=== PATIENT | male | born 1935 | race Caucasian/White ===

== ENCOUNTER 2016-11-20 05:22 | Emergency (ER) | payer MEDICARE, OTHER ==
[2016-11-20 05:28] VITALS: RESP 16
[2016-11-20] MEDS ORDERED: cloNIDine HCL 0.1 MG TAB PO STA (05:29)
[2016-11-20] MEDS ORDERED: OXYMETAZOLINE 0.05% NASL SPRAY 15 ML NASAL STA (05:29)
[2016-11-20 05:48] LABS: Basophils % (A) 0 %; CH 30.6; CHCM 33.8; Eosinophils # (A) 0.2 k/uL (0-0.7); Eosinophils % (A) 3 %; HCT 37.5 % (39.0-53.0); HDW 2.79; HGB 12.5 gm/dL (13.0-17.5); Luc # (Auto) 0.22; Luc % (Auto) 3; Lymphocytes # (A) 1.3 k/uL (1.0-4.8); Lymphocytes % (A) 16 %; MCH 30.3 pg (25.0-35.0); MCHC 33.3 g/dL (31.0-37.0); Mean Platelet Volume 7.2; Monocytes # (A) 0.5 k/uL (0-1.0); Monocytes % (A) 6 %; Neutrophils # (A) 5.4 k/uL (1.3-7.7); Neutrophils % (A) 71 %; RBC 4.12 m/uL (4.30-5.90); RDW 14.4 % (11.5-15.5); WBC 7.6 k/uL (3.8-10.6); WBC (Perox) 7.65
[2016-11-20 05:59] LABS: Anion Gap 13 mmol/L; Blood Urea Nitrogen 33 mg/dL (9-20); Calcium 8.9 mg/dL (8.4-10.2); Carbon Dioxide 26 mmol/L (22-30); Chloride 103 mmol/L (98-107); Glucose 99 mg/dL (74-99); Non-African American GFR(MDRD) >60 (>60 ml/min/1.73 sqM); Potassium 3.9 mmol/L (3.5-5.1); Sodium 142 mmol/L (137-145)
[2016-11-20 06:00] LABS: Partial Thromboplastin Time 22.9 sec (22.0-30.0)
--- NOTE | 2016-11-20 07:14 | ED ---
ENT HPI - General Chief complaint: ENT Stated complaint: nose bleed Time Seen by Provider: 11/20/16 05:28 Source: patient Mode of arrival: EMS Limitations: no limitations - History of Present Illness Initial comments: This patient is an 81-year-old man who presents with nosebleed. He states that he has had some intermittent bleeding over the past couple of days, and then between 1 and 2 hours ago this recurred this morning. The patient states he tried holding pressure there but did not stop, and therefore called the ambulance. The patient denies symptoms of anemia, including no chest pain, dyspnea, nausea or vomiting, diaphoresis, lightheadedness or syncope. Patient is not having any nasal pain. Patient states that he does occasionally get some sinus pressure. MD complaint: epistaxis -: hour(s) Location: nose Severity: mild Consistency: constant Improves with: pressure Worsens with: none Context-Epistaxis: history of similar - Related Data Home Medications Medication Instructions Recorded Confirmed rOPINIRole HCL [Requip] 0.5 mg PO HS 11/20/16 11/20/16 Allergies Allergy/AdvReac Type Severity Reaction Status Date / Time No Known Allergies Allergy Verified 11/20/16 07:46 Review of Systems ROS Statement: Those systems with pertinent positive or pertinent negative responses have been documented in the HPI. ROS Other: All systems not noted in ROS Statement are negative. Constitutional: Denies: fever, chills, weakness Eyes: Denies: vision change ENT: Reports: epistaxis Respiratory: Denies: cough, dyspnea Cardiovascular: Denies: chest pain, palpitations, syncope Gastrointestinal: Denies: abdominal pain, vomiting Neurological: Denies: headache, weakness Hematological/Lymphatic: Denies: easy bleeding Past Medical History Past Medical History: Hypertension, Pneumonia Additional Past Medical History / Comment(s): CURRENTLY NON WT BEARING, USING WHEELCHAIR, HX SKIN CA, RT EYE BLURRED VISION, RECENT TX FOR "PLUGGED LEFT EAR" , RECENT FOR UTI History of Any Multi-Drug Resistant Organisms: None Reported Past Surgical History: Cholecystectomy, Joint Replacement Additional Past Surgical History / Comment(s): 10/24/14 Total R hip arthroplasty. RT KNEE REPLACED X2,LT KNEE REPLACED Past Anesthesia/Blood Transfusion Reactions: No Reported Reaction Past Psychological History: No Psychological Hx Reported Additional Psychological History / Comment(s): Pt lives alone in a multilevel home. Pt has a friend that is availabel to help him with any of his needs. Pt states his biggest problem is getting in and out of bed. Pt and his friend are hoping tohave pt go to [facility] for post op rehab. Pt is mostly in a w/c or bed at this time. Pt has a power w/chair at home and a chairlift to go up the stairs. [facility] did have [place] [facility] coming into the home once a week foe personal care. Pt did not have a good experience with [facility] home care in the past. Smoking Status: Former smoker Past Alcohol Use History: None Reported Additional Past Alcohol Use History / Comment(s): STARTED SMOKING CIGARS 1964 QUIT SMOKING 1993 Past Drug Use History: None Reported - Past Family History Mother Family Medical History: Cancer General Exam Limitations: no limitations General appearance: alert, in no apparent distress Head exam: Present: atraumatic, normocephalic Eye exam: Present: normal appearance ENT exam: Present: normal oropharynx, other (There is blood from the right naris.) Neck exam: Present: normal inspection Respiratory exam: Present: normal lung sounds bilaterally. Absent: respiratory distress, wheezes, rales, rhonchi, stridor Cardiovascular Exam: Present: regular rate, normal rhythm, normal heart sounds. Absent: systolic murmur, diastolic murmur, rubs, gallop Neurological exam: Present: alert Skin exam: Present: warm, dry, intact, normal color. Absent: rash Course Vital Signs 11/20/16 11/20/16 11/20/16 05:24 06:52 07:29 Temperature 97 F L Pulse Rate 80 74 74 Respiratory 16 16 16 Rate Blood Pressure 155/77 158/69 158/77 O2 Sat by Pulse 98 97 97 Oximetry 11/20/16 08:22 Temperature 96.8 F L Pulse Rate 87 Respiratory 16 Rate Blood Pressure 125/59 O2 Sat by Pulse 98 Oximetry Medical Decision Making - Medical Decision Making I did see the patient and apply oxymetazoline spray to the right naris. The pressure was then applied using a epistaxis clamp. I then reevaluated the patient probably 20 minutes later and the bleeding has stopped. There does appear to be a small area of bleeding to the septum which has adequately stopped and does not require any further attention at this point. Discussed follow-up with ENT on as needed basis. Discussed return parameters here. - Lab Data Result diagrams: 11/20/16 05:40 11/20/16 05:40 Lab Results 11/20/16 11/20/16 11/20/16 Range/Units 05:40 05:40 05:40 WBC 7.6 (3.8-10.6) k/uL RBC 4.12 L (4.30-5.90) m/uL Hgb 12.5 L (13.0-17.5) gm/dL Hct 37.5 L (39.0-53.0) % MCV 91.0 (80.0-100.0) fL MCH 30.3 (25.0-35.0) pg MCHC 33.3 (31.0-37.0) g/dL RDW 14.4 (11.5-15.5) % Plt Count 195 (150-450) k/uL Neutrophils % 71 % Lymphocytes % 16 % Monocytes % 6 % Eosinophils % 3 % Basophils % 0 % Neutrophils # 5.4 (1.3-7.7) k/uL Lymphocytes # 1.3 (1.0-4.8) k/uL Monocytes # 0.5 (0-1.0) k/uL Eosinophils # 0.2 (0-0.7) k/uL Basophils # 0.0 (0-0.2) k/uL PT 10.0 (9.0-12.0) sec INR 1.0 (<1.1) APTT 22.9 (22.0-30.0) sec Sodium 142 (137-145) mmol/L Potassium 3.9 (3.5-5.1) mmol/L Chloride 103 (98-107) mmol/L Carbon Dioxide 26 (22-30) mmol/L Anion Gap 13 mmol/L BUN 33 H (9-20) mg/dL Creatinine 0.90 (0.66-1.25) mg/dL Est GFR (MDRD) Af Amer >60 (>60 ml/min/1.73 sqM) Est GFR (MDRD) Non-Af >60 (>60 ml/min/1.73 sqM) Glucose 99 (74-99) mg/dL Calcium 8.9 (8.4-10.2) mg/dL Disposition Clinical Impression: Epistaxis, Hypertension Disposition: HOME SELF-CARE Condition: Good Instructions: Nosebleed (ED), Hypertension (ED) Referrals: None,Stated [Primary Care Provider] - 1-2 days Herbert Alcazar MD [STAFF PHYSICIAN] - 1-2 days
[2016-11-20 08:24] VITALS: BP 125/59; PULSE 87; TEMP 96.8
== END 2016-11-20 08:22 | disposition home or self-care (01) ==
LOC: EC 05:22
DX: R04.0 Epistaxis (principal); I10 Essential (primary) hypertension; Z99.3 Dependence on wheelchair; Z87.891 Personal history of nicotine dependence; Z79.899 Other long term (current) drug therapy
CPT/HCPCS: 36415; 80048; 85025; 85610; 85730; 99284

== ENCOUNTER 2019-06-24 07:11 | Observation (INO) | payer MEDICARE, OTHER ==
[2019-06-24] MEDS ORDERED: ACETAMINOPHEN TAB 500 MG TAB PO STA (07:44)
[2019-06-24] MEDS ORDERED: SODIUM CHLORIDE 0.9% 500 ML 500 ML IV SCH (07:45)
--- NOTE | 2019-06-24 07:49 | ED ---
General Adult HPI - General Chief complaint: Weakness Stated complaint: Weakness Time Seen by Provider: 06/24/19 07:19 Source: patient, EMS, RN notes reviewed Mode of arrival: EMS Limitations: physical limitation - History of Present Illness Initial comments: Patient is a pleasant 84-year-old male presenting to the emergency Department with complaints of general weakness. Onset of symptoms was somewhat yesterday, worse today. No history of similar symptoms previously. No cough. No dyspnea. No abdominal pain. No dysuria. No isolated area of weakness except for chronic right leg weakness. Patient states it just doesn't work. Patient states this is chronic and unchanged. Patient admits to feeling somewhat lightheaded. - Related Data Home Medications Medication Instructions Recorded Confirmed Acetaminophen Tab [Tylenol Tab] 650 mg PO Q4H PRN 06/24/19 06/24/19 Allopurinol [Zyloprim] 100 mg PO BID 06/24/19 06/24/19 Atorvastatin [Lipitor] 20 mg PO HS 06/24/19 06/24/19 Cefditoren Pivoxil 200 mg PO BID 06/24/19 06/24/19 Cholecalciferol (Vitamin D3) 2,000 unit PO DAILY 06/24/19 06/24/19 [Vitamin D3] Docusate [Colace] 100 mg PO DAILY PRN 06/24/19 06/24/19 Fenofibrate 160 mg PO DAILY 06/24/19 06/24/19 Gabapentin [Neurontin] 300 mg PO TID 06/24/19 06/24/19 Gemfibrozil [Lopid] 600 mg PO AC-BID 06/24/19 06/24/19 HYDROcodone/APAP 5-325MG [[place] 1 tab PO BID PRN 06/24/19 06/24/19 5-325] Levothyroxine Sodium [Synthroid] 75 mcg PO DAILY 06/24/19 06/24/19 Lisinopril-Hctz 20-25 mg 1 tab PO DAILY 06/24/19 06/24/19 [Zestoretic 20-25] rOPINIRole HCL [Requip] 1 mg PO HS 06/24/19 06/24/19 Allergies Allergy/AdvReac Type Severity Reaction Status Date / Time No Known Allergies Allergy Verified 06/24/19 09:03 Review of Systems ROS Statement: Those systems with pertinent positive or pertinent negative responses have been documented in the HPI. ROS Other: All systems not noted in ROS Statement are negative. Constitutional: Denies: fever, chills Eyes: Denies: eye pain ENT: Denies: ear pain Respiratory: Denies: cough, dyspnea Cardiovascular: Denies: chest pain Endocrine: Reports: fatigue Gastrointestinal: Denies: abdominal pain, vomiting Genitourinary: Denies: dysuria Musculoskeletal: Denies: back pain Skin: Denies: rash Neurological: Denies: confusion Past Medical History Past Medical History: Hypertension, Pneumonia Additional Past Medical History / Comment(s): CURRENTLY NON WT BEARING, USING WHEELCHAIR, HX SKIN CA, RT EYE BLURRED VISION, RECENT TX FOR "PLUGGED LEFT EAR", RECENT FOR UTI History of Any Multi-Drug Resistant Organisms: None Reported Past Surgical History: Cholecystectomy, Joint Replacement Additional Past Surgical History / Comment(s): 10/24/14 Total R hip arthroplasty. RT KNEE REPLACED X2,LT KNEE REPLACED Past Anesthesia/Blood Transfusion Reactions: No Reported Reaction Past Psychological History: No Psychological Hx Reported Smoking Status: Former smoker Past Alcohol Use History: None Reported Past Drug Use History: None Reported - Past Family History Mother Family Medical History: Cancer General Exam Limitations: physical limitation General appearance: alert, in no apparent distress Head exam: Present: atraumatic Eye exam: Present: other (Right eye opacification which patient states is chronic) ENT exam: Present: mucous membranes dry Neck exam: Present: normal inspection. Absent: meningismus Respiratory exam: Present: normal lung sounds bilaterally Cardiovascular Exam: Present: regular rate, normal rhythm GI/Abdominal exam: Present: soft. Absent: tenderness Extremities exam: Present: normal inspection. Absent: pedal edema, calf tenderness Neurological exam: Present: alert, oriented X3 Expanded Neurological exam: Present: protecting the airway, other (Patient refuses to lift right leg stating chronic problems.) Patient oriented to: Present: person, place, time Speech: Present: fluid speech Motor strength exam: RUE: 5, LUE: 5, LLE: 5 Eye Response: (4) open spontaneously Motor Response: (6) obeys commands Verbal Response: (5) oriented Psychiatric exam: Present: normal affect, normal mood Skin exam: Present: normal color Course Vital Signs 06/24/19 06/24/19 06/24/19 07:13 09:29 09:31 Temperature 100.4 F H 98.9 F Pulse Rate 86 73 Respiratory 16 16 Rate Blood Pressure 121/46 134/57 O2 Sat by Pulse 93 L 100 Oximetry 06/24/19 11:13 Temperature Pulse Rate 66 Respiratory 16 Rate Blood Pressure 104/41 O2 Sat by Pulse 96 Oximetry EKG Findings - EKG Comments: EKG Findings:: Sinus rhythm at 70. First-degree AV block with KS of 232. QRS 96. QT 386. QTc 416. Left axis. LVH criteria. No acute ST change. Medical Decision Making - Medical Decision Making Patient reevaluated and updated. Patient resting comfortably in bed. Case discussed in detail with Dr. Larson, covering for hospital call, who will admit. - Lab Data Result diagrams: 06/24/19 07:26 06/24/19 07:26 Lab Results 06/24/19 06/24/19 06/24/19 Range/Units 07:26 07:26 07:26 WBC 8.8 (3.8-10.6) k/uL RBC 4.07 L (4.30-5.90) m/uL Hgb 11.9 L (13.0-17.5) gm/dL Hct 35.8 L (39.0-53.0) % MCV 87.9 (80.0-100.0) fL MCH 29.3 (25.0-35.0) pg MCHC 33.3 (31.0-37.0) g/dL RDW 16.3 H (11.5-15.5) % Plt Count 189 (150-450) k/uL Neutrophils % 80 % Lymphocytes % 9 % Monocytes % 6 % Eosinophils % 1 % Basophils % 1 % Neutrophils # 7.1 (1.3-7.7) k/uL Lymphocytes # 0.8 L (1.0-4.8) k/uL Monocytes # 0.5 (0-1.0) k/uL Eosinophils # 0.1 (0-0.7) k/uL Basophils # 0.1 (0-0.2) k/uL Anisocytosis Slight PT (9.0-12.0) sec INR (<1.2) APTT (22.0-30.0) sec Sodium 139 (137-145) mmol/L Potassium 5.2 H (3.5-5.1) mmol/L Chloride 100 (98-107) mmol/L Carbon Dioxide 24 (22-30) mmol/L Anion Gap 15 mmol/L BUN 44 H (9-20) mg/dL Creatinine 1.06 (0.66-1.25) mg/dL Est GFR (CKD-EPI)AfAm 75 (>60 ml/min/1.73 sqM) Est GFR (CKD-EPI)NonAf 65 (>60 ml/min/1.73 sqM) Glucose 101 H (74-99) mg/dL Plasma Lactic Acid [place] 1.6 (0.7-2.0) mmol/L Calcium 9.3 (8.4-10.2) mg/dL Total Bilirubin 1.2 (0.2-1.3) mg/dL AST 64 H (17-59) U/L ALT 26 (21-72) U/L Alkaline Phosphatase 77 (38-126) U/L Creatine Kinase 56 (55-170) U/L Troponin I (0.000-0.034) ng/mL Total Protein 7.0 (6.3-8.2) g/dL Albumin 3.9 (3.5-5.0) g/dL Urine Color Urine Appearance (Clear) Urine pH (5.0-8.0) Ur Specific [place] (1.001-1.035) Urine Protein (Negative) Urine Glucose (UA) (Negative) Urine Ketones (Negative) Urine Blood (Negative) Urine Nitrite (Negative) Urine Bilirubin (Negative) Urine Urobilinogen (<2.0) mg/dL Ur Leukocyte Esterase (Negative) Urine RBC (0-5) /hpf Urine WBC (0-5) /hpf Ur Squamous Epith Cells (0-4) /hpf Urine Bacteria (None) /hpf Urine Mucus (None) /hpf 06/24/19 06/24/19 06/24/19 Range/Units 07:26 07:26 09:28 WBC (3.8-10.6) k/uL RBC (4.30-5.90) m/uL Hgb (13.0-17.5) gm/dL Hct (39.0-53.0) % MCV (80.0-100.0) fL MCH (25.0-35.0) pg MCHC (31.0-37.0) g/dL RDW (11.5-15.5) % Plt Count (150-450) k/uL Neutrophils % % Lymphocytes % % Monocytes % % Eosinophils % % Basophils % % Neutrophils # (1.3-7.7) k/uL Lymphocytes # (1.0-4.8) k/uL Monocytes # (0-1.0) k/uL Eosinophils # (0-0.7) k/uL Basophils # (0-0.2) k/uL Anisocytosis PT 10.0 (9.0-12.0) sec INR 0.9 (<1.2) APTT 24.2 (22.0-30.0) sec Sodium (137-145) mmol/L Potassium (3.5-5.1) mmol/L Chloride (98-107) mmol/L Carbon Dioxide (22-30) mmol/L Anion Gap mmol/L BUN (9-20) mg/dL Creatinine (0.66-1.25) mg/dL Est GFR (CKD-EPI)AfAm (>60 ml/min/1.73 sqM) Est GFR (CKD-EPI)NonAf (>60 ml/min/1.73 sqM) Glucose (74-99) mg/dL Plasma Lactic Acid [place] (0.7-2.0) mmol/L Calcium (8.4-10.2) mg/dL Total Bilirubin (0.2-1.3) mg/dL AST (17-59) U/L ALT (21-72) U/L Alkaline Phosphatase (38-126) U/L Creatine Kinase (55-170) U/L Troponin I 0.016 (0.000-0.034) ng/mL Total Protein (6.3-8.2) g/dL Albumin (3.5-5.0) g/dL Urine Color Yellow Urine Appearance Cloudy (Clear) Urine pH 5.5 (5.0-8.0) Ur Specific [place] 1.018 (1.001-1.035) Urine Protein 1+ H (Negative) Urine Glucose (UA) Negative (Negative) Urine Ketones Negative (Negative) Urine Blood Trace H (Negative) Urine Nitrite Positive (Negative) Urine Bilirubin Negative (Negative) Urine Urobilinogen <2.0 (<2.0) mg/dL Ur Leukocyte Esterase Moderate H (Negative) Urine RBC 1 (0-5) /hpf Urine WBC 20 H (0-5) /hpf Ur Squamous Epith Cells <1 (0-4) /hpf Urine Bacteria Many H (None) /hpf Urine Mucus Occasional H (None) /hpf - Radiology Data Radiology results: image reviewed (Chest x-ray shows possible cardiomegaly. Subsegmental atelectasis.) Disposition Clinical Impression: Dehydration, Urinary tract infection Disposition: ADMITTED IP TO THIS HOSP Is patient prescribed a controlled substance at d/c from ED?: No Referrals: None,Stated [Primary Care Provider] - 1-2 days Decision Time: 12:03
[2019-06-24 08:03] LABS: Anisocytosis Slight; Basophils # (A) 0.1 k/uL (0-0.2); Basophils % (A) 1 %; Eosinophils # (A) 0.1 k/uL (0-0.7); Eosinophils % (A) 1 %; HCT 35.8 % (39.0-53.0); HGB 11.9 gm/dL (13.0-17.5); Lymphocytes # (A) 0.8 k/uL (1.0-4.8); Lymphocytes % (A) 9 %; MCH 29.3 pg (25.0-35.0); MCHC 33.3 g/dL (31.0-37.0); MCV 87.9 fL (80.0-100.0); Mean Platelet Volume 9.2; Monocytes # (A) 0.5 k/uL (0-1.0); Monocytes % (A) 6 %; Neutrophils # (A) 7.1 k/uL (1.3-7.7); Neutrophils % (A) 80 %; Platelet Count 189 k/uL (150-450); RBC 4.07 m/uL (4.30-5.90); RDW 16.3 % (11.5-15.5); WBC 8.8 k/uL (3.8-10.6)
[2019-06-24 08:23] LABS: Calcium 9.3 mg/dL (8.4-10.2); Total Bilirubin 1.2 mg/dL (0.2-1.3)
[2019-06-24 08:24] LABS: Albumin 3.9 g/dL (3.5-5.0); Potassium 5.2 mmol/L (3.5-5.1)
--- NOTE | 2019-06-24 08:33 | XR ---
EXAMINATION TYPE: XR chest 2V DATE OF EXAM: 06/24/2019 COMPARISON: Prior chest x-ray 12/03/2014 HISTORY: Fever TECHNIQUE: Frontal and lateral views of the chest are obtained. FINDINGS: Probable subsegmental atelectatic changes are present at the lung bases. There is no pleura l effusion or pneumothorax seen. The cardiac silhouette size is enlarged although appearance may be accentuated by technique, rotation. The osseous structures are intact. Right shoulder is high ridin g suggesting chronic rotator cuff tear, there is associated arthropathy. There are overlying cardiac leads. Lucency at the level of the right hemidiaphragm is thought to represent artifactual appearance rather than pneumoperitoneum, correlate. Aorta is dense. IMPRESSION: Possible cardiomegaly. Subsegmental basilar atelectasis. Additional findings above.
[2019-06-24 08:51] LABS: INR 0.9 (<1.2); Partial Thromboplastin Time 24.2 sec (22.0-30.0)
[2019-06-24 09:58] LABS: Appearance,Urine Cloudy (Clear); Bacteria,Urine Many /hpf; Bilirubin,Urine Negative (Negative); Blood,Urine Trace (Negative); Color,Urine Yellow; Glucose,Urine (UA) Negative (Negative); Ketones,Urine Negative (Negative); Leukocyte Esterase,Urine Moderate (Negative); Mucus,Urine Occasional /hpf; Nitrite,Urine Positive (Negative); PH, Urine 5.5 (5.0-8.0); Protein,Urine 1+ (Negative); RBC,Urine 1 /hpf (0-5); Specific Gravity,Urine 1.018 (1.001-1.035); Squamous Epithelial Cell,Urine <1 /hpf (0-4); Urobilinogen,Urine <2.0 mg/dL (<2.0); WBC,Urine 20 /hpf (0-5)
[2019-06-24] MEDS ORDERED: NALOXONE 0.4 MG/ML 1 ML VIAL IV PRN (12:04)
[2019-06-24] MEDS: SODIUM CHLORIDE 0.9% 1,000 ML IV SCH ×2 (12:56→21:21)
[2019-06-24] MEDS ORDERED: HYDROcodone/APAP 5-325MG 1 EACH TAB PO PRN (15:11)
[2019-06-24] MEDS ORDERED: DOCUSATE 100 MG CAP PO PRN (15:11)
[2019-06-24] MEDS: GABAPENTIN 300 MG CAP PO SCH ×2 (16:11→21:24)
[2019-06-24] MEDS ORDERED: ACETAMINOPHEN TAB 325 MG TAB PO PRN (17:14)
--- NOTE | 2019-06-24 17:17 | P.HPIM ---
History of Present Illness H&P Date: 06/24/19 Chief Complaint: Generalized weakness 84 old male with PMH of hypertension, history of skin cancer post surgical resection leading to right eye blurriness, right lower extremity nonweightbearing post right hip surgery, wheelchair-bound presents to the ED for generalized weakness. Patient reports generalized weakness has been ongoing since yesterday. She states that he is usually up at exam and is out and about until 10 PM. Patient reports difficulty pulling himself up out of bed that has been ongoing for the past 2 days. He reports chronic right lower extremity weakness or inability to use his right lower extremity. He attributes this to hip surgery was done 4-5 years ago that led to him being wheelchair bound. He denies any headaches, lower extremity edema, nausea or vomiting, fever or chills, cough, chest pain, shortness of breath, palpitations, changes in urination. He denies any dysuria. No changes in appetite or weight. He denies any dizziness, nu mbness/weakness/tingling of the extremities. Patient reports a two-week history of diarrhea described as loose stool. In the ED, vital signs are stable. CBC showed hemoglobin of 11.9. Correlation panel was negative. CMP showed a potassium of 5.2, BUN 44 and AST of 64. Troponin was 0.016, EKG showing sinus rhythm with sinus arrhythmia and first- degree AV block. Chest x-ray showed subsegmental basilar atelectasis. Urinalysis showed positive nitrite, moderate leukocyte esterase. Patient is admitted for dehydration and possible urinary tract infection. Review of Systems Pertinent positives and negatives as discussed in HPI, a complete review of systems was performed and all other systems are negative. 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 RT KNEE REPLACED X2,LT KNEE REPLACED Past Anesthesia/Blood Transfusion Reactions: No Reported Reaction Past Psychological History: No Psychological Hx Reported Smoking Status: Former smoker Past Alcohol Use History: None Reported Additional Past Alcohol Use History / Comment(s): STARTED SMOKING CIGARS 1964 QUIT SMOKING 1993 Past Drug Use History: None Reported - Past Family History Mother Family Medical History: Cancer Medications and Allergies Home Medications Medication Instructions Recorded Confirmed Type Acetaminophen Tab [Tylenol Tab] 650 mg PO Q4H PRN 06/24/19 06/24/19 History Allopurinol [Zyloprim] 100 mg PO BID 06/24/19 06/24/19 History Atorvastatin [Lipitor] 20 mg PO HS 06/24/19 06/24/19 History Cefditoren Pivoxil 200 mg PO BID 06/24/19 06/24/19 History Cholecalciferol (Vitamin D3) 2,000 unit PO DAILY 06/24/19 06/24/19 History [Vitamin D3] Docusate [Colace] 100 mg PO DAILY PRN 06/24/19 06/24/19 History Fenofibrate 160 mg PO DAILY 06/24/19 06/24/19 History Gabapentin [Neurontin] 300 mg PO TID 06/24/19 06/24/19 History Gemfibrozil [Lopid] 600 mg PO AC-BID 06/24/19 06/24/19 History HYDROcodone/APAP 5-325MG [[place] 1 tab PO BID PRN 06/24/19 06/24/19 History 5-325] Levothyroxine Sodium [Synthroid] 75 mcg PO DAILY 06/24/19 06/24/19 History Lisinopril-Hctz 20-25 mg 1 tab PO DAILY 06/24/19 06/24/19 History [Zestoretic 20-25] rOPINIRole HCL [Requip] 1 mg PO HS 06/24/19 06/24/19 History Allergies Allergy/AdvReac Type Severity Reaction Status Date / Time No Known Allergies Allergy Verified 06/24/19 09:03 Physical Exam Vitals: Vital Signs Temp Pulse Pulse Resp BP BP Pulse Ox 06/24/19 13:25 98.4 F 74 22 135/84 96 06/24/19 11:13 66 16 104/41 96 06/24/19 09:31 98.9 F 06/24/19 09:29 73 16 134/57 100 06/24/19 07:13 100.4 F H 86 16 121/46 93 L Intake and Output 06/24/19 06/24/19 06/24/19 06:59 14:59 22:59 Output Total 200 Balance -200 Output: Urine 200 Other: # Voids 1 1 # Bowel Movements 1 2 Weight 90.718 kg General: [non toxic], [no distress], [appears at stated age] Derm: [warm], [dry] Head: [atraumatic], [normocephalic], [symmetric] Eyes: [EOMI], [no lid lag], [anicteric sclera] Mouth: [no lip lesion], [mucus membranes moist] Cardiovascular: [S1S2 reg], [no murmur], [positive DP pulse bilateral] Lungs: [Decreased breath sounds bilateral], [no rhonchi, no rales] , [no a ccessory muscle use] Abdominal: [soft], [ nontender to palpation], [no guarding], [no appreciable or ganomegaly] Ext: [no gross muscle atrophy], [no edema], [no contractures] Neuro: [ CN II-XI grossly intact except decreased vision in right eye], [1 out of 5 strength in the right lower extremity, 4 out of 5 strength throughout otherwise] Psych: [Alert], [oriented], [appropriate affect] Results CBC & Chem 7: 06/24/19 07:26 06/24/19 07:26 Labs: Abnormal Lab Results - Last 24 Hours (Table) 06/24/19 06/24/19 06/24/19 Range/Units 07:26 07:26 09:28 RBC 4.07 L (4.30-5.90) m/uL Hgb 11.9 L (13.0-17.5) gm/dL Hct 35.8 L (39.0-53.0) % RDW 16.3 H (11.5-15.5) % Lymphocytes # 0.8 L (1.0-4.8) k/uL Potassium 5.2 H (3.5-5.1) mmol/L BUN 44 H (9-20) mg/dL Glucose 101 H (74-99) mg/dL AST 64 H (17-59) U/L Urine Protein 1+ H (Negative) Urine Blood Trace H (Negative) Ur Leukocyte Esterase Moderate H (Negative) Urine WBC 20 H (0-5) /hpf Urine Bacteria Many H (None) /hpf Urine Mucus Occasional H (None) /hpf Microbiology - Last 24 Hours (Table) 06/24/19 09:28 Urine Culture - Preliminary Urine,Catheterized Thrombosis Risk Factor Assmnt - Choose All That Apply Each Factor Represents 1 point: Medical pt on bed rest, Obesity (BMI >25), Swollen legs (current) Each Risk Factor Represents 2 Points: Patient confined to bed Each Risk Factor Represents 3 Points: Age 75 years or older Thrombosis Risk Factor Assessment Total Risk Factor Score: 8 Thrombosis Risk Factor Assessment Level: High Risk Assessment and Plan Assessment: Assessment and Plan Generalized weakness Prerenal azotemia Abnormal urinalysis Hypothyroidism Dyslipidemia Appears to be due to dehydration. BUN 44, creatinine within normal limits. Chest x-ray showing subsegmental basilar atelectasis. UA is positive for nitrites and leukocyte esterase. Plans: Start normal saline at 126 mL per hour. Fall precautions. Follow urine culture. PT and OT recommendations. BUN 44, creatinine within normal limits. Due to dehydration. Plans: IVF as above. Urinalysis positive for nitrite and leukocyte esterase. Patient asymptomatic. Plans: Repeat UA. Follow urine culture. DC Rocephin for asymptomatic bacteriuria. Plans: Continue Synthroid. Plans: Continue fenofibrate. Continue Lipitor. DVT prophylaxis: [Heparin] Discussed with: [Patient] Anticipated discharge: [1-2 days] Anticipated discharge place: [Assisted living at [facility] in [facility]] A total of [45] minutes was spent on the care of this complex patient more than 50% of the time was spent in counseling and care coordination. Patient reports wanting to remain full code at this time. If he is unable to make decisions for himself, he would like John Holbrook his neighbor and friend to make decisions for him.
[2019-06-24] MEDS ORDERED: GEMFIBROZIL 600 MG PO SCH (17:30)
[2019-06-24] MEDS ORDERED: ATORVASTATIN 20 MG TAB PO SCH (21:00)
[2019-06-24] MEDS: ALLOPURINOL 100 MG TAB PO SCH (21:24)
[2019-06-24] MEDS: HEPARIN SODIUM,PORCINE 5,000 UNIT/ML 1 ML VIAL SQ SCH (21:24)
[2019-06-25 02:10] VITALS: RESP 20
[2019-06-25] MEDS: SODIUM CHLORIDE 0.9% 1,000 ML IV SCH (05:10)
[2019-06-25 05:14] VITALS: BP 133/65; PULSE 62; TEMP 97.6
[2019-06-25] MEDS ORDERED: LEVOTHYROXINE 75 MCG TAB PO SCH (06:30)
[2019-06-25 08:12] LABS: Basophils % (A) 0 %; Eosinophils # (A) 0.2 k/uL (0-0.7); Eosinophils % (A) 3 %; HCT 32.5 % (39.0-53.0); HGB 10.8 gm/dL (13.0-17.5); Lymphocytes # (A) 1.1 k/uL (1.0-4.8); Lymphocytes % (A) 16 %; MCH 29.2 pg (25.0-35.0); MCHC 33.2 g/dL (31.0-37.0); MCV 87.8 fL (80.0-100.0); Mean Platelet Volume 7.9; Monocytes # (A) 0.5 k/uL (0-1.0); Monocytes % (A) 7 %; Neutrophils # (A) 4.9 k/uL (1.3-7.7); Neutrophils % (A) 70 %; Platelet Count 180 k/uL (150-450); RDW 15.7 % (11.5-15.5); WBC 7.1 k/uL (3.8-10.6)
[2019-06-25] MEDS: HEPARIN SODIUM,PORCINE 5,000 UNIT/ML 1 ML VIAL SQ SCH (08:35)
[2019-06-25] MEDS: ALLOPURINOL 100 MG TAB PO SCH (08:36)
[2019-06-25] MEDS: GABAPENTIN 300 MG CAP PO SCH (08:36)
[2019-06-25 08:40] LABS: ALT 40 U/L (21-72); AST 68 U/L (17-59); African American GFR (CKD) >90 (>60 ml/min/1.73 sqM); Albumin 3.2 g/dL (3.5-5.0); Alkaline Phosphatase 83 U/L (38-126); Anion Gap 8 mmol/L; Blood Urea Nitrogen 33 mg/dL (9-20); Carbon Dioxide 27 mmol/L (22-30); Chloride 105 mmol/L (98-107); Glucose 91 mg/dL (74-99); Potassium 4.3 mmol/L (3.5-5.1); Sodium 140 mmol/L (137-145); Total Bilirubin 0.4 mg/dL (0.2-1.3); Total Protein 5.8 g/dL (6.3-8.2)
[2019-06-25] MEDS ORDERED: FENOFIBRATE 160 MG TAB PO SCH (09:00)
--- NOTE | 2019-06-25 09:36 | P.DS ---
Providers Date of admission: 06/24/19 12:15 Expected date of discharge: 06/25/19 Attending physician: Alcira Springer MD Primary care physician: Stated None Hospital Course: 84 old male with PMH of hypertension, history of skin cancer post surgical resection leading to right eye blurriness, right lower extremity nonweightbearing post right hip surgery, wheelchair-bound presents to the ED for generalized weakness. Patient reports generalized weakness has been ongoing since yesterday. She states that he is usually up at exam and is out and about until 10 PM. Patient reports difficulty pulling himself up out of bed that has been ongoing for the past 2 days. He reports chronic right lower extremity weakness or inability to use his right lower extremity. He attributes this to hip surgery was done 4-5 years ago that led to him being wheelchair bound. He denies any headaches, lower extremity edema, nausea or vomiting, fever or chills, cough, chest pain, shortness of breath, palpitations, changes in urination. He denies any dysuria. No changes in appetite or weight. He denies any dizziness, numbness/weakness/tingling of the extremities. Patient reports a two-week history of diarrhea described as loose stool. In the ED, vital signs are stable. CBC showed hemoglobin of 11.9. Correlation panel was negative. CMP showed a potassium of 5.2, BUN 44 and AST of 64. Troponin was 0.016, EKG showing sinus rhythm with sinus arrhythmia and first- degree AV block. Chest x-ray showed subsegmental basilar atelectasis. Urinalysis showed positive nitrite, moderate leukocyte esterase. Patient was admitted for dehydration and possible urinary tract infection, he was started on Rocephin. His potassium normalized from 5.2-4.3 on discharge. Patient had a prerenal azotemia with a BUN of 44 on admission. He was hydrated with normal saline. His BUN at the time of discharge was 33. Patient denied any abdominal or urinary complaints while hospitalized. Physical therapy evaluated the patient and cleared the patient for discharge. Patient was noted to be on an oral antibiotic Cefditoren on his medication list, patient denied being on such medication. Patient was seen and examined prior to discharge. No acute events overnight. A she was sitting up at the side of the bed comfortably. Patient reports resolution of his weakness since being able to sit up. He denies any chest pain, shortness of breath or palpitations. No nausea or vomiting. No fever or chills. No abdominal pain or dysuria. Wanting to go home. General: [non toxic], [no distress], [appears at stated age] Derm: [warm], [dry] Head: [atraumatic], [normocephalic], [symmetric] Eyes: [no lid lag], [anicteric sclera] Cardiovascular: [S1S2 reg], [no murmur], [positive DP pulse bilateral] Lungs: [Decreased breath sounds bilateral], [no rhonchi, no rales] , [no accessory muscle use] Abdominal: [soft], [ nontender to palpation], [no guarding], [no appreciable organomegaly] Ext: [no gross muscle atrophy], [no edema], [no contractures] Psych: [Alert], [oriented], [appropriate affect] Assessment and Plan Generalized weakness, resolved Prerenal azotemia Asymptomatic bacteriuria Hypothyroidism Dyslipidemia Appears to be due to dehydration. BUN 44-33, creatinine within normal limits. Chest x-ray showing subsegmental basilar atelectasis. UA is positive for nitrites and leukocyte esterase. Plans: DC IVF and encourage hydration by mouth. Fall precautions. Follow urine culture. PT and OT recommendations. BUN 44-33, creatinine within normal limits. Due to dehydration. Plans: DC IVF and encourage hydration by mouth. Urinalysis positive for nitrite and leukocyte esterase. Patient asymptomatic. Plans: Follow urine culture. Got 2 days of Rocephin, will continue 3 more days of Bactrim to complete treatment. Plans: Continue Synthroid. Plans: Continue fenofibrate. Continue Lipitor. [Repeat BMP in 3 days. 3 days of Bactim DS BID. Follow PCP within 3 days of discharge to follow up urine culture.] Pertinent Studies: chest x-ray Patient Condition at Discharge: Stable Plan - Discharge Summary New Discharge Prescriptions: New Sulfamethox-Tmp 800-160Mg [Bactrim DS 800-160 mg] 1 tab PO Q12HR #6 tab Continue Gemfibrozil [Lopid] 600 mg PO AC-BID Gabapentin [Neurontin] 300 mg PO TID Fenofibrate 160 mg PO DAILY Allopurinol [Zyloprim] 100 mg PO BID rOPINIRole HCL [Requip] 1 mg PO HS Lisinopril-Hctz 20-25 mg [Zestoretic 20-25] 1 tab PO DAILY Levothyroxine Sodium [Synthroid] 75 mcg PO DAILY HYDROcodone/APAP 5-325MG [[place] 5-325] 1 tab PO BID PRN PRN Reason: Pain Docusate [Colace] 100 mg PO DAILY PRN PRN Reason: Constipation Atorvastatin [Lipitor] 20 mg PO HS Acetaminophen Tab [Tylenol] 650 mg PO Q4H PRN PRN Reason: Pain Cholecalciferol (Vitamin D3) [Vitamin D3] 2,000 unit PO DAILY Discontinued Cefditoren Pivoxil 200 mg PO BID Discharge Medication List Acetaminophen Tab [Tylenol] 650 mg PO Q4H PRN 06/24/19 [History] Allopurinol [Zyloprim] 100 mg PO BID 06/24/19 [History] Atorvastatin [Lipitor] 20 mg PO HS 06/24/19 [History] Cholecalciferol (Vitamin D3) [Vitamin D3] 2,000 unit PO DAILY 06/24/19 [History] Docusate [Colace] 100 mg PO DAILY PRN 06/24/19 [History] Fenofibrate 160 mg PO DAILY 06/24/19 [History] Gabapentin [Neurontin] 300 mg PO TID 06/24/19 [History] Gemfibrozil [Lopid] 600 mg PO AC-BID 06/24/19 [History] HYDROcodone/APAP 5-325MG [[place] 5-325] 1 tab PO BID PRN 06/24/19 [History] Levothyroxine Sodium [Synthroid] 75 mcg PO DAILY 06/24/19 [History] Lisinopril-Hctz 20-25 mg [Zestoretic 20-25] 1 tab PO DAILY 06/24/19 [History] rOPINIRole HCL [Requip] 1 mg PO HS 06/24/19 [History] Sulfamethox-Tmp 800-160Mg [Bactrim DS 800-160 mg] 1 tab PO Q12HR #6 tab 06/25/19 [Rx] Follow up Appointment(s)/Referral(s): None,Stated [Primary Care Provider] - 1-2 days Ambulatory/Diagnostic Orders: Basic Metabolic Panel [LAB.AMB] Time Frame: 3 Days, Location: None Selected Activity/Diet/Wound Care/Special Instructions: Diet: NDD3, chopped Follow-up PCP within 3 days of discharge. Take all medications as advised. Follow-up with PCP for the results of your urine culture. Discharge Disposition: HOME SELF-CARE
== END 2019-06-25 11:10 | disposition home or self-care (01) ==
LOC: EC 07:11 → 4MS4W 12:15
PROVIDERS: ADMIT Family Medicine; ATTEND Family Medicine
DX: R53.1 Weakness (principal); R79.89 Other specified abnormal findings of blood chemistry; R82.71 Bacteriuria; E03.9 Hypothyroidism, unspecified; E78.5 Hyperlipidemia, unspecified; E86.0 Dehydration; I10 Essential (primary) hypertension; H53.8 Other visual disturbances; R19.7 Diarrhea, unspecified; E66.9 Obesity, unspecified; Z68.27 Body mass index [BMI] 27.0-27.9, adult; Z87.01 Personal history of pneumonia (recurrent); Z85.828 Personal history of other malignant neoplasm of skin; Z87.440 Personal history of urinary (tract) infections; Z87.891 Personal history of nicotine dependence; Z90.49 Acquired absence of other specified parts of digestive tract; Z79.899 Other long term (current) drug therapy; Z79.890 Hormone replacement therapy; Z79.891 Long term (current) use of opiate analgesic; Z74.01 Bed confinement status; Z99.3 Dependence on wheelchair; Z80.9 Family history of malignant neoplasm, unspecified
CPT/HCPCS: 96366 ×2; 96372 ×2; 96365; 99285; 36415; 94760; 93005; 97162; 97166; 92610; 80053 ×2; 82550; 83605; 84484; 85025 ×2; 85610; 85730; 81001; 87040; 87086; 87077; 87186; 71046; G0378 ×2; J1644 ×2; J0696 ×2

== ENCOUNTER 2019-12-02 17:09 | Inpatient (IN) | payer MEDICARE ==
[2019-12-02] MEDS ORDERED: SODIUM CHLORIDE 0.9% 1,000 ML IV STA (17:55)
--- NOTE | 2019-12-02 17:55 | ED ---
Extremity Problem HPI - General Chief complaint: Extremity Problem,Nontraumatic Stated complaint: Toe infections Time Seen by Provider: 12/02/19 17:20 Source: patient, RN notes reviewed, old records reviewed Mode of arrival: wheelchair Limitations: no limitations - History of Present Illness Initial comments: This is an 84-year-old male DF for evaluation moderately poor story coming in for left foot pain patient presents from extended care facility for evaluation of left second home redness and erythema tenderness especially with ambulation. No fevers. MD Complaint: extremity pain, other (Left foot and toe pain) Location: left, toe Radiation: none Severity scale (1-10): 3 Consistency: constant Improves with: nothing Worsens with: nothing Associated Symptoms: denies other symptoms - Related Data Home Medications Medication Instructions Recorded Confirmed Acetaminophen Tab [Tylenol] 650 mg PO Q4H PRN 06/24/19 06/24/19 Allopurinol [Zyloprim] 100 mg PO BID 06/24/19 06/24/19 Atorvastatin [Lipitor] 20 mg PO HS 06/24/19 06/24/19 Cholecalciferol (Vitamin D3) 2,000 unit PO DAILY 06/24/19 06/24/19 [Vitamin D3] Docusate [Colace] 100 mg PO DAILY PRN 06/24/19 06/24/19 Fenofibrate 160 mg PO DAILY 06/24/19 06/24/19 Gabapentin [Neurontin] 300 mg PO TID 06/24/19 06/24/19 Gemfibrozil [Lopid] 600 mg PO AC-BID 06/24/19 06/24/19 HYDROcodone/APAP 5-325MG [[place] 1 tab PO BID PRN 06/24/19 06/24/19 5-325] Levothyroxine Sodium [Synthroid] 75 mcg PO DAILY 06/24/19 06/24/19 Lisinopril-Hctz 20-25 mg 1 tab PO DAILY 06/24/19 06/24/19 [Zestoretic 20-25] rOPINIRole HCL [Requip] 1 mg PO HS 06/24/19 06/24/19 Previous Rx's Medication Instructions Recorded Sulfamethox-Tmp 800-160Mg [Bactrim 1 tab PO Q12HR #6 tab 06/25/19 DS 800-160 mg] Allergies Allergy/AdvReac Type Severity Reaction Status Date / Time No Known Allergies Allergy Verified 06/24/19 09:03 Review of Systems ROS Statement: Those systems with pertinent positive or pertinent negative responses have been documented in the HPI. ROS Other: All systems not noted in ROS Statement are negative. Past Medical History Past Medical History: Hypertension, Pneumonia Additional Past Medical History / Comment(s): CURRENTLY NON WT BEARING, USING WHEELCHAIR, HX SKIN CA ON RIGHT SIDE OF FACE, RT EYE BLURRED VISION R/T SKIN CANCER TREATMENT ON FACE, UTI History of Any Multi-Drug Resistant Organisms: None Reported Past Surgical History: Cholecystectomy, Joint Replacement Additional Past Surgical History / Comment(s): 10/24/14 Total R hip arthroplasty . RT KNEE REPLACED X2,LT KNEE REPLACED Past Anesthesia/Blood Transfusion Reactions: No Reported Reaction Past Psychological History: No Psychological Hx Reported Smoking Status: Former smoker Past Alcohol Use History: None Reported Past Drug Use History: None Reported - Past Family History Mother Family Medical History: Cancer General Exam - General Exam Comments Initial Comments: Left fourth toe erythema tenderness warm Limitations: no limitations General appearance: alert, in no apparent distress Head exam: Present: atraumatic, normocephalic, normal inspection Eye exam: Present: normal appearance, PERRL, EOMI. Absent: scleral icterus, conjunctival injection, periorbital swelling ENT exam: Present: normal exam, mucous membranes moist Neck exam: Present: normal inspection. Absent: tenderness, meningismus, lymphadenopathy Respiratory exam: Present: normal lung sounds bilaterally. Absent: respiratory distress, wheezes, rales, rhonchi, stridor Cardiovascular Exam: Present: regular rate, normal rhythm, normal heart sounds. Absent: systolic murmur, diastolic murmur, rubs, gallop, clicks GI/Abdominal exam: Present: soft, normal bowel sounds. Absent: distended, tenderness, guarding, rebound, rigid Extremities exam: Present: normal inspection, full ROM, normal capillary refill. Absent: tenderness, pedal edema, joint swelling, calf tenderness Back exam: Present: normal inspection Neurological exam: Present: alert, oriented X3, CN II-XII intact Psychiatric exam: Present: normal affect, normal mood Skin exam: Present: warm, dry, intact, normal color. Absent: rash Course Vital Signs 12/02/19 12/02/19 12/02/19 17:13 17:17 18:17 Temperature 97.9 F Pulse Rate 74 86 Respiratory 18 16 16 Rate Blood Pressure 153/80 160/67 O2 Sat by Pulse 92 L 95 Oximetry - Reevaluation(s) Reevaluation #1: 12/02/19 18:04 Medical records reviewed Reevaluation #2: 12/02/19 19:20 Patient is in no acute distress or pain informed of results with questions being answered - Consultations Consultation #1: Spoke with sound to is agreeable for admission Medical Decision Making - Medical Decision Making 81 female to the ER for evaluation patient does have x-ray suspicious for osteomyelitis of toe. Patient has exam suspicious for severe cellulitis gangrene of toe. Patient will be admitted for IV antibiotics - Lab Data Result diagrams: 12/02/19 18:15 12/02/19 18:15 Lab Results 12/02/19 12/02/19 12/02/19 Range/Units 18:15 18:15 18:15 WBC 12.3 H (3.8-10.6) k/uL RBC 4.67 (4.30-5.90) m/uL Hgb 13.4 (13.0-17.5) gm/dL Hct 41.1 (39.0-53.0) % MCV 87.9 (80.0-100.0) fL MCH 28.6 (25.0-35.0) pg MCHC 32.6 (31.0-37.0) g/dL RDW 14.7 (11.5-15.5) % Plt Count 183 (150-450) k/uL Neutrophils % 77 % Lymphocytes % 12 % Monocytes % 5 % Eosinophils % 3 % Basophils % 0 % Neutrophils # 9.5 H (1.3-7.7) k/uL Lymphocytes # 1.5 (1.0-4.8) k/uL Monocytes # 0.6 (0-1.0) k/uL Eosinophils # 0.3 (0-0.7) k/uL Basophils # 0.0 (0-0.2) k/uL PT (9.0-12.0) sec INR (<1.2) Sodium 139 (137-145) mmol/L Potassium 5.6 H (3.5-5.1) mmol/L Chloride 99 (98-107) mmol/L Carbon Dioxide 27 (22-30) mmol/L Anion Gap 13 mmol/L BUN 44 H (9-20) mg/dL Creatinine 0.88 (0.66-1.25) mg/dL Est GFR (CKD-EPI)AfAm >90 (>60 ml/min/1.73 sqM) Est GFR (CKD-EPI)NonAf 80 (>60 ml/min/1.73 sqM) Glucose 101 H (74-99) mg/dL Plasma Lactic Acid Adan 1.4 (0.7-2.0) mmol/L Calcium 10.7 H (8.4-10.2) mg/dL Phosphorus 3.9 (2.5-4.5) mg/dL Magnesium 2.2 (1.6-2.3) mg/dL Total Bilirubin 0.8 (0.2-1.3) mg/dL AST 57 (17-59) U/L ALT 20 (4-49) U/L Alkaline Phosphatase 131 H (38-126) U/L Creatine Kinase 72 (55-170) U/L Troponin I (0.000-0.034) ng/mL Total Protein 8.4 H (6.3-8.2) g/dL Albumin 4.9 (3.5-5.0) g/dL 12/02/19 12/02/19 Range/Units 18:15 18:15 WBC (3.8-10.6) k/uL RBC (4.30-5.90) m/uL Hgb (13.0-17.5) gm/dL Hct (39.0-53.0) % MCV (80.0-100.0) fL MCH (25.0-35.0) pg MCHC (31.0-37.0) g/dL RDW (11.5-15.5) % Plt Count (150-450) k/uL Neutrophils % % Lymphocytes % % Monocytes % % Eosinophils % % Basophils % % Neutrophils # (1.3-7.7) k/uL Lymphocytes # (1.0-4.8) k/uL Monocytes # (0-1.0) k/uL Eosinophils # (0-0.7) k/uL Basophils # (0-0.2) k/uL PT 9.7 (9.0-12.0) sec INR 0.9 (<1.2) Sodium (137-145) mmol/L Potassium (3.5-5.1) mmol/L Chloride (98-107) mmol/L Carbon Dioxide (22-30) mmol/L Anion Gap mmol/L BUN (9-20) mg/dL Creatinine (0.66-1.25) mg/dL Est GFR (CKD-EPI)AfAm (>60 ml/min/1.73 sqM) Est GFR (CKD-EPI)NonAf (>60 ml/min/1.73 sqM) Glucose (74-99) mg/dL Plasma Lactic Acid Adan (0.7-2.0) mmol/L Calcium (8.4-10.2) mg/dL Phosphorus (2.5-4.5) mg/dL Magnesium (1.6-2.3) mg/dL Total Bilirubin (0.2-1.3) mg/dL AST (17-59) U/L ALT (4-49) U/L Alkaline Phosphatase (38-126) U/L Creatine Kinase (55-170) U/L Troponin I <0.012 (0.000-0.034) ng/mL Total Protein (6.3-8.2) g/dL Albumin (3.5-5.0) g/dL - EKG Data -: EKG Interpreted by Me (EKG shows sinus a rate of 80, ND 304, QRS 80, QTC 428) - Radiology Data Radiology results: report reviewed (Left foot suspicious for osteomyelitis), image reviewed Disposition Clinical Impression: Osteomyelitis of fourth toe of left foot Disposition: ADMITTED IP TO THIS [facility] Condition: Fair Is patient prescribed a controlled substance at d/c from ED?: No Referrals: None,Stated [Primary Care Provider] - 1-2 days
[2019-12-02 18:33] LABS: ALT 20 U/L (4-49); AST 57 U/L (17-59); African American GFR (CKD) >90 (>60 ml/min/1.73 sqM); Albumin 4.9 g/dL (3.5-5.0); Alkaline Phosphatase 131 U/L (38-126); Anion Gap 13 mmol/L; Blood Urea Nitrogen 44 mg/dL (9-20); Calcium 10.7 mg/dL (8.4-10.2); Carbon Dioxide 27 mmol/L (22-30); Chloride 99 mmol/L (98-107); Creatine Kinase 72 U/L (55-170); Glucose 101 mg/dL (74-99); Magnesium 2.2 mg/dL (1.6-2.3); Non-African American GFR(CKD) 80 (>60 ml/min/1.73 sqM); Phosphorus 3.9 mg/dL (2.5-4.5); Potassium 5.6 mmol/L (3.5-5.1); Sodium 139 mmol/L (137-145); Total Bilirubin 0.8 mg/dL (0.2-1.3); Total Protein 8.4 g/dL (6.3-8.2)
[2019-12-02 18:40] LABS: Basophils % (A) 0 %; Eosinophils # (A) 0.3 k/uL (0-0.7); Eosinophils % (A) 3 %; HCT 41.1 % (39.0-53.0); HGB 13.4 gm/dL (13.0-17.5); Lymphocytes # (A) 1.5 k/uL (1.0-4.8); Lymphocytes % (A) 12 %; MCH 28.6 pg (25.0-35.0); MCHC 32.6 g/dL (31.0-37.0); MCV 87.9 fL (80.0-100.0); Mean Platelet Volume 10.5; Monocytes # (A) 0.6 k/uL (0-1.0); Monocytes % (A) 5 %; Neutrophils # (A) 9.5 k/uL (1.3-7.7); Neutrophils % (A) 77 %; Platelet Count 183 k/uL (150-450); RBC 4.67 m/uL (4.30-5.90); RDW 14.7 % (11.5-15.5); WBC 12.3 k/uL (3.8-10.6)
--- NOTE | 2019-12-02 18:47 | XR ---
PROCEDURE: XR foot complete LT - 3V DATE AND TIME: 12/02/2019 6:33 PM CLINICAL INDICATION: PHH; pain TECHNIQUE: Department protocol COMPARISON: None FINDINGS: ACUTE/SUBACUTE FINDINGS: The soft tissues are remarkable for soft tissue swelling involving the fourt h toe and, to a slightly lesser artifact, the fifth toe. In addition, the middle phalanx of the fourth toe shows a 1 cm focus of osteopenia laterally, suspici ous for osteomyelitis, extending proximally to the interphalangeal joint. CHRONIC FINDINGS: Scattered advanced atherosclerotic changes are noted with scattered osteoarthritis changes, most pronounced at the first MTP articulation. IMPRESSION: FINDINGS SUSPICIOUS FOR OSTEOMYELITIS.
[2019-12-02 18:48] LABS: INR 0.9 (<1.2); Prothrombin Time 9.7 sec (9.0-12.0)
[2019-12-02] MEDS ORDERED: VANCOMYCIN IV PER PHARMACY 1 EACH MISC MISCELLANE PRN (19:18)
[2019-12-02] MEDS ORDERED: VANCOMYCIN 2,000 MG in SODIUM CHLORIDE 0.9% 500 ML 500 ML IVPB ONE (20:00)
[2019-12-02] MEDS ORDERED: NALOXONE 0.4 MG/ML 1 ML VIAL IV PRN (21:56)
[2019-12-02] MEDS ORDERED: ACETAMINOPHEN TAB 325 MG TAB PO PRN (21:56)
[2019-12-02 21:58] LABS: INR 0.9 (<1.2); Partial Thromboplastin Time 23.4 sec (22.0-30.0); Prothrombin Time 9.7 sec (9.0-12.0)
--- NOTE | 2019-12-02 21:59 | P.HPIM ---
History of Present Illness H&P Date: 12/02/19 Chief Complaint: Osteomyelitis 84-year-old male with PMH of hypertension, hypothyroidism, skin cancer of the face status post surgical intervention leading to right eye blurry vision, right lower extremity nonweightbearing after right hip surgery, wheelchair-bound presents the ED for 1 week of left foot pain. Patient reports shooting and stabbing pain in his right foot that has been progressively getting worse over the past week. Patient also reports that the fourth digit of his left foot is starting to turn black. He denies any headache, lower extremity edema, nausea or vomiting, fever or chills, cough, chest pain, shortness of breath, changes in urination or bowel habits. No changes in appetite or weight. Patient denies any dizziness, numbness/weakness/tingling of the extremities. In the ED, his vital signs were stable. CBC showed leukocytosis of 12.3. Coagulation panel was negative. CMP showed potassium of 5.6, BUN 44, glucose 101, calcium 10.7, alkaline phosphatase 131. Troponin was less than 0.012, EKG showing sinus rhythm with first-degree AV block along with incomplete right BBB. Left foot x- ray showed soft tissue swelling involving the fourth toe and the fifth toe. Patient is admitted for osteomyelitis and for ID evaluation. Review of Systems Pertinent positives and negatives as discussed in HPI, a complete review of systems was performed and all other systems are negative. 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 RT KNEE REPLACED X2,LT KNEE REPLACED Past Anesthesia/Blood Transfusion Reactions: No Reported Reaction Past Psychological History: No Psychological Hx Reported Additional Psychological History / Comment(s): Pt lives alone in a multilevel home. Pt has a friend that is availabel to help him with any of his needs. Pt states his biggest problem is getting in and out of bed. Pt and his friend are hoping tohave pt go to [facility] post [facility]. Pt is mostly in a w/c or bed at this time. Pt has a power w/chair at home and a chairlift to go up the stairs. [facility] did have [facility] coming into the home once a week foe personal care. Pt did not have a good experience with [facility] in the past. Smoking Status: Former smoker Past Alcohol Use History: None Reported Additional Past Alcohol Use History / Comment(s): STARTED SMOKING CIGARS 1964 QUIT SMOKING 1993 Past Drug Use History: None Reported - Past Family History Mother Family Medical History: Cancer Medications and Allergies Home Medications Medication Instructions Recorded Confirmed Type HYDROcodone/APAP 5-325MG [[place] 1 tab PO BID PRN 06/24/19 12/02/19 History 5-325] Levothyroxine Sodium [Synthroid] 75 mcg PO DAILY 06/24/19 12/02/19 History Lisinopril-Hctz 20-25 mg 1 tab PO DAILY 06/24/19 12/02/19 History [Zestoretic 20-25] rOPINIRole HCL [Requip] 1 mg PO HS 06/24/19 12/02/19 History Allergies Allergy/AdvReac Type Severity Reaction Status Date / Time No Known Allergies Allergy Verified 12/02/19 21:29 Physical Exam Vitals: Vital Signs Temp Pulse Pulse Resp BP BP Pulse Ox 12/02/19 20:59 97.4 F L 90 18 158/70 95 12/02/19 18:17 86 16 160/67 95 12/02/19 17:17 16 12/02/19 17:13 97.9 F 74 18 153/80 92 L Intake and Output 12/02/19 12/02/19 12/02/19 06:59 14:59 22:59 Other: Weight 90.718 kg General: [non toxic], [no distress], [appears at stated age], [wheelchair-bound] Derm: [warm], [dry] Head: [atraumatic], [normocephalic], [symmetric] Eyes: [EOMI], [no lid lag], [anicteric sclera], [decreased vision in the right eye] Mouth: [no lip lesion], [mucus membranes moist] Cardiovascular: [S1S2 reg], [no murmur], [positive DP pulse though faint], Lungs: [CTA bilateral], [no rhonchi, no rales] , [no accessory muscle use] Abdominal: [soft], [ nontender to palpation], [no guarding], [no appreciable organomegaly] Ext: [no gross muscle atrophy], [no edema], [no contractures], [necrotic fourth digit of the left foot distally] Neuro: [ CN II-XI grossly intact], [no focal neuro deficits] Psych: [Alert], [oriented], [appropriate affect] Results CBC & Chem 7: 12/02/19 18:15 12/02/19 18:15 Labs: Abnormal Lab Results - Last 24 Hours (Table) 12/02/19 12/02/19 Range/Units 18:15 18:15 WBC 12.3 H (3.8-10.6) k/uL Neutrophils # 9.5 H (1.3-7.7) k/uL Potassium 5.6 H (3.5-5.1) mmol/L BUN 44 H (9-20) mg/dL Glucose 101 H (74-99) mg/dL Calcium 10.7 H (8.4-10.2) mg/dL Alkaline Phosphatase 131 H (38-126) U/L Total Protein 8.4 H (6.3-8.2) g/dL Thrombosis Risk Factor Assmnt - Choose All That Apply Each Risk Factor Represents 3 Points: Age 75 years or older Thrombosis Risk Factor Assessment Total Risk Factor Score: 3 Thrombosis Risk Factor Assessment Level: Moderate Risk Assessment and Plan Assessment: Osteomyelitis of the left foot Leukocytosis Elevated BUN Hyperkalemia Hypothyroidism Hypertension Dyslipidemia Patient is diagnosed with osteomyelitis of the fourth and fifth digit in the left foot as seen on x-ray. He has been started on vancomycin and Rocephin IV. Blood cultures have been obtained and infectious disease will be consulted. His leukocytosis of 12.3 with neutrophilia is likely related to osteomyelitis of his left foot. We will repeat CBC tomorrow morning. Patient is noted to have an elevated BUN of 44. This is possibly related to dehydration. Patient is also on lisinopril and hydrochlorothiazide which will be continued at this time. He has been started on normal saline at 100 mL per hour. We will repeat BMP tomorrow morning. Patient is noted to have a potassium of 5.6 of unknown significance. EKG does not show any peaked T waves. He is also on lisinopril which could be the cause of mild hyperkalemia. Plan is to repeat BMP tomorrow morning. Home dose of Synthroid will be resumed for hypothyroidism. Lisinopril and hydrochlorothiazide will be resumed for hypertension. Lipitor and fenofibrate will be resumed for dyslipidemia. DVT prophylaxis: [Heparin] Discussed with: [Patient] Anticipated discharge: [1-2 days] Anticipated discharge place: [Home] A total of [45] minutes was spent on the care of this complex patient more than 50% of the time was spent in counseling and care coordination. Patient names his friend John Holbrook also his neighbor decision maker if he can't make decisions for himself. Patient would like to be no code.
[2019-12-02] MEDS: HYDROcodone/APAP 5-325MG 1 EACH TAB PO PRN (22:00)
[2019-12-02] MEDS: GABAPENTIN 300 MG CAP PO SCH (23:16)
[2019-12-02 23:32] LABS: Amorphous Sediment,Urine Rare /hpf; Appearance,Urine Cloudy (Clear); Bacteria,Urine Occasional /hpf; Bilirubin,Urine Negative (Negative); Blood,Urine Negative (Negative); Color,Urine Yellow; Glucose,Urine (UA) Negative (Negative); Ketones,Urine Negative (Negative); Leukocyte Esterase,Urine Moderate (Negative); Mucus,Urine Rare /hpf; Nitrite,Urine Negative (Negative); PH, Urine 6.5 (5.0-8.0); Protein,Urine 1+ (Negative); RBC,Urine 1 /hpf (0-5); Urobilinogen,Urine <2.0 mg/dL (<2.0); WBC,Urine 37 /hpf (0-5)
[2019-12-03] MEDS: HYDROcodone/APAP 5-325MG 1 EACH TAB PO PRN ×2 (05:13→20:28)
[2019-12-03] MEDS: LEVOTHYROXINE 75 MCG TAB PO SCH (06:03)
[2019-12-03] MEDS: HEPARIN SODIUM,PORCINE 5,000 UNIT/ML 1 ML VIAL SQ SCH ×2 (08:16→19:24)
[2019-12-03] MEDS: GABAPENTIN 300 MG CAP PO SCH ×2 (08:16→08:37)
[2019-12-03] MEDS: LISINOPRIL-HCTZ 20-25 MG 1 EACH TAB PO SCH (08:17)
[2019-12-03 08:18] LABS: African American GFR (CKD) >90 (>60 ml/min/1.73 sqM); Anion Gap 8 mmol/L; Blood Urea Nitrogen 37 mg/dL (9-20); Calcium 9.7 mg/dL (8.4-10.2); Carbon Dioxide 27 mmol/L (22-30); Chloride 103 mmol/L (98-107); Glucose 91 mg/dL (74-99); Non-African American GFR(CKD) 80 (>60 ml/min/1.73 sqM); Potassium 4.9 mmol/L (3.5-5.1); Sodium 138 mmol/L (137-145)
[2019-12-03 08:56] LABS: Basophils % (A) 0 %; Eosinophils # (A) 0.2 k/uL (0-0.7); Eosinophils % (A) 3 %; HGB 11.1 gm/dL (13.0-17.5); Lymphocytes # (A) 1.2 k/uL (1.0-4.8); Lymphocytes % (A) 16 %; MCH 28.7 pg (25.0-35.0); MCHC 32.6 g/dL (31.0-37.0); MCV 88.2 fL (80.0-100.0); Mean Platelet Volume 8.5; Monocytes # (A) 0.5 k/uL (0-1.0); Monocytes % (A) 7 %; Neutrophils # (A) 5.4 k/uL (1.3-7.7); Neutrophils % (A) 71 %; Platelet Count 173 k/uL (150-450); RBC 3.85 m/uL (4.30-5.90); RDW 14.6 % (11.5-15.5); WBC 7.6 k/uL (3.8-10.6)
[2019-12-03] MEDS ORDERED: FENOFIBRATE 160 MG TAB PO SCH ×2 (09:00)
[2019-12-03] MEDS ORDERED: ALLOPURINOL 100 MG TAB PO SCH (09:00)
[2019-12-03] MEDS: VANCOMYCIN 1,750 MG in SODIUM CHLORIDE 0.9% 500 ML 500 ML IVPB SCH ×2 (09:54→20:25)
--- NOTE | 2019-12-03 12:24 | P.PN ---
Subjective Progress Note Date: 12/03/19 Principal diagnosis: Left fourth toe discoloration Patient was seen and examined. No acute events overnight. Patient reports considerable improvement in his pain in the left lower extremity. He has no complaints at this time. Patient denies any chest pain, shortness of breath or palpitations. No nausea or vomiting. No fever or chills. Wanting to be discharged. Objective - Vital Signs Vital signs: Vital Signs Temp 97.6 F 12/03/19 11:44 Pulse 66 12/03/19 11:44 Resp 17 12/03/19 11:44 BP 151/65 12/03/19 11:44 Pulse Ox 96 12/03/19 11:44 Intake & Output 12/02/19 12/03/19 12/03/19 18:59 06:59 18:59 Intake Total 740 300 Output Total 750 150 Balance -10 150 Weight 90.718 kg 90.718 kg Intake: Intake, IV Titration 500 Amount Vancomycin 1,750 mg In 500 Sodium Chloride 0.9% 500 ml 500 ml @ 167 mls/hr IVPB Q12HR [facility] Rx#: [id number] Oral 240 300 Output: Urine 750 150 Other: Voiding Method Urinal Urinal # Voids 1 # Bowel Movements 1 - Exam General: [non toxic], [no distress], [appears at stated age], [wheelchair-bound] Derm: [warm], [dry] Head: [atraumatic], [normocephalic], [symmetric] Eyes: [EOMI], [no lid lag], [anicteric sclera], [decreased vision in the right eye] Mouth: [no lip lesion], [mucus membranes moist] Cardiovascular: [S1S2 reg], [no murmur], [positive DP pulse though faint], Lungs: [CTA bilateral], [no rhonchi, no rales] , [no accessory muscle use] Abdominal: [soft], [ nontender to palpation], [no guarding], [no appreciable organomegaly] Ext: [no gross muscle atrophy], [1+ bilateral lower extremity edema], [no contractures], [necrotic fourth digit of the left foot distally] Neuro: [no focal neuro deficits] Psych: [Alert], [oriented], [appropriate affect] - Labs CBC & Chem 7: 12/03/19 07:46 02/21/20 07:46 Labs: Abnormal Lab Results - Last 24 Hours (Table) 12/02/19 12/02/19 12/02/19 Range/Units 18:15 18:15 23:00 WBC 12.3 H (3.8-10.6) k/uL RBC (4.30-5.90) m/uL Hgb (13.0-17.5) gm/dL Hct (39.0-53.0) % Neutrophils # 9.5 H (1.3-7.7) k/uL Potassium 5.6 H (3.5-5.1) mmol/L BUN 44 H (9-20) mg/dL Glucose 101 H (74-99) mg/dL Calcium 10.7 H (8.4-10.2) mg/dL Alkaline Phosphatase 131 H (38-126) U/L Total Protein 8.4 H (6.3-8.2) g/dL Urine Protein 1+ H (Negative) Ur Leukocyte Esterase Moderate H (Negative) Urine WBC 37 H (0-5) /hpf Amorphous Sediment Rare H (None) /hpf Urine Bacteria Occasional H (None) /hpf Urine Mucus Rare H (None) /hpf 12/03/19 12/03/19 Range/Units 07:46 07:46 WBC (3.8-10.6) k/uL RBC 3.85 L (4.30-5.90) m/uL Hgb 11.1 L (13.0-17.5) gm/dL Hct 34.0 L (39.0-53.0) % Neutrophils # (1.3-7.7) k/uL Potassium (3.5-5.1) mmol/L BUN 37 H (9-20) mg/dL Glucose (74-99) mg/dL Calcium (8.4-10.2) mg/dL Alkaline Phosphatase (38-126) U/L Total Protein (6.3-8.2) g/dL Urine Protein (Negative) Ur Leukocyte Esterase (Negative) Urine WBC (0-5) /hpf Amorphous Sediment (None) /hpf Urine Bacteria (None) /hpf Urine Mucus (None) /hpf Assessment and Plan Assessment: Osteomyelitis of the left foot Elevated BUN Hypothyroidism Hypertension Dyslipidemia Patient is diagnosed with osteomyelitis of the fourth and fifth digit in the left foot as seen on x-ray. He has been started on vancomycin and Rocephin IV. Blood cultures have been obtained and infectious disease will be consulted. Case was discussed with Dr. Simpson, plans to consult podiatry for culture. Patient is noted to have an elevated BUN of 44-37. This is possibly related to dehydration. Patient is also on lisinopril and hydrochlorothiazide which will be continued at this time. We will discontinue IVF and encourage hydration by mouth. We will repeat BMP tomorrow morning. Home dose of Synthroid will be resumed for hypothyroidism. Lisinopril and hydrochlorothiazide will be resumed for hypertension. Lipitor and fenofibrate will be resumed for dyslipidemia. [Patient evaluated by ID. Recommends podiatry consultation for possible ingrown toenail. Doubtful for osteomyelitis. Patient is pending clinical improvement. Likely DC in 1-2 days.]
[2019-12-03] MEDS: ATORVASTATIN 20 MG TAB PO SCH (19:24)
[2019-12-04] MEDS: LEVOTHYROXINE 75 MCG TAB PO SCH (05:46)
[2019-12-04] MEDS: HEPARIN SODIUM,PORCINE 5,000 UNIT/ML 1 ML VIAL SQ SCH ×2 (06:51→20:04)
[2019-12-04] MEDS: LISINOPRIL-HCTZ 20-25 MG 1 EACH TAB PO SCH (06:51)
[2019-12-04] MEDS: VANCOMYCIN 1,750 MG in SODIUM CHLORIDE 0.9% 500 ML 500 ML IVPB SCH (08:46)
--- NOTE | 2019-12-04 10:39 | P.CONS ---
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 in this patient with chronic wheelchair-bound after his hip surgery patient be complaining of pain to his a left foot that has been getting worse over the last 1 week the patient denies any history of any trauma the fourth toe did notice to have some discoloration and describing the pain to be more of a throbbing in nature which can be as high as 7-8 out of 10 and no radiation patient denies any purulent drainage from the toe area, patient presented to hospital has been afebrile however he did have elevated white cell 12.3, the patient did have x- rays of the left foot which did show soft tissues are unremarkable. Swelling and also noticed to have a osteopenia laterally on the middle phalanx of the fourth toe with concern for possible osteomyelitis the patient was started on Rocephin and vancomycin admitted to hospital infectious he was consulted for further recommendation about antibiotic therapy Review of Systems Positive point has been mentioned HPI rest of the systems are negative Past Medical History Past Medical History: Hypertension, Pneumonia Additional Past Medical History / Comment(s): CURRENTLY NON WT BEARING, USING WHEELCHAIR, HX SKIN CA ON RIGHT SIDE OF FACE, RT EYE BLURRED VISION R/T SKIN CANCER TREATMENT ON FACE, UTI History of Any Multi-Drug Resistant Organisms: None Reported Past Surgical History: Cholecystectomy, Joint Replacement Additional Past Surgical History / Comment(s): 10/24/14 Total R hip arthroplasty. RT KNEE REPLACED X2,LT KNEE REPLACED Past Anesthesia/Blood Transfusion Reactions: No Reported Reaction Past Psychological History: No Psychological Hx Reported Additional Psychological History / Comment(s): Pt lives alone in a multilevel home. Pt has a friend that is availabel to help him with any of his needs. Pt states his biggest problem is getting in and out of bed. Pt and his friend are hoping tohave pt go to [facility] for post op rehab. Pt is mostly in a w/c or bed at this time. Pt has a power w/chair at home and a chairlift to go up the stairs. There is no bathroom on the first floor of [facility]. Pt did have [facility] coming into the home once a week foe personal care. Pt did not have a good experience with [facility] home care in the past. Smoking Status: Former smoker Past Alcohol Use History: None Reported Additional Past Alcohol Use History / Comment(s): STARTED SMOKING CIGARS 1964 QUIT SMOKING 1993 Past Drug Use History: None Reported - Past Family History Mother Family Medical History: Cancer Medications and Allergies Home Medications Medication Instructions Recorded Confirmed Type HYDROcodone/APAP 5-325MG [Thiells 1 tab PO BID PRN 06/24/19 12/02/19 History 5-325] Levothyroxine Sodium [Synthroid] 75 mcg PO DAILY 06/24/19 12/02/19 History Lisinopril-Hctz 20-25 mg 1 tab PO DAILY 06/24/19 12/02/19 History [Zestoretic 20-25] rOPINIRole HCL [Requip] 1 mg PO HS 06/24/19 12/02/19 History Allergies Allergy/AdvReac Type Severity Reaction Status Date / Time No Known Allergies Allergy Verified 12/02/19 21:29 Physical Exam Vitals: Vital Signs Temp Pulse Pulse Resp BP BP Pulse Ox 12/03/19 04:56 97.9 F 67 18 123/72 94 L 12/03/19 00:00 18 12/02/19 20:59 97.4 F L 90 18 158/70 95 12/02/19 18:17 86 16 160/67 95 12/02/19 17:17 16 12/02/19 17:13 97.9 F 74 18 153/80 92 L Intake and Output 12/02/19 12/03/19 12/03/19 22:59 06:59 14:59 Intake Total 620 120 300 Output Total 350 400 150 Balance 270 -280 150 Intake: Intake, IV Titration 500 Amount Vancomycin 1,750 mg In 500 Sodium Chloride 0.9% 500 ml 500 ml @ 167 mls/hr IVPB Q12HR [facility] Rx#: [id number] Oral 120 120 300 Output: Urine 350 400 150 Other: Voiding Method Urinal Urinal # Voids 1 # Bowel Movements 1 Weight 90.718 kg GENERAL DESCRIPTION: Elderly male up in the chair in no distress. No tachypnea or accessory muscle of respiration use. HEENT: Shows Pallor , no scleral icterus. Oral mucous membrane is dry. No pharyngeal erythema or thrush NECK: Trachea central, no thyromegaly. LUNGS: Unlabored breathing. Clear to auscultation anteriorly. No wheeze or crackle. HEART: S1, S2, regular rate and rhythm. No loud murmur ABDOMEN: Soft, no tenderness , guarding or rigidity, no organomegaly EXTREMITIES: Left foot fourth toe did have minimal swelling with possible ingrowing toenail and some irritation slightly tender no purulent drainage was noticed. SKIN: No rash, no masses palpable. NEUROLOGICAL: The patient is awake, alert, oriented x3, mood and affect normal. Results CBC & Chem 7: 12/03/19 07:46 12/03/19 07:46 Labs: Abnormal Lab Results - Last 24 Hours (Table) 12/02/19 12/02/19 12/02/19 Range/Units 18:15 18:15 23:00 WBC 12.3 H (3.8-10.6) k/uL RBC (4.30-5.90) m/uL Hgb (13.0-17.5) gm/dL Hct (39.0-53.0) % Neutrophils # 9.5 H (1.3-7.7) k/uL Potassium 5.6 H (3.5-5.1) mmol/L BUN 44 H (9-20) mg/dL Glucose 101 H (74-99) mg/dL Calcium 10.7 H (8.4-10.2) mg/dL Alkaline Phosphatase 131 H (38-126) U/L Total Protein 8.4 H (6.3-8.2) g/dL Urine Protein 1+ H (Negative) Ur Leukocyte Esterase Moderate H (Negative) Urine WBC 37 H (0-5) /hpf Amorphous Sediment Rare H (None) /hpf Urine Bacteria Occasional H (None) /hpf Urine Mucus Rare H (None) /hpf 12/03/19 12/03/19 Range/Units 07:46 07:46 WBC (3.8-10.6) k/uL RBC 3.85 L (4.30-5.90) m/uL Hgb 11.1 L (13.0-17.5) gm/dL Hct 34.0 L (39.0-53.0) % Neutrophils # (1.3-7.7) k/uL Potassium (3.5-5.1) mmol/L BUN 37 H (9-20) mg/dL Glucose (74-99) mg/dL Calcium (8.4-10.2) mg/dL Alkaline Phosphatase (38-126) U/L Total Protein (6.3-8.2) g/dL Urine Protein (Negative) Ur Leukocyte Esterase (Negative) Urine WBC (0-5) /hpf Amorphous Sediment (None) /hpf Urine Bacteria (None) /hpf Urine Mucus (None) /hpf Assessment and Plan Assessment: 1-patient presented to hospital with pain to his left foot especially the fourth toe which is swollen at the tip minimal erythema and slight discoloration with concern for possible ingrowing toenail with resultant hematoma underlying osteomyelitis not entirely excluded (1) Osteomyelitis of fourth toe of left foot Current Visit: Yes Status: Acute Code(s): M86.9 - OSTEOMYELITIS, UNSPECIFIED SNOMED Code(s): 281435684 Plan: 1-recommend podiatry evaluation for possible exploration of that area and deep cultures 2-we will check a sed rate and CRP 3-vancomycin pharmacy to dose target trough of 15 while watching his kidney function and vancomycin trough closely and Rocephin to continue Plan of care discussed with admitting physician We will follow on clinical condition and cultures to further adjust medication i f needed Thank you for this consultation will follow this patient along with you Time with Patient: Greater than 30
--- NOTE | 2019-12-04 13:03 | P.PN ---
Subjective Progress Note Date: 12/04/19 Principal diagnosis: Left fourth toe discoloration Patient was seen and examined. No acute events overnight. Patient reports no pain at this time.. Patient denies any chest pain, shortness of breath or palpitations. No nausea or vomiting. No fever or chills. Wanting to be discharged. Objective - Vital Signs Vital signs: Vital Signs Temp 98.2 F 12/04/19 12:08 Pulse 72 12/04/19 12:08 Resp 17 12/04/19 12:08 BP 174/70 12/04/19 12:08 Pulse Ox 97 12/04/19 12:08 Intake & Output 12/03/19 12/04/19 12/04/19 18:59 06:59 18:59 Intake Total 850 500 Output Total 350 150 Balance 500 350 Intake: Intake, IV Titration 550 500 Amount Vancomycin 1,750 mg In 500 500 Sodium Chloride 0.9% 500 ml 500 ml @ 167 mls/hr IVPB Q12HR [facility] Rx#: [id number] cefTRIAXone 1 gm In 50 Sodium Chloride 0.9% 50 ml @ 100 mls/hr IVPB Q12H [facility] Rx#:[id number] Oral 300 Output: Urine 350 150 Other: Voiding Method Urinal Urinal Urinal # Voids 2 1 # Bowel Movements 1 1 - Exam General: [non toxic], [no distress], [appears at stated age], [wheelchair-bound] Derm: [warm], [dry] Head: [atraumatic], [normocephalic], [symmetric] Eyes: [EOMI], [no lid lag], [anicteric sclera], [decreased vision in the right eye] Mouth: [no lip lesion], [mucus membranes moist] Cardiovascular: [S1S2 reg], [no murmur], [positive DP pulse though faint], Lungs: [CTA bilateral], [no rhonchi, no rales] , [no accessory muscle use] Abdominal: [soft], [ nontender to palpation], [no guarding], [no appreciable organomegaly] Ext: [no gross muscle atrophy], [1+ bilateral lower extremity edema], [no contractures], [necrotic fourth digit of the left foot distally] Neuro: [no focal neuro deficits] Psych: [Alert], [oriented], [appropriate affect] - Labs CBC & Chem 7: 12/03/19 07:46 12/03/19 07:46 Labs: Microbiology - Last 24 Hours (Table) 12/02/19 18:15 Blood Culture - Preliminary Blood No Growth after 24 hours 12/02/19 23:00 Urine Culture - Preliminary Urine,Voided Assessment and Plan Assessment: Osteomyelitis of the left foot Elevated BUN Hypothyroidism Hypertension Dyslipidemia Patient is diagnosed with osteomyelitis of the fourth and fifth digit in the left foot as seen on x-ray. He has been started on vancomycin and Rocephin IV. Blood cultures have been obtained and infectious disease will be consulted. Case was discussed with Dr. Simpson, plans to consult podiatry for culture. Follow podiatry recommendations. Patient is noted to have an elevated BUN of 44-37. This is possibly related to dehydration. Patient is also on lisinopril and hydrochlorothiazide which will be continued at this time. We will discontinue IVF and encourage hydration by mouth. We will repeat BMP tomorrow morning. Home dose of Synthroid will be resumed for hypothyroidism. Lisinopril and hydrochlorothiazide will be resumed for hypertension. Lipitor and fenofibrate will be resumed for dyslipidemia. [Patient evaluated by ID. Recommends podiatry consultation for possible deep culture. Continue IV antibiotics. Patient is pending clinical improvement. Likely DC in 1-2 days.]
--- NOTE | 2019-12-04 16:37 | PN ---
PROGRESS NOTE DATE OF SERVICE: 12/04/2019 REASON FOR FOLLOWUP: Left fourth toe infection and a question of osteomyelitis. INTERVAL HISTORY: The patient is currently afebrile. The patient is breathing comfortably. Still complaining of pain to the left fourth toe area. Denies any chest pain or cough. No abdominal pain or diarrhea. PHYSICAL EXAMINATION: Blood pressure 174/70 with a pulse of 70, temperature 98.2. He is 97% on room air. General description is an elderly male up in the bed in no distress. RESPIRATORY SYSTEM: Unlabored breathing. Clear to auscultation anteriorly. HEART: S1, S2. Regular rate and rhythm. ABDOMEN: Soft. No tenderness. Left fourth toe is still swollen and red. No drainage. LABS: Hemoglobin 11.1, white count 7.6, BUN of 37, creatinine 0.87. Blood culture negative. No local culture has been done. DIAGNOSTIC IMPRESSION AND PLAN: Patient with a left fourth toe infection with concern about possible osteomyelitis. has been ordered for possible debridement and deep cultures. Continue with the vancomycin and Rocephin. If no , will get Dr. Bass to see the patient. Continue with supportive care. MMODL / IJN: [id number] /
[2019-12-04] MEDS ORDERED: VANCOMYCIN TROUGH DUE 1 EACH MISC MISCELLANE ONE (20:00)
[2019-12-04] MEDS: HYDROcodone/APAP 5-325MG 1 EACH TAB PO PRN (20:03)
[2019-12-04] MEDS: ATORVASTATIN 20 MG TAB PO SCH (20:03)
[2019-12-05] MEDS: HYDROcodone/APAP 5-325MG 1 EACH TAB PO PRN ×2 (05:33→11:29)
[2019-12-05] MEDS: VANCOMYCIN 1,500 MG in SODIUM CHLORIDE 0.9% 250 ML IVPB SCH ×2 (05:34→17:35)
[2019-12-05] MEDS: LEVOTHYROXINE 75 MCG TAB PO SCH (05:34)
[2019-12-05] MEDS ORDERED: LIDOCAINE 1% INJ 10MG/ML (20 ML MDV) SQ ONE (06:30)
[2019-12-05 07:53] LABS: African American GFR (CKD) >90 (>60 ml/min/1.73 sqM); Anion Gap 8 mmol/L; Blood Urea Nitrogen 26 mg/dL (9-20); C Reactive Protein 39.1 mg/L (<10.0); Calcium 9.7 mg/dL (8.4-10.2); Carbon Dioxide 27 mmol/L (22-30); Chloride 101 mmol/L (98-107); Glucose 82 mg/dL (74-99); Non-African American GFR(CKD) 81 (>60 ml/min/1.73 sqM); Potassium 4.6 mmol/L (3.5-5.1); Sodium 136 mmol/L (137-145)
[2019-12-05] MEDS: LISINOPRIL-HCTZ 20-25 MG 1 EACH TAB PO SCH (08:36)
[2019-12-05] MEDS: HEPARIN SODIUM,PORCINE 5,000 UNIT/ML 1 ML VIAL SQ SCH ×2 (08:36→21:05)
[2019-12-05] MEDS: MORPHINE SULFATE 2 MG/ML SYRINGE IV PRN ×2 (10:31→21:05)
--- NOTE | 2019-12-05 11:41 | PCN ---
PROCEDURE NOTE PREOP DIAGNOSIS: Left foot hammertoe with cellulitis and devitalized tissue present to the nail of the bed of left foot second toe. PROCEDURE PERFORMED: Debridement of the wound and the deep culture. DESCRIPTION OF PROCEDURE: This patient was seen in the room. Left foot was prepped and drapes applied in a sterile manner. 1% lidocaine plain infiltrated. This patient had trauma to his left foot second toe. There was some devitalized tissue noted. Using sharp knife, we did the superficial debridement. The devitalized tissue was removed which was sent for culture and sensitivity. Medihoney gel was applied to the wound. PLAN: Use Medihoney gel daily and patient to be seen by Infectious Disease for IV antibiotic. MMODL / IJN: [id number] /
--- NOTE | 2019-12-05 11:41 | CONS ---
DATE OF CONSULTATION: 12/05/2019 This is an 84-year-old gentleman who has been admitted with left foot second toe infected nail bed with some cellulitis. The patient has a history of trauma to the left foot second toe. The patient was seen by Infectious Disease. I was consulted for debridement and deep tissue biopsy. PAST MEDICAL HISTORY: No history of diabetes. PHYSICAL EXAMINATION: Patient was seen in his room, lying comfortably in bed. NECK: Supple. Trachea central. CHEST: Clear. ABDOMEN: Soft. Femorals are 1+. Left foot second toe has a hammertoe and there is a trauma to the nail bed with some devitalized tissue. The patient is on IV antibiotics. PLAN: Debridement and deep wound culture. MMODL / IJN: [id number] / HELEN
--- NOTE | 2019-12-05 13:26 | P.PN ---
Subjective Progress Note Date: 12/05/19 Principal diagnosis: Left fourth toe discoloration Patient was seen and examined. No acute events overnight. Underwent debridement and deep bone culture this morning under Dr. Bass vascular surgery. Patient reports discomfort in his foot post procedure. Pain is currently well controlled with [place]. He denies any chest pain, shortness of breath or palpitations. No nausea or vomiting. No fever or chills. Objective - Vital Signs Vital signs: Vital Signs Temp 99 F 12/05/19 11:54 Pulse 74 12/05/19 11:54 Resp 17 12/05/19 11:54 BP 169/68 12/05/19 11:54 Pulse Ox 94 L 12/05/19 11:54 Intake & Output 12/04/19 12/05/19 12/05/19 18:59 06:59 18:59 Intake Total 1880 50 Output Total 350 Balance 1880 -300 Intake: Intake, IV Titration 50 Amount cefTRIAXone 1 gm In 50 Sodium Chloride 0.9% 50 ml @ 100 mls/hr IVPB Q12H [facility] Rx#:[id number] Oral 1880 Output: Urine 350 Other: Voiding Method Urinal Urinal Urinal # Voids 1 1 # Bowel Movements 1 - Exam General: [non toxic], [no distress], [appears at stated age], [wheelchair-bound] Derm: [warm], [dry] Head: [atraumatic], [normocephalic], [symmetric] Eyes: [EOMI], [no lid lag], [anicteric sclera], [decreased vision in the right eye] Mouth: [no lip lesion], [mucus membranes moist] Cardiovascular: [S1S2 reg], [no murmur], [positive DP pulse though faint], Lungs: [CTA bilateral], [no rhonchi, no rales] , [no accessory muscle use] Abdominal: [soft], [ nontender to palpation], [no guarding], [no appreciable organomegaly] Ext: [no gross muscle atrophy], [1+ bilateral lower extremity edema], [no contractures], [fourth digit wrapped with dressings clean dry and intact] Neuro: [no focal neuro deficits] Psych: [Alert], [oriented], [appropriate affect] - Labs CBC & Chem 7: 12/03/19 07:46 12/05/19 06:16 Labs: Abnormal Lab Results - Last 24 Hours (Table) 12/05/19 12/05/19 Range/Units 06:16 06:16 ESR 72 H (0-15) mm/hr Sodium 136 L (137-145) mmol/L BUN 26 H (9-20) mg/dL C-Reactive Protein 39.1 H (<10.0) mg/L Microbiology - Last 24 Hours (Table) 12/02/19 18:15 Blood Culture - Preliminary Blood No Growth after 48 hours 12/02/19 23:00 Urine Culture - Final Urine,Voided Assessment and Plan Assessment: Osteomyelitis of the left foot Elevated BUN Hypothyroidism Hypertension Dyslipidemia Patient is diagnosed with osteomyelitis of the fourth and fifth digit in the left foot as seen on x-ray. CRP is elevated. He has been started on vancomycin and Rocephin IV. Blood cultures have been obtained and infectious disease has been consulted. Vascular surgery was able to do wound debridement and obtain a deep bone culture. We'll follow the results of this bone culture to tailor antibiotics for this patient. Discussed with ID Dr. Simpson, will consider bone scan as well. ESR has been ordered. Patient is noted to have an elevated BUN of 44-37-26. This is possibly related to dehydration. Patient is also on lisinopril and hydrochlorothiazide which will be continued at this time. We will discontinue IVF and encourage hydration by mouth. Home dose of Synthroid will be resumed for hypothyroidism. Lisinopril and hydrochlorothiazide will be resumed for hypertension. Lipitor and fenofibrate will be resumed for dyslipidemia. [Patient evaluated by ID. Deep bone culture obtained with vascular surgery. Continue IV antibiotics pending cultures. Patient is pending clinical improvement. Likely DC in 1-2 days.]
--- NOTE | 2019-12-05 17:12 | PN ---
PROGRESS NOTE DATE OF SERVICE: 12/05/19. REASON FOR FOLLOW UP: Left 4th toe wound cellulitis and question of osteomyelitis. INTERVAL HISTORY: The patient was seen this morning by vascular surgery Dr. Bass. The patient did have debridement of the wound and deep cultures with no evidence of any osteo. The patient complaining of pain to the foot area at this point. Denies having any chest pain, shortness of breath, cough, abdominal pain and no diarrhea. PHYSICAL EXAMINATION: Blood pressure 115/50 with a pulse of 94, temperature 99. He is 94% on room air. General description is an elderly male lying in bed in no distress. Respiratory system: Unlabored breathing, clear to auscultation anteriorly. Heart S1, S2. Regular rate and rhythm. ABDOMEN: Soft, no tenderness. Left foot is currently dressed up. No obvious drainage on the dressing. LABS: Sedimentation rate of 72 with a CRP of . DIAGNOSTIC IMPRESSION/PLAN: Patient with left fourth toe deep wound with concern with x-ray suspicious for osteomyelitis in this patient who is status post debridement of the wound and deep cultures with elevated sedimentation rate and CRP, possible osteomyelitis. We will obtain a bone scan 3 phase, if there is evidence of osteomyelitis, he will need a PICC line and antibiotic depending upon the culture report. Continue supportive care. Plan of care was discussed with the admitting physician. MMODL / IJN: [id number] /
[2019-12-05] MEDS: ATORVASTATIN 20 MG TAB PO SCH (21:05)
[2019-12-06] MEDS: LEVOTHYROXINE 75 MCG TAB PO SCH (05:02)
[2019-12-06] MEDS: VANCOMYCIN 1,500 MG in SODIUM CHLORIDE 0.9% 250 ML IVPB SCH ×2 (05:05→18:36)
[2019-12-06] MEDS: HYDROcodone/APAP 5-325MG 1 EACH TAB PO PRN ×2 (05:10→20:38)
[2019-12-06] MEDS: LISINOPRIL-HCTZ 20-25 MG 1 EACH TAB PO SCH (08:32)
[2019-12-06] MEDS: HEPARIN SODIUM,PORCINE 5,000 UNIT/ML 1 ML VIAL SQ SCH ×2 (08:32→20:39)
--- NOTE | 2019-12-06 10:04 | P.PN ---
Subjective Chart was reviewed patient was seen and examined no new events overnight. Objective - Vital Signs Vital signs: Vital Signs Temp 97.8 F 12/06/19 05:00 Pulse 65 12/06/19 05:00 Resp 17 12/05/19 21:00 BP 158/55 12/06/19 05:00 Pulse Ox 94 L 12/06/19 05:00 Intake & Output 12/05/19 12/06/19 12/06/19 18:59 06:59 18:59 Intake Total 1450 250 Output Total 300 550 Balance 1150 -300 Intake: Intake, IV Titration 300 250 Amount Vancomycin 1,500 mg In 250 250 Sodium Chloride 0.9% 250 ml @ 125 mls/hr IVPB Q12H TATE Rx#:[id number] cefTRIAXone 1 gm In 50 Sodium Chloride 0.9% 50 ml @ 100 mls/hr IVPB Q12H TATE Rx#:[id number] Oral 1150 Output: Urine 300 550 Other: Voiding Method Urinal Urinal # Voids 2 - Exam Vital Signs: I have reviewed the vital signs. GENERAL: No acute distress Eyes: PERRL, extraoculry movements intact, clear conjunctiva Head: : Atraumatic external nose and ears, oropharyngeal mucosa is moist without lesions or exudates Neck: Symmetric, trachea midline, No thyromegaly, no masses or neck vain pulsation, no neck rigidity CVS: +S1/S2, No murmurs or gallops. Peripheral pulses 2+ and equal in all extremities. RESP: Unlabored respiratory effort. Clear to auscultation bilaterally. Abdomen: Bowel sounds present in all 4 quadrants, Soft to palpation, Nontender/Nondistended, No hepatosplenomegaly, no hernias or masses, no CVA tnderness - Labs CBC & Chem 7: 12/03/19 07:46 12/05/19 06:16 Labs: Microbiology - Last 24 Hours (Table) 12/05/19 10:11 Gram Stain - Preliminary Toe - Left Fourth Wound Culture - Preliminary 12/02/19 18:15 Blood Culture - Preliminary Blood No Growth after 72 hours 12/05/19 10:11 Anaerobic Culture - Preliminary Toe - Left Fourth Assessment and Plan Assessment: 1. Osteomyelitis third and fourth digits of the left foot Status post surgical department Wound culture growing gram-positive bacilli Currently on vancomycin/ceftriaxone Continue per infectious disease recommendations Check A1c 2. Acute on chronic debility Physical occupational therapy Plans for placement 3. Hypertension his blood pressure stable Continue present medications 4. Hypothyroidism Continue levothyroxine
--- NOTE | 2019-12-06 15:37 | NM ---
EXAMINATION TYPE: NM bone 3 phase DATE OF EXAM: 12/06/2019 COMPARISON: Left foot dated 12/02/2019 HISTORY: Pain, fourth toe wound Triple phase bone scintigraphy was performed following the injection of 26.3 mCi Tc 99m MDP. Immedia te images and 5 hours post injection images acquired. FINDINGS: There is increased blood flow, blood pool activity present to the left foot and ankle, immediate acti vity noted at the level of the fourth digit, delayed imaging does not show more localized uptake wiley imtiaz. Of note the patient was noncompliant with the exam however. IMPRESSION: Findings compatible with cellulitis. Difficult to exclude osteomyelitis as the patient moved during t he exam.
[2019-12-06] MEDS: ATORVASTATIN 20 MG TAB PO SCH (20:39)
--- NOTE | 2019-12-07 05:21 | PN ---
PROGRESS NOTE DATE OF SERVICE: 12/06/2019 REASON FOR FOLLOWUP: Left fourth toe wound. INTERVAL HISTORY: The patient is currently afebrile, has been breathing comfortably. Denies having any chest pain or shortness of breath or cough, still have some pain to the left fourth toe but no worsening. PHYSICAL EXAMINATION: Blood pressure is 146/69 with a pulse of 69, temperature 97.8. He is 96% on room air. General description is an elderly male up in the chair in no distress. RESPIRATORY SYSTEM: Unlabored breathing, clear to auscultation anteriorly. HEART: S1, S2. Regular rate and rhythm. ABDOMEN: Soft, no tenderness. Left fourth toe swelling, redness slightly decreased, no drainage. LABS: Wound cultures currently pending. Bone scan was inconclusive. DIAGNOSTIC IMPRESSION AND PLAN: Patient with left fourth toe cellulitis clinically not behaving as an osteomyelitis and there was no evidence of any deep extension at time of debridement by the Vascular Surgery. We will keep the patient on Rocephin and vancomycin while waiting for the culture to finalize to determine discharge antibiotics. Continue supportive care. MMODL / IJN: [id number] /
[2019-12-07] MEDS: VANCOMYCIN 1,500 MG in SODIUM CHLORIDE 0.9% 250 ML IVPB SCH (05:40)
[2019-12-07] MEDS: LEVOTHYROXINE 75 MCG TAB PO SCH (05:40)
[2019-12-07] MEDS: HEPARIN SODIUM,PORCINE 5,000 UNIT/ML 1 ML VIAL SQ SCH (08:07)
[2019-12-07] MEDS: LISINOPRIL-HCTZ 20-25 MG 1 EACH TAB PO SCH (08:07)
[2019-12-07 08:39] LABS: African American GFR (CKD) >90 (>60 ml/min/1.73 sqM); Non-African American GFR(CKD) 79 (>60 ml/min/1.73 sqM)
--- NOTE | 2019-12-07 09:14 | P.PN ---
Subjective Patient is up in the chair quite comfortable. He reports to be at his baseline without chest pain shortness of breath or any significant pain. He reports that he is diet has been decent. Objective - Vital Signs Vital signs: Vital Signs Temp 98.4 F 12/07/19 07:48 Pulse 65 12/07/19 07:48 Resp 24 12/07/19 07:48 BP 149/65 12/07/19 07:48 Pulse Ox 94 L 12/07/19 07:48 Intake & Output 12/06/19 12/07/19 12/07/19 18:59 06:59 18:59 Intake Total 540 300 240 Output Total 600 Balance 540 -300 240 Intake: Intake, IV Titration 300 300 Amount Vancomycin 1,500 mg In 250 250 Sodium Chloride 0.9% 250 ml @ 125 mls/hr IVPB Q12H TATE Rx#:[id number] cefTRIAXone 1 gm In 50 50 Sodium Chloride 0.9% 50 ml @ 100 mls/hr IVPB Q12H TATE Rx#:[id number] Oral 240 240 Output: Urine 600 Other: Voiding Method Urinal # Voids 3 - Exam Vital Signs: I have reviewed the vital signs. GENERAL: No acute distress Eyes: PERRL, extraoculry movements intact, clear conjunctiva Head: : Atraumatic external nose and ears, oropharyngeal mucosa is moist without lesions or exudates Neck: Symmetric, trachea midline, No thyromegaly, no masses or neck vain pulsation, no neck rigidity CVS: +S1/S2, 2/6 aortic ejection murmur . Peripheral pulses 2+ and equal in all extremities. RESP: Unlabored respiratory effort. Clear to auscultation bilaterally. Abdomen: Bowel sounds present in all 4 quadrants, Soft to palpation, Nontender/Nondistended, No hepatosplenomegaly, no hernias or masses, no CVA tnderness - Labs CBC & Chem 7: 12/03/19 07:46 12/07/19 07:46 Labs: Microbiology - Last 24 Hours (Table) 12/05/19 10:11 Gram Stain - Final Toe - Left Fourth Wound Culture - Final 12/02/19 18:15 Blood Culture - Preliminary Blood No Growth after 96 hours Assessment and Plan Assessment: 1. Cellulitis fourth and fifth toe of the left foot Status post surgical department Surgical wound exploration and triple phase bone scan were not suggestive of osteomyelitis Wound culture growing gram-positive bacilli Currently on vancomycin/ceftriaxone day #6 Continue per infectious disease recommendations Check A1c He seems to have decent pulses in lower extremities and no history of claudications but may consider vascular evaluation on outpatient basis 2. Acute on chronic debility Physical occupational therapy Plans for placement in intermediate facility 3. Hypertension blood pressure stable Continue present medications 4. Hypothyroidism Continue levothyroxine Disposition: Once wound culture finalized and infectious disease recommends final antibiotics and cleared for discharge patient will be discharged to intermediate facility, possibly in 1-2 days
[2019-12-07 16:02] VITALS: PULSE 70; RESP 16
[2019-12-07 16:06] VITALS: BP 159/66; TEMP 98.1
--- NOTE | 2019-12-07 16:32 | PN ---
PROGRESS NOTE DATE OF SERVICE: 12/07/2019 REASON FOR FOLLOWUP: Left fourth toe wound and cellulitis. INTERVAL HISTORY: The patient is currently afebrile, has been breathing comfortably. The patient denies having any chest pain or shortness of breath or cough. Pain to the left foot is currently controlled. No nausea, no vomiting. No abdominal pain or any diarrhea. PHYSICAL EXAMINATION: Blood pressure 156/67 with a pulse of 72, temperature 97.9. He is 96% on room air. General description is an elderly male up in the chair in no distress. RESPIRATORY SYSTEM: Unlabored breathing. Clear to auscultation anteriorly. HEART: S1, S2. Regular rate and rhythm. ABDOMEN: Soft. No tenderness. Left foot is currently dressed up. No obvious drainage on the dressing. LABS: Creatinine 0.89. Wound culture currently pending. DIAGNOSTIC IMPRESSION AND PLAN: Patient with a left fourth toe wound with secondary cellulitis, status post debridement. Clinically doubt osteomyelitis. Patient is covered with Rocephin and vancomycin while waiting for the culture to finalize to determine his discharge antibiotics, more likely oral. Continue with supportive care. MMODL / IJN: [id number] /
--- NOTE | 2019-12-07 17:15 | P.DS ---
Providers Date of admission: 12/02/19 19:18 Attending physician: Alcira Springer MD Consults: 12/02/19 21:05 Consult Physician Routine Consulting Provider: Yesi Simpson Consult Reason/Comments: osteo Do you want consulting provider notified?: Yes 12/04/19 15:26 Consult Physician Routine Consulting Provider: Hemanth Bass Consult Reason/Comments: left 4th toe wound, debridment and deep cultures Do you want consulting provider notified?: Yes Primary care physician: Stated None Hospital Course: Date of discharge: 12/07/2019 Reason for admission: Left foot pain and swelling Discharge diagnosis: #Cellulitis of the fourth and fifth toe of the left foot Secondary diagnoses: #Hypertension # debility # hypothyroidism Consultants: Dr. Simpson infectious disease Dr Bass vascular surgery Procedures: Debridement of the wound and deep culture with vascular surgery on 12/05/2019 Debridement was not suggestive of osteomyelitis Studies: Left x-ray on admission, soft tissue swelling involving the fourth toe and to the slight or lesser degree the fifth toe, findings suspicious for stimulated Triple phase bone scan showed cellulitis no findings suggestive of osteomyelitis Wound Cultures: No growth to date History of present illness and hospital course This is a 84-year-old male who came to emergency department for evaluation of the left foot pain and swelling that started 1 week prior. Patient believed that he possibly injured to food and then swelling and progressively worsening pain occurred. There is no any fever chills nausea or vomiting. In emergency department he was found to have elevated CRP. X-ray showed above findings that he is admitted for ablation for osteomyelitis Patient was started on vancomycin/ceftriaxone that he received a total of 6 days of these antibiotics. He was evaluated by above consultants. He underwent debridement with deep tissue cultures. The procedure did not reveal any deep infection or osteomyelitis. Triple phase bone scan was negative for osteomyelitis. Deep wound cultures did not grow any particular organism. In view of that infectious disease advised patient to be switched to Keflex 500 mg 3 times a day for 10 days and to be discharged home. Patient will be discharged to his previous home situation. We will arrange for home care wound care due to patient's reduce mobility and home bound situation. He does not have stable primary care physician follow-up and we will try to obtain these to case management. He was recommended to follow-up in infectious disease in 1 week and vascular surgery in 1 week. Total of 45 minutes spent on this discharge Patient Condition at Discharge: Fair Plan - Discharge Summary Discharge Rx Participant: No New Discharge Prescriptions: New Cephalexin [Keflex] 500 mg PO TID 10 Days #30 cap Continue rOPINIRole HCL [Requip] 1 mg PO HS Lisinopril-Hctz 20-25 mg [Zestoretic 20-25] 1 tab PO DAILY Levothyroxine Sodium [Synthroid] 75 mcg PO DAILY HYDROcodone/APAP 5-325MG [Henley 5-325] 1 tab PO BID PRN PRN Reason: Pain Discharge Medication List HYDROcodone/APAP 5-325MG [Henley 5-325] 1 tab PO BID PRN 06/24/19 [History] Levothyroxine Sodium [Synthroid] 75 mcg PO DAILY 06/24/19 [History] Lisinopril-Hctz 20-25 mg [Zestoretic 20-25] 1 tab PO DAILY 06/24/19 [History] rOPINIRole HCL [Requip] 1 mg PO HS 06/24/19 [History] Cephalexin [Keflex] 500 mg PO TID 10 Days #30 cap 12/07/19 [Rx] Follow up Appointment(s)/Referral(s): None,Stated [Primary Care Provider] - 1-2 days (Patient instructed to make follow-up appointment with primary care physician in 1-2 days) [facility]Center [NON-STAFF] - 1 Week Hemanth Bass MD [STAFF PHYSICIAN] - 1 Week Yesi Simpson MD [STAFF PHYSICIAN] - 1 Week (Patient instructed to make follow- up appointment with Dr. Simpson in one week) Patient Instructions/Handouts: Cephalexin (By mouth), Cellulitis (DC) Activity/Diet/Wound Care/Special Instructions: Left foot 4th toe - apply Therahoney daily and then apply a wet to dry dressing x one week Discharge Disposition: OTHER INSTITUTION NOT DEFINED Plan of Treatment: Wound care please see your PCP and vasc surgery as indicated for the wound care evaluation
[2019-12-08] MEDS ORDERED: VANCOMYCIN TROUGH DUE 1 EACH MISC MISCELLANE ONE (05:00)
--- NOTE | 2019-12-08 11:10 | CDI ---
Documentation Clarification Form Date: 12/08/2019 11:03:00 AM From: Samira Blood RN, CCDS Admit Date: 12/02/2019 07:18:00 PM Patient Name: Dima Gibbs Visit Number: [id number] Discharge Date: 12/07/2019 05:30:00 AM ATTENTION: The Clinical Documentation Specialists (CDI) and [facility] Coding Staff appreciate your assistance in clarifying documentation. Please respond to the clarification below the line at the bottom and electronically sign. The CDI & [facility] Coding staff will review the response and follow-up if needed. Please note: Queries are made part of the Legal Health Record. If you have any questions, please contact the author of this message via ITS. Dr. Hemanth Bass Per your progress notes/operative note, a debridement was performed on 12/05/19 History/Risk Factors: HTN Clinical Indicators: 12/05 Procedure note: "This patient had trauma to his left foot second toe. There was some devitalized tissue noted. Using sharp knife, we did the superficial debridement. The devitalized tissue was removed which was sent for culture and sensitivity. Medihoney gel was applied to the wound. Treatment: Debridement of wound and deep culture Medihoney dressing changes IV Ceftriaxone 1gm IVPB Q 12 hrs IV Vanco PTD Five elements required for accurate and compliant documentation of a debridement: 1. Technique used (e.g., excisional, excised, cutting, etc.) 2. Instrument(s) used (e.g., scalpel, curette, etc.) 3. Nature of the tissue removed (e.g., necrotic, devitalized tissues, non- viable tissue, etc.) 4. Appearance and size of the wound (e.g., down to fresh bleeding tissue, 7cm x 10cm, etc.) 5. Depth of the debridement* (e.g., skin, subcutaneous tissue, fascia, muscle, bone, etc.) In order to capture the severity of condition and code the appropriate procedure; could you please document the following: Excisional debridement (the removal of necrotic, devitalized tissue or slough by means of cutting away of tissue) Non-excisional debridement (the removal of necrotic, devitalized tissue or slough by means of flushing, brushing, or washing. (Irrigation) Other; please specify Unable to determine (Last Revision: January 2018) MTDD
--- NOTE | 2019-12-13 13:05 | CDI ---
Documentation Clarification Form 2nd request Date: 12/08/2019 11:03:00 AM From: Samira Blood RN, CCDS Admit Date: 12/02/2019 07:18:00 PM Patient Name: Dima Gibbs Visit Number: [id number] Discharge Date: 12/07/2019 05:30:00 AM ATTENTION: The Clinical Documentation Specialists (CDI) and [facility] Coding Staff appreciate your assistance in clarifying documentation. Please respond to the clarification below the line at the bottom and electronically sign. The CDI & [facility] Coding staff will review the response and follow-up if needed. Please note: Queries are made part of the Legal Health Record. If you have any questions, please contact the author of this message via ITS. Dr. Hemanth Bass Per your progress notes/operative note, a debridement was performed on 12/05/19 History/Risk Factors: HTN Clinical Indicators: 12/05 Procedure note: "This patient had trauma to his left foot second toe. There was some devitalized tissue noted. Using sharp knife, we did the superficial debridement. The devitalized tissue was removed which was sent for culture and sensitivity. Medihoney gel was applied to the wound. Treatment: Debridement of wound and deep culture Medihoney dressing changes IV Ceftriaxone 1gm IVPB Q 12 hrs IV Vanco PTD Five elements required for accurate and compliant documentation of a debridement: 1. Technique used (e.g., excisional, excised, cutting, etc.) 2. Instrument(s) used (e.g., scalpel, curette, etc.) 3. Nature of the tissue removed (e.g., necrotic, devitalized tissues, non- viable tissue, etc.) 4. Appearance and size of the wound (e.g., down to fresh bleeding tissue, 7cm x 10cm, etc.) 5. Depth of the debridement* (e.g., skin, subcutaneous tissue, fascia, muscle, bone, etc.) In order to capture the severity of condition and code the appropriate procedure; could you please document the following: Excisional debridement (the removal of necrotic, devitalized tissue or slough by means of cutting away of tissue) Non-excisional debridement (the removal of necrotic, devitalized tissue or slough by means of flushing, brushing, or washing. (Irrigation) Other; please specify Unable to determine (Last Revision: January 2018) MTDD
--- NOTE | 2019-12-16 10:20 | CDI ---
Documentation Clarification Form 3rd Request Date: 12/08/2019 11:03:00 AM From: Samira Blood RN, CCDS Admit Date: 12/02/2019 07:18:00 PM Patient Name: Dima Gibbs Visit Number: [id number] Discharge Date: 12/07/2019 05:30:00 AM ATTENTION: The Clinical Documentation Specialists (CDI) and [facility] Coding Staff appreciate your assistance in clarifying documentation. Please respond to the clarification below the line at the bottom and electronically sign. The CDI & [facility] Coding staff will review the response and follow-up if needed. Please note: Queries are made part of the Legal Health Record. If you have any questions, please contact the author of this message via ITS. Dr. Hemanth Bass Per your progress notes/operative note, a debridement was performed on 12/05/19 History/Risk Factors: HTN Clinical Indicators: 12/05 Procedure note: "This patient had trauma to his left foot second toe. There was some devitalized tissue noted. Using sharp knife, we did the superficial debridement. The devitalized tissue was removed which was sent for culture and sensitivity. Medihoney gel was applied to the wound. Treatment: Debridement of wound and deep culture Medihoney dressing changes IV Ceftriaxone 1gm IVPB Q 12 hrs IV Vanco PTD Five elements required for accurate and compliant documentation of a debridement: 1. Technique used (e.g., excisional, excised, cutting, etc.) 2. Instrument(s) used (e.g., scalpel, curette, etc.) 3. Nature of the tissue removed (e.g., necrotic, devitalized tissues, non- viable tissue, etc.) 4. Appearance and size of the wound (e.g., down to fresh bleeding tissue, 7cm x 10cm, etc.) 5. Depth of the debridement* (e.g., skin, subcutaneous tissue, fascia, muscle, bone, etc.) In order to capture the severity of condition and code the appropriate procedure; could you please document the following: Excisional debridement (the removal of necrotic, devitalized tissue or slough by means of cutting away of tissue) Non-excisional debridement (the removal of necrotic, devitalized tissue or slough by means of flushing, brushing, or washing. (Irrigation) Other; please specify Unable to determine (Last Revision: January 2018) Excisional debridement MTDD
== END 2019-12-07 05:30 | disposition home health service (06) | DRG 603 ==
LOC: EC 17:09 → 5NMEDONC 19:18
PROVIDERS: ADMIT Family Medicine; ATTEND Family Medicine
PROC: 0HBNXZZ Excision of Left Foot Skin, External Approach (ICD-10-PCS; principal; 2019-12-05)
PROC: 0HBRXZZ Excision of Toe Nail, External Approach (ICD-10-PCS; principal; 2019-12-05)
DX: L03.032 Cellulitis of left toe (principal); M20.42 Other hammer toe(s) (acquired), left foot; E03.9 Hypothyroidism, unspecified; E78.5 Hyperlipidemia, unspecified; E87.5 Hyperkalemia; I10 Essential (primary) hypertension; I44.0 Atrioventricular block, first degree; I45.10 Unspecified right bundle-branch block; M85.80 Other specified disorders of bone density and structure, unspecified site; Z79.890 Hormone replacement therapy; Z85.828 Personal history of other malignant neoplasm of skin; Z87.891 Personal history of nicotine dependence; Z96.641 Presence of right artificial hip joint; Z99.3 Dependence on wheelchair; Z96.653 Presence of artificial knee joint, bilateral; Z60.2 Problems related to living alone; R53.81 Other malaise; Z79.899 Other long term (current) drug therapy
CPT/HCPCS: 36415; 78315; 80048; 80053; 80202; 81001; 82550; 82565; 83605; 83735; 84100; 84484; 85025; 85610; 85652; 85730; 86140; 87040; 87070; 87075; 87086; 87205; 93005; 96361; 96365; 99285

== ENCOUNTER 2021-07-17 07:02 | Emergency (ER) | payer MEDICARE ==
[2021-07-17 07:13] VITALS: TEMP 97.4
--- NOTE | 2021-07-17 07:25 | ED ---
General Adult HPI - General Chief complaint: Fall Stated complaint: fall Time Seen by Provider: 07/17/21 07:02 Source: patient, EMS, RN notes reviewed, old records reviewed Mode of arrival: EMS Limitations: physical limitation - History of Present Illness Initial comments: This is an 86-year-old male who is brought in by EMS according to EMS the patient stated he rolled out of bed and there is a small hematoma on the right side of his scalp. Patient denies headache patient denies any numbness weakness. Patient denies neck pain. Staff said they thought he might have some slurred speech. EMS did not notice any slurred speech. Patient denies any chest pain or back pain. Patient denies any upper extremity pain. Patient states his right knee hurts a little bit but he states he is not concerned about it. Patient denies having slurred speech. Patient denies any neuro deficit when you ask about weakness or numbness. Patient states he has not recently been ill with fever chills or cough. - Related Data Home Medications Medication Instructions Recorded Confirmed Levothyroxine Sodium [Synthroid] 75 mcg PO DAILY 06/24/19 07/17/21 Lisinopril-Hctz 20-25 mg 1 tab PO DAILY 06/24/19 07/17/21 [Zestoretic 20-25] rOPINIRole HCL [Requip] 1 mg PO HS 06/24/19 07/17/21 Allergies Allergy/AdvReac Type Severity Reaction Status Date / Time No Known Allergies Allergy Verified 07/17/21 09:51 Review of Systems ROS Statement: Those systems with pertinent positive or pertinent negative responses have been documented in the HPI. ROS Other: All systems not noted in ROS Statement are negative. 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 RT KNEE REPLACED X2,LT KNEE REPLACED Past Anesthesia/Blood Transfusion Reactions: No Reported Reaction Past Psychological History: No Psychological Hx Reported Smoking Status: Unknown if ever smoked Past Alcohol Use History: None Reported Past Drug Use History: None Reported - Past Family History Mother Family Medical History: Cancer General Exam - General Exam Comments Initial Comments: GENERAL: Patient is well-developed and well-nourished. Patient is nontoxic and well- hydrated and is in no acute distress. There is a small 2 cm hematoma on the scalp on the right parietal region ENT: Neck is soft and supple. No significant lymphadenopathy is noted. Oropharynx is clear. Moist mucous membranes. Neck has full range of motion without eliciting any pain. EYES: The sclera were anicteric and conjunctiva were pink and moist. Extraocular movements were intact and pupils were equal round and reactive to light. Eyelids were unremarkable. PULMONARY: Unlabored respirations. Good breath sounds bilaterally. No audible rales rhonchi or wheezing was noted. CARDIOVASCULAR: There is a regular rate and rhythm without any murmurs gallops or rubs. ABDOMEN: Soft and nontender with normal bowel sounds. SKIN: Skin is clear with no lesions or rashes and otherwise unremarkable. NEUROLOGIC: Patient is alert and oriented x3. Patient has facial droop on the right and he states that is chronic from a previous cancer. MUSCULOSKELETAL: Patient is able to move all 4 extremities and always weak for there is no unilateral weakness. LYMPHATICS: No significant lymphadenopathy is noted PSYCHIATRIC: Normal psychiatric evaluation. Limitations: physical limitation Course Vital Signs 07/17/21 07/17/21 07/17/21 07:06 07:53 09:11 Temperature 97.4 F L Pulse Rate 86 66 62 Respiratory 18 16 20 Rate Blood Pressure 121/60 134/64 126/61 O2 Sat by Pulse 98 95 92 L Oximetry Medical Decision Making - Medical Decision Making EKG shows a junctional rhythm at 84 bpm cardiac is 92 QT interval 362 QTC is 427. Patient's EKG shows no ST segment elevation or depression. Patient's CT of the head and neck show no acute abnormality. X-ray of the knee shows no acute abnormality. Patient has no complaints patient be discharged home. Disposition Clinical Impression: Fall from bed Disposition: HOME SELF-CARE Condition: Good Instructions (If sedation given, give patient instructions): Fall Prevention for Older Adults (ED) Is patient prescribed a controlled substance at d/c from ED?: No Referrals: None,Stated [REFERRING] - 1-2 days Time of Disposition: 10:16
--- NOTE | 2021-07-17 08:15 | CT ---
EXAMINATION TYPE: CT brain usha prakash DATE OF EXAM: 07/17/2021 COMPARISON: NONE HISTORY: Fall out of bed with headache and neck pain. CT DLP: 1385.1 mGycm. Automated Exposure Control for Dose Reduction was Utilized. TECHNIQUE: CT scan of the head and cervical spine are performed without contrast. FINDINGS: There is no acute intracranial hemorrhage or midline shift identified. There is moderate- to-severe ventricular and sulcal prominence. Mild low attenuation in the periventricular white matter . The calvarium is intact. Near complete opacification of the visualized right maxillary sinus. Remai nder paranasal sinuses are clear. Globes are intact bilaterally. Cervical spine is visualized in its entirety from C1 through upper thoracic levels and demonstrates d extroconvex scoliosis centered upper thoracic spine without evidence of acute fracture or dislocation . There is exaggerated cervical curvature. Osseous structures are demineralized. Prevertebral soft t issue appears within normal limits. The C1-C2 articulation is within normal limits on the coronal im ages. Vertebral body heights are maintained. [id number] multilevel disc space narrowing and sp urring. Spinal canal grossly preserved. Axial images show multilevel uncovertebral facet degenerative changes contributing to multilevel bilateral neural foraminal narrowing. Lung apices show no pneumot horax. There is subcentimeter low dense nodule in the right thyroid lobe. Thyroid is overall small in size. Moderate to severe calcified plaque at bilateral carotid bulb level is present. Asymmetric rig ht submandibular and parotid gland atrophy is incidentally noted. IMPRESSION: 1. There is no acute fracture or dislocation evident in the cervical spine. 2. No acute intracranial hemorrhage or midline shift is seen.
--- NOTE | 2021-07-17 09:41 | XR ---
Right knee Limited HISTORY: Trauma and pain 4 views of the right knee Patient is status post right knee arthroplasty. There is anatomic alignment. Bone mineralization is s omewhat reduced. There is some motion on the exam. Ossific density in the suprapatellar location appe ars well-corticated and not felt likely to be acute. There are atherosclerotic vascular calcification s noted incidentally. IMPRESSION: No acute fracture or dislocation is evident.
[2021-07-17 10:37] VITALS: BP 164/75; PULSE 98; RESP 18
== END 2021-07-17 11:43 | disposition home or self-care (01) ==
LOC: EC 07:02
DX: S00.03XA Contusion of scalp, initial encounter (principal); I10 Essential (primary) hypertension; Z96.651 Presence of right artificial knee joint; W06.XXXA Fall from bed, initial encounter
CPT/HCPCS: 70450; 72125; 99285

== ENCOUNTER 2021-07-27 19:17 | Inpatient (IN) | payer MEDICARE ==
[2021-07-27] MEDS ORDERED: SODIUM CHLORIDE 0.9% 1,000 ML IV ONE ×2 (20:16→21:17)
[2021-07-27 20:43] LABS: Basophils % (A) 0 %; Eosinophils # (A) 0.1 k/uL (0-0.7); Eosinophils % (A) 2 %; HCT 34.7 % (39.0-53.0); HGB 10.8 gm/dL (13.0-17.5); Lymphocytes # (A) 0.9 k/uL (1.0-4.8); Lymphocytes % (A) 10 %; MCH 28.4 pg (25.0-35.0); MCHC 31.2 g/dL (31.0-37.0); MCV 91.2 fL (80.0-100.0); Mean Platelet Volume 9.2; Monocytes # (A) 0.6 k/uL (0-1.0); Monocytes % (A) 6 %; Neutrophils # (A) 7.3 k/uL (1.3-7.7); Neutrophils % (A) 80 %; Platelet Count 214 k/uL (150-450); RDW 15.4 % (11.5-15.5); WBC 9.1 k/uL (3.8-10.6)
[2021-07-27 20:46] LABS: Appearance,Urine Cloudy (Clear); Bacteria,Urine Many /hpf; Bilirubin,Urine Negative (Negative); Blood,Urine Negative (Negative); Budding Yeast,Urine Occasional /hpf; Color,Urine Yellow; Glucose,Urine (UA) Negative (Negative); Ketones,Urine Negative (Negative); Leukocyte Esterase,Urine Small (Negative); Mucus,Urine Rare /hpf; Nitrite,Urine Positive (Negative); PH, Urine 5.5 (5.0-8.0); Protein,Urine Trace (Negative); RBC,Urine <1 /hpf (0-5); Specific Gravity,Urine 1.016 (1.001-1.035); Urobilinogen,Urine <2.0 mg/dL (<2.0); WBC,Urine 7 /hpf (0-5)
[2021-07-27 20:54] LABS: Amphetamine Screen,Urine Not Detected (NotDetected); Barbiturate Screen,Urine Not Detected (NotDetected); Benzodiazepines Screen,Urine Not Detected (NotDetected); Cocaine Screen,Urine Not Detected (NotDetected); Lactic Acid, Venous 1.3 mmol/L (0.7-2.0); Methadone Screen, Urine Not Detected (NotDetected); Opiate Screen,Urine Detected (NotDetected); Oxycodone Screen, Urine Not Detected (NotDetected); Phencyclidine Screen,Urine Not Detected (NotDetected); Tricyclic Antidepressant,Urine Not Detected (NotDetected); Urn Cannabinoid Scrn Not Detected (NotDetected)
[2021-07-27 20:56] LABS: ALT 14 U/L (4-49); AST 58 U/L (17-59); African American GFR (CKD) 31 (>60 ml/min/1.73 sqM); Albumin 3.2 g/dL (3.5-5.0); Alcohol <10 mg/dL; Alkaline Phosphatase 178 U/L (38-126); Anion Gap 9 mmol/L; Blood Urea Nitrogen 77 mg/dL (9-20); Calcium 10.7 mg/dL (8.4-10.2); Carbon Dioxide 23 mmol/L (22-30); Chloride 107 mmol/L (98-107); Glucose 105 mg/dL (74-99); Non-African American GFR(CKD) 27 (>60 ml/min/1.73 sqM); Sodium 139 mmol/L (137-145); Total Bilirubin 0.6 mg/dL (0.2-1.3); Total Protein 6.3 g/dL (6.3-8.2)
[2021-07-27 21:01] LABS: Partial Thromboplastin Time 21.2 sec (22.0-30.0); Prothrombin Time 10.7 sec (9.0-12.0)
[2021-07-27] MEDS ORDERED: DEXTROSE 50% SYRINGE 50 ML IVP STA (21:17)
[2021-07-27] MEDS ORDERED: INSULIN REGULAR 100 UNIT/ML VIAL (IV) IV ONE (21:17)
[2021-07-27] MEDS ORDERED: SODIUM BICARB 8.4% 50 ML SYR (1 MEQ/ML) IV STA (21:17)
--- NOTE | 2021-07-27 21:20 | CT ---
EXAMINATION TYPE: CT brain wo con DATE OF EXAM: 07/27/2021 COMPARISON: 07/17/2021 HISTORY: Weakness, AMS CT DLP: 1119.4 mGycm Automated exposure control for dose reduction was used. There is cerebral cortical atrophy. There is moderate enlargement of the ventricles. There is no mass effect nor midline shift. There is no sign of intracranial hemorrhage. Calvarium is intact. The skul l base is intact. There is normal aeration of the temporal bones. There is mucosal thickening right m axillary sinus. IMPRESSION: Cerebral atrophy and hydrocephalus. Right maxillary sinusitis. No change. No acute abnormality.
[2021-07-27] MEDS ORDERED: ACETAMINOPHEN TAB 500 MG TAB PO STA (22:10)
[2021-07-27] MEDS ORDERED: MORPHINE SULFATE 4 MG/ML SYRINGE IV PRN (22:11)
[2021-07-27] MEDS ORDERED: ONDANSETRON 4 MG/2 ML VIAL IVP PRN (22:11)
[2021-07-27] MEDS ORDERED: NALOXONE 0.4 MG/ML 1 ML VIAL IV PRN (22:11)
[2021-07-27] MEDS ORDERED: SODIUM CHLORIDE 0.9% 1,000 ML IV SCH (22:15)
--- NOTE | 2021-07-27 22:31 | XR ---
EXAMINATION TYPE: XR ankle complete LT DATE OF EXAM: 07/27/2021 COMPARISON: NONE HISTORY: Pain TECHNIQUE: 3 views FINDINGS: Ankle mortise is anatomic. There is some hyperextension deformity of the foot. The subtalar joint appears intact. I see no fracture. There is mild vascular calcification. IMPRESSION: Extension deformity of the foot. No ankle fracture seen.
--- NOTE | 2021-07-27 22:33 | XR ---
EXAMINATION TYPE: XR pelvis AP view DATE OF EXAM: 07/27/2021 COMPARISON: NONE HISTORY: Pain TECHNIQUE: Single view FINDINGS: The pelvic ring is intact. There is significant deformity of the proximal right femur relat ed to previous surgery and removal of the hip prosthesis. There is a pseudoarthrosis of the acetabulu m with the intertrochanteric femur. The sacroiliac joints are intact. Proximal left femur is intact. IMPRESSION: No acute abnormality of the pelvis. Right hip pseudoarthrosis.
--- NOTE | 2021-07-27 22:40 | XR ---
EXAMINATION TYPE: XR knee complete LT DATE OF EXAM: 07/27/2021 COMPARISON: NONE HISTORY: Pain TECHNIQUE: 3 views FINDINGS: There is some spurring on the patella. There is left knee prosthesis. I see no fracture nor dislocation. There is no sign of the knee joint effusion. IMPRESSION: No acute abnormality of the left knee.
--- NOTE | 2021-07-27 22:41 | XR ---
EXAMINATION TYPE: XR chest 1V DATE OF EXAM: 07/27/2021 COMPARISON: 06/24/2019 HISTORY: Altered mental status TECHNIQUE: FINDINGS: Heart and mediastinum are within normal limits. Lungs are clear of consolidation. There are no hilar masses. There is arthritic change in both shoulder joints with subacromial joint space narr owing. There is no pleural effusion. IMPRESSION: No active cardiopulmonary disease. No adverse change.
--- NOTE | 2021-07-27 22:41 | ED ---
General Adult HPI - General Chief complaint: Altered Mental Status Stated complaint: Altered mental status Time Seen by Provider: 07/27/21 19:39 Source: patient, EMS, RN notes reviewed, old records reviewed Mode of arrival: EMS Limitations: altered mental status - History of Present Illness Initial comments: I evaluated the patient when he was placed in a room.Patient is an 86-year-old male with past medical history remarkable for junctional rhythm, hypertension, hip replacement who presents emergency Department complaining of intermittent right leg pain. EMS brought the patient off. Apparently, patient is a little bit slower to respond today and slower than normal. However he is still alert and oriented 4 which is baseline. He has minimal ambulation at home. They brought him to the emergency department for further evaluation. Patient c urrently is complaining of some chronic right leg pain. Denies any chest pain, shortness breath, abdominal pain, nausea, vomiting. Patient otherwise has no acute complaints at this time. Denies any fevers, chills, cough. His no other acute complaint. - Related Data Home Medications Medication Instructions Recorded Confirmed Levothyroxine Sodium [Synthroid] 75 mcg PO DAILY 06/24/19 07/27/21 Lisinopril-Hctz 20-25 mg 1 tab PO DAILY 06/24/19 07/27/21 [Zestoretic 20-25] rOPINIRole HCL [Requip] 1 mg PO HS 06/24/19 07/27/21 Allergies Allergy/AdvReac Type Severity Reaction Status Date / Time No Known Allergies Allergy Verified 07/27/21 20:00 Review of Systems ROS Statement: Those systems with pertinent positive or pertinent negative responses have been documented in the HPI. Review of Systems: CONST: Denies fever EYES: Denies blurry vision ENT: Denies nasal congestion C/V: Denies Chest pain RESP: Denies shortness of breath GI: Denies abdominal pain : Denies dysuria SKIN: Denies rash. MSK: Endorses right leg pain. NEURO: Denies headache ROS Other: All systems not noted in ROS Statement are negative. 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 RT KNEE REPLACED X2,LT KNEE REPLACED Past Anesthesia/Blood Transfusion Reactions: No Reported Reaction Past Psychological History: No Psychological Hx Reported Smoking Status: Unknown if ever smoked Past Alcohol Use History: None Reported Past Drug Use History: None Reported - Past Family History Mother Family Medical History: Cancer General Exam - General Exam Comments Initial Comments: General: Appears in no acute distress. HEAD: Normal with no signs of head trauma. EYES: PERRLA, EOMI, conjunctiva normal, no discharge. Pupils are 3+ bilaterally and equally reactive to light. ENT: Hearing grossly intact, normal oropharynx. Patient has sunken right side of face which is secondary to surgery residual facial droop. RESPIRATORY: Clear breath sounds bilaterally. No wheezes, rales, or rhonchi. C/V: Regular rate and rhythm. S1 and S2 auscultated, no edema, peripheral pulses 2+ and intact throughout ABD: Abd is soft, nontender, nondistended EXT: Normal range of motion, no obvious deformity SKIN: Patient has a stage I ulcer located over his left patella. He also has a small stage I's were located over the medial aspect of the left malleolus. NEURO: Alert and oriented 4. Bilateral lower extremity weakness which per patient is chronic. Chronic right facial droop from prior face surgery. No other acute neurological deficits at this time. Limitations: altered mental status Course Vital Signs 07/27/21 07/27/21 19:25 22:34 Temperature 97.9 F Pulse Rate 82 89 Respiratory 18 18 Rate Blood Pressure 100/54 115/87 O2 Sat by Pulse 94 L 95 Oximetry Medical Decision Making - Medical Decision Making Based on the patient's presentation and physical exam, we will obtain an altered mental status workup, as they're concerned for the speed at which she is responding to questions. This will include EKG, chest x-ray, CT brain, as well as basic laboratory studies. Patient will be given a 1 L fluid bolus. He was in agreement with this plan. We'll also obtain x-rays of the left knee, left ankle at the site of sores as well as the pelvis as he has a history of hip surgery. He was in agreement this plan. EKG revealed a chronic junctional rhythm without any signs of acute ischemia. CT brain showed no acute intracranial process. Chest x-ray shows no acute cardio pulmonary process. Extremity x-rays showed both sides of acute injury. Pelvic x-ray shows right hip has right hip pseudoarthrosis. Patient's lavatory studies are remarkable for a normocytic anemia with a hemoglobin of 10.8. Electrolytes were remarkable for a hyperkalemia of 6.0 without any EKG changes. Patient has an AK I with an elevated UL of 77 and creatinine 2.18. Patient is mildly hypercalcemic at 10.7. Urinalysis is remarkable for a positive UTI with positive nitrites, leukocyte esterase, wbc's and bacteria. UDS is remarkable for opiates. Remainder of his labs are unremarkable. Troponin is indeterminate at 0.018 which is likely secondary to his renal function. At this time I do believe he requires admission to the hospital for his UTI, TWAN. Patient was started on Rocephin for the UTI and culture was sent. Will be given an additional fluid bolus and started on maintenance fluids. The percy ent's hyper kalemia there are no acute EKG changes and therefore he will be given IV insulin as well as a D50 amp and bicarb amp. Repeat potassium will be obtained in a few hours. Morning laboratory studies will be obtained. They were in agreement with this plan. I spoke with the admitting team under Dr. Edwards who accepted the patient. Patient was admitted in serious condition to telemetry bed. Nephrology was consulted for evaluation tomorrow. - Lab Data Result diagrams: 07/27/21 20:23 07/27/21 20:23 Lab Results 07/27/21 07/27/21 07/27/21 Range/Units 20:23 20:23 20:23 WBC 9.1 (3.8-10.6) k/uL RBC 3.80 L (4.30-5.90) m/uL Hgb 10.8 L (13.0-17.5) gm/dL Hct 34.7 L (39.0-53.0) % MCV 91.2 (80.0-100.0) fL MCH 28.4 (25.0-35.0) pg MCHC 31.2 (31.0-37.0) g/dL RDW 15.4 (11.5-15.5) % Plt Count 214 (150-450) k/uL MPV 9.2 Neutrophils % 80 % Lymphocytes % 10 % Monocytes % 6 % Eosinophils % 2 % Basophils % 0 % Neutrophils # 7.3 (1.3-7.7) k/uL Lymphocytes # 0.9 L (1.0-4.8) k/uL Monocytes # 0.6 (0-1.0) k/uL Eosinophils # 0.1 (0-0.7) k/uL Basophils # 0.0 (0-0.2) k/uL PT 10.7 (9.0-12.0) sec INR 1.0 (<1.2) APTT 21.2 L (22.0-30.0) sec Sodium (137-145) mmol/L Potassium (3.5-5.1) mmol/L Chloride (98-107) mmol/L Carbon Dioxide (22-30) mmol/L Anion Gap mmol/L BUN (9-20) mg/dL Creatinine (0.66-1.25) mg/dL Est GFR (CKD-EPI)AfAm (>60 ml/min/1.73 sqM) Est GFR (CKD-EPI)NonAf (>60 ml/min/1.73 sqM) Glucose (74-99) mg/dL Plasma Lactic Acid Adan (0.7-2.0) mmol/L Calcium (8.4-10.2) mg/dL Total Bilirubin (0.2-1.3) mg/dL AST (17-59) U/L ALT (4-49) U/L Alkaline Phosphatase (38-126) U/L Ammonia (<30) umol/L Troponin I (0.000-0.034) ng/mL Total Protein (6.3-8.2) g/dL Albumin (3.5-5.0) g/dL Urine Color Yellow Urine Appearance Cloudy (Clear) Urine pH 5.5 (5.0-8.0) Ur Specific [place] 1.016 (1.001-1.035) Urine Protein Trace H (Negative) Urine Glucose (UA) Negative (Negative) Urine Ketones Negative (Negative) Urine Blood Negative (Negative) Urine Nitrite Positive (Negative) Urine Bilirubin Negative (Negative) Urine Urobilinogen <2.0 (<2.0) mg/dL Ur Leukocyte Esterase Small H (Negative) Urine RBC <1 (0-5) /hpf Urine WBC 7 H (0-5) /hpf Urine Bacteria Many H (None) /hpf Urine Mucus Rare H (None) /hpf Urine Yeast (Budding) Occasional H (None) /hpf Urine Opiates Screen Detected H (NotDetected) Ur Oxycodone Screen Not Detected (NotDetected) Urine Methadone Screen Not Detected (NotDetected) Ur Propoxyphene Screen Not Detected (NotDetected) Ur Barbiturates Screen Not Detected (NotDetected) U Tricyclic Antidepress Not Detected (NotDetected) Ur Phencyclidine Scrn Not Detected (NotDetected) Ur Amphetamines Screen Not Detected (NotDetected) U Methamphetamines Scrn Not Detected (NotDetected) U Benzodiazepines Scrn Not Detected (NotDetected) Urine Cocaine Screen Not Detected (NotDetected) U Marijuana (THC) Screen Not Detected (NotDetected) Serum Alcohol mg/dL 07/27/21 07/27/21 07/27/21 Range/Units 20:23 20:23 20:23 WBC (3.8-10.6) k/uL RBC (4.30-5.90) m/uL Hgb (13.0-17.5) gm/dL Hct (39.0-53.0) % MCV (80.0-100.0) fL MCH (25.0-35.0) pg MCHC (31.0-37.0) g/dL RDW (11.5-15.5) % Plt Count (150-450) k/uL MPV Neutrophils % % Lymphocytes % % Monocytes % % Eosinophils % % Basophils % % Neutrophils # (1.3-7.7) k/uL Lymphocytes # (1.0-4.8) k/uL Monocytes # (0-1.0) k/uL Eosinophils # (0-0.7) k/uL Basophils # (0-0.2) k/uL PT (9.0-12.0) sec INR (<1.2) APTT (22.0-30.0) sec Sodium 139 (137-145) mmol/L Potassium 6.0 H (3.5-5.1) mmol/L Chloride 107 (98-107) mmol/L Carbon Dioxide 23 (22-30) mmol/L Anion Gap 9 mmol/L BUN 77 H (9-20) mg/dL Creatinine 2.18 H (0.66-1.25) mg/dL Est GFR (CKD-EPI)AfAm 31 (>60 ml/min/1.73 sqM) Est GFR (CKD-EPI)NonAf 27 (>60 ml/min/1.73 sqM) Glucose 105 H (74-99) mg/dL Plasma Lactic Acid Adan 1.3 (0.7-2.0) mmol/L Calcium 10.7 H (8.4-10.2) mg/dL Total Bilirubin 0.6 (0.2-1.3) mg/dL AST 58 (17-59) U/L ALT 14 (4-49) U/L Alkaline Phosphatase 178 H (38-126) U/L Ammonia <9 (<30) umol/L Troponin I 0.018 (0.000-0.034) ng/mL Total Protein 6.3 (6.3-8.2) g/dL Albumin 3.2 L (3.5-5.0) g/dL Urine Color Urine Appearance (Clear) Urine pH (5.0-8.0) Ur Specific [place] (1.001-1.035) Urine Protein (Negative) Urine Glucose (UA) (Negative) Urine Ketones (Negative) Urine Blood (Negative) Urine Nitrite (Negative) Urine Bilirubin (Negative) Urine Urobilinogen (<2.0) mg/dL Ur Leukocyte Esterase (Negative) Urine RBC (0-5) /hpf Urine WBC (0-5) /hpf Urine Bacteria (None) /hpf Urine Mucus (None) /hpf Urine Yeast (Budding) (None) /hpf Urine Opiates Screen (NotDetected) Ur Oxycodone Screen (NotDetected) Urine Methadone Screen (NotDetected) Ur Propoxyphene Screen (NotDetected) Ur Barbiturates Screen (NotDetected) U Tricyclic Antidepress (NotDetected) Ur Phencyclidine Scrn (NotDetected) Ur Amphetamines Screen (NotDetected) U Methamphetamines Scrn (NotDetected) U Benzodiazepines Scrn (NotDetected) Urine Cocaine Screen (NotDetected) U Marijuana (THC) Screen (NotDetected) Serum Alcohol <10 mg/dL - EKG Data -: EKG Interpreted by Me EKG Comments: 12-lead Electrocardiogram Interpretation Note EKG was reviewed and interpreted by myself. 12-lead ECG performed at 2042 is interpreted by me as revealing junctional rhythm at a rate of 88 beats per minute. Left axis deviation. MI interval is unobtainable, QRS duration 90 ms, QTc is 435 ms.. There were no ST or T wave abnormalities to suggest myocardial ischemia or injury. R wave progression across the precordium was satisfactory. By my interpretation this EKG is non-diagnostic for acute ischemia. EKG machine read this is in atrial fibrillation but it does appear to be his chronic junctional rhythm as he has a history of this rhythm on prior EKGs and EKG appears similar to prior EKGs. Disposition Clinical Impression: Dehydration, UTI (urinary tract infection), TWAN (acute kidney injury), Hyperkalemia, Debility, Chronic pain of right lower extremity, Hypercalcemia Disposition: ADMITTED IP TO THIS [facility] Condition: Serious Referrals: Norman Ding MD [Primary Care Provider] - 1-2 days
[2021-07-28 04:20] LABS: Basophils % (A) 0 %; Eosinophils # (A) 0.1 k/uL (0-0.7); Eosinophils % (A) 2 %; HCT 31.4 % (39.0-53.0); HGB 9.8 gm/dL (13.0-17.5); Lymphocytes # (A) 0.9 k/uL (1.0-4.8); Lymphocytes % (A) 15 %; MCH 28.7 pg (25.0-35.0); MCHC 31.1 g/dL (31.0-37.0); MCV 92.2 fL (80.0-100.0); Mean Platelet Volume 8.5; Monocytes # (A) 0.4 k/uL (0-1.0); Monocytes % (A) 7 %; Neutrophils # (A) 4.2 k/uL (1.3-7.7); Neutrophils % (A) 73 %; Platelet Count 159 k/uL (150-450); RDW 15.3 % (11.5-15.5); WBC 5.8 k/uL (3.8-10.6)
[2021-07-28 04:47] LABS: Calcium 9.7 mg/dL (8.4-10.2); Magnesium 2.1 mg/dL (1.6-2.3)
[2021-07-28] MEDS: LEVOTHYROXINE 75 MCG TAB PO SCH (05:29)
[2021-07-28 05:46] LABS: Glucose,Whole Blood 91 mg/dL (75-99)
--- NOTE | 2021-07-28 06:44 | CT ---
EXAMINATION TYPE: CODE STROKE: CTA head neck DATE OF EXAM: 07/28/2021 COMPARISON: None HISTORY: code stroke CT DLP: 418.6 mGycm Automated exposure control for dose reduction was used. CONTRAST: Performed with IV Contrast, patient injected with 65ml mL of Isovue 370. There are 3-D post processed images. Images obtained from the aortic arch to the vertex of the brain. There is normal branching pattern of the great vessels on the aortic arch. There is bilateral arteria l flow in the subclavian arteries. There is arterial flow in the common internal and external carotid arteries bilaterally. There is moderate plaque at the carotid artery bifurcations. There is estimate d 60% diameter stenosis at the origin of the right internal carotid artery. There is estimated 30% st enosis origin of the left internal carotid artery. There is arterial flow in both vertebral arteries. There is arterial flow in the vertebrobasilar artery system. There is significant plaque in the dist al right internal carotid artery at the skull base. There is 50% stenosis. There is no evidence of ca rotid or vertebral artery aneurysm or dissection. There is arterial flow in the anterior middle and posterior cerebral arteries. I see no evidence of i ntracranial aneurysm. There is normal enhancement of the venous sinuses. There are some prominent ves sels which are irregular and serpiginous at the posterior fossa on the right side in the posterior as pect of the right cerebellar hemisphere. 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 There is cerebral cortical atrophy. There is mucosal thickening right maxillary sinus. IMPRESSION: Atherosclerotic vascular disease. There is stenosis at the origins of both internal carotid arteries as above. No evidence of hemodynamic intracranial arterial stenosis. 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 Cerebral atrophy.
--- NOTE | 2021-07-28 06:46 | CT ---
EXAMINATION TYPE: CT brain wo con for TPA DATE OF EXAM: 07/28/2021 COMPARISON: Yesterday HISTORY: code stroke CT DLP: 1150.8 mGycm Automated exposure control for dose reduction was used. There is cerebral cortical atrophy. There is no mass effect nor midline shift. There is no sign of in tracranial hemorrhage. There is enlargement of the ventricles. The calvarium is intact. There is muco prashanth thickening right maxillary sinus with fluid level. IMPRESSION: Cerebral atrophy. No acute intracranial abnormality. No change compared to yesterday.
[2021-07-28] MEDS ORDERED: LISINOPRIL-HCTZ 20-25 MG 1 EACH TAB PO SCH (09:00)
[2021-07-28] MEDS: DEXTROSE 5%-0.45% NACL 1,000 ML IV SCH ×2 (10:33→17:26)
[2021-07-28 12:23] VITALS: BMI 24.3
--- NOTE | 2021-07-28 12:42 | P.HPIM ---
History of Present Illness H&P Date: 07/28/21 Chief Complaint: Altered mental status History of presenting complaint: This is a 86-year-old patient. EMS was called by a friend. Friend told the EMS that he is known the patient for about 10 years. He found him to be confusing looking pale. Not acting right. Patient had a fall about 10 days ago went to the ER was discharged. He has not seen him for about a week. Patient's apartment is not crashed and he seems to be off. Patient is slow to answer questions. Patient's found to be an acute kidney injury in the ER. Patient is able to answer questions slowly. He is hungry. He knows that in the hospital. Not able to tell me much more. They can tell the month and the year slowly. Denies any fever and chills. No cough. Review of systems: GEN.: Tired EYES: None HEENT: None NECK: None RESPIRATORY: None CARDIOVASCULAR: None GASTROINTESTINAL: None GENITOURINARY: None MUSCULOSKELETAL: Some joint pains LYMPHATICS: None HEMATOLOGICAL: None PSYCHIATRY: None NEUROLOGICAL: Decreased cognition Past medical history to include: Hypertension, hypertension hypothyroid Social history: Lives at [facility]. Patient smoked cigars from 1963 through 1993. No alcohol. Family history: Cancer Physical examination: VITAL SIGNS: 98.5, 69, 16, 116/67, 97% on room air GENERAL: BMI 24.3, laying in bed, tired, lethargic. EYES: Pupils equal. Conjunctiva normal. HEENT: External appearance of nose and ears normal, oral cavity dry mucous membranes decreased hygiene. NECK: JVD not raised; masses not palpable. HEART: First and second heart sounds are normal; no edema. LUNGS: Respiratory rate normal; decreased breath sounds. ABDOMEN: Soft, nontender, liver spleen not palpable, no masses palpable. PSYCH: Lethargic but is able to state that he is in the hospital, knows the year and now started this falll. MUSCULAR skeletal: Evidence of OA NEUROLOGICAL: Cranial nerves grossly intact; no facial asymmetry, power and sensation grossly intact. LYMPHATICS: No lymph nodes palpable in the axilla and neck. INVESTIGATIONS, reviewed in the clinical context: White count 5.8 hemoglobin 9.8 platelets 159 potassium 5 BUN 70 creatinine 1.89 Admission labs: Hemoglobin 10.8 potassium 6 BUN 77 creatinine 2.18 Troponin I 0.018, 0.034, 0.037 UA positive for leukoesterase, WBC 7 Urine drug screen positive for opiates Coronavirus [PCR is back at: Not detected EKG tracing personally reviewed by me-atrial fibrillation rate 88 Computed tomography scan of the brain: Cerebral atrophy and hydrocephalus. Chest x-ray film personally reviewed by me: No infiltrates Assessment and plan: -This patient presents with altered mental status somewhat lethargic with decreased sensorium. No focal signs. Most likely this is metabolic encephalopathy as by the from underlying acute kidney injury. Close neuro following. IV fluids. -Acute kidney injury. Prerenal. ATN cannot be ruled out. Will stop Zestoretic. Renal ultrasound. Strict I's and O's. Follow labs. IV fluids. -Hypothyroid Synthroid 25 g daily -Suspect underlying cognitive impairment. We will further evaluate after correcting dehydration. -Possible UTI with cystitis acute IV ceftriaxone -Troponin leak in the setting of acute hemodynamic mismatch. No obvious clinical suggestion of acute coronary syndrome Fall precautions.. Diet. Supervised feeding. Follow labs. Renal ultrasound. IV fluids. Neurology was consulted. 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 RT KNEE REPLACED X2,LT KNEE REPLACED Past Anesthesia/Blood Transfusion Reactions: No Reported Reaction Past Psychological History: No Psychological Hx Reported Additional Psychological History / Comment(s): Pt lives alone in a multilevel home. Pt has a friend that is availabel to help him with any of his needs. Pt states his biggest problem is getting in and out of bed. Pt and his friend are hoping tohave pt go to [facility] for post op rehab. Pt is mostly in a w/c or bed at this time. Pt has a power w/chair at home and a chairlift to go up the stairs. There is no bathroom on the first floor of [facility]. Pt did have [facility] coming into the home once a week foe personal care. Pt did not have a good experience with [facility] in the past. Smoking Status: Unknown if ever smoked Past Alcohol Use History: None Reported Additional Past Alcohol Use History / Comment(s): STARTED SMOKING CIGARS 1964 QUIT SMOKING 1993 Past Drug Use History: None Reported - Past Family History Mother Family Medical History: Cancer Medications and Allergies Home Medications Medication Instructions Recorded Confirmed Type Levothyroxine Sodium [Synthroid] 75 mcg PO DAILY 06/24/19 07/27/21 History Lisinopril-Hctz 20-25 mg 1 tab PO DAILY 06/24/19 07/27/21 History [Zestoretic 20-25] rOPINIRole HCL [Requip] 1 mg PO HS 06/24/19 07/27/21 History Allergies Allergy/AdvReac Type Severity Reaction Status Date / Time No Known Allergies Allergy Verified 07/27/21 20:00 Physical Exam Vitals: Vital Signs Temp Pulse Pulse Resp BP BP Pulse Ox 07/28/21 08:03 98.5 F 69 16 116/67 97 07/28/21 05:55 97.1 F L 65 16 126/87 95 07/28/21 01:41 98.7 F 16 07/27/21 23:55 98.3 F 80 18 110/51 95 07/27/21 22:34 89 18 115/87 95 07/27/21 19:25 97.9 F 82 18 100/54 94 L Intake and Output 07/27/21 07/28/21 07/28/21 22:59 06:59 14:59 Output Total 410 Balance -410 Output: Urine 410 Other: # Voids 1 # Bowel Movements 0 Weight 81.193 kg 81.193 kg Results CBC & Chem 7: 07/28/21 03:58 07/28/21 03:58 Labs: Abnormal Lab Results - Last 24 Hours (Table) 07/27/21 07/27/21 07/27/21 Range/Units 20:23 20:23 20:23 RBC 3.80 L (4.30-5.90) m/uL Hgb 10.8 L (13.0-17.5) gm/dL Hct 34.7 L (39.0-53.0) % Lymphocytes # 0.9 L (1.0-4.8) k/uL APTT 21.2 L (22.0-30.0) sec Potassium (3.5-5.1) mmol/L Chloride (98-107) mmol/L BUN (9-20) mg/dL Creatinine (0.66-1.25) mg/dL Glucose (74-99) mg/dL Calcium (8.4-10.2) mg/dL Alkaline Phosphatase (38-126) U/L Troponin I (0.000-0.034) ng/mL Albumin (3.5-5.0) g/dL Urine Protein Trace H (Negative) Ur Leukocyte Esterase Small H (Negative) Urine WBC 7 H (0-5) /hpf Urine Bacteria Many H (None) /hpf Urine Mucus Rare H (None) /hpf Urine Yeast (Budding) Occasional H (None) /hpf Urine Opiates Screen Detected H (NotDetected) 07/27/21 07/28/21 07/28/21 Range/Units 20:23 03:58 03:58 RBC 3.40 L (4.30-5.90) m/uL Hgb 9.8 L (13.0-17.5) gm/dL Hct 31.4 L (39.0-53.0) % Lymphocytes # 0.9 L (1.0-4.8) k/uL APTT (22.0-30.0) sec Potassium 6.0 H (3.5-5.1) mmol/L Chloride (98-107) mmol/L BUN 77 H (9-20) mg/dL Creatinine 2.18 H (0.66-1.25) mg/dL Glucose 105 H (74-99) mg/dL Calcium 10.7 H (8.4-10.2) mg/dL Alkaline Phosphatase 178 H (38-126) U/L Troponin I 0.037 H* (0.000-0.034) ng/mL Albumin 3.2 L (3.5-5.0) g/dL Urine Protein (Negative) Ur Leukocyte Esterase (Negative) Urine WBC (0-5) /hpf Urine Bacteria (None) /hpf Urine Mucus (None) /hpf Urine Yeast (Budding) (None) /hpf Urine Opiates Screen (NotDetected) 07/28/21 Range/Units 03:58 RBC (4.30-5.90) m/uL Hgb (13.0-17.5) gm/dL Hct (39.0-53.0) % Lymphocytes # (1.0-4.8) k/uL APTT (22.0-30.0) sec Potassium (3.5-5.1) mmol/L Chloride 112 H (98-107) mmol/L BUN 70 H (9-20) mg/dL Creatinine 1.89 H (0.66-1.25) mg/dL Glucose (74-99) mg/dL Calcium (8.4-10.2) mg/dL Alkaline Phosphatase (38-126) U/L Troponin I (0.000-0.034) ng/mL Albumin (3.5-5.0) g/dL Urine Protein (Negative) Ur Leukocyte Esterase (Negative) Urine WBC (0-5) /hpf Urine Bacteria (None) /hpf Urine Mucus (None) /hpf Urine Yeast (Budding) (None) /hpf Urine Opiates Screen (NotDetected) Thrombosis Risk Factor Assmnt - Choose All That Apply Any of the Below Risk Factors Present?: No Other Risk Factors: No Other congenital or acquired thrombophilia - If yes, enter type in comment: No Thrombosis Risk Factor Assessment Level: Very Low Risk
--- NOTE | 2021-07-28 13:18 | CONS ---
CONSULTATION REASON FOR CONSULT: Renal failure. HISTORY OF PRESENT ILLNESS: The patient is an 86-year-old male who was admitted to the hospital yesterday with complaints of increased weakness. He had altered mentation as well. He has had significant leg pain. The patient denies any history of kidney diseases. His serum creatinine was noted to be 2.1 mg/dL. It is down to 1.8 today. Previous labs show creatinine of 0.89 on 12/07/2019. Blood pressure has been slightly on the lower side with systolic around 100 mmHg. The patient was maintained on ASHELY inhibitors and diuretics prior to admission. This is currently on hold. He is currently receiving IV fluids at 125 mL an hours. PAST MEDICAL HISTORY: Significant for hypertension, history of pneumonia. PAST SURGICAL HISTORY: Cholecystectomy, total right hip arthroplasty, right knee arthroplasty. SOCIAL HISTORY: Negative for smoking, drug abuse or alcohol abuse. MEDICATIONS: Medications at home included Synthroid, lisinopril, hydrochlorothiazide, Requip. ALLERGIES: None. REVIEW OF SYSTEMS: As per HPI. Other systems negative. EXAMINATION: The patient is comfortable, awake, not in any acute distress. Blood pressure is 116/67, heart rate 69 per minute. He is afebrile. Examination of the heart S1, S2. Examination of the lungs, bilateral breath sounds are heard. Decreased breath sounds at bases. Abdomen is soft, nontender. Examination of lower extremities shows no significant edema. PLAY WRITER exam grossly intact. LAB: Show sodium 141, potassium 5.0, chloride 112, BUN 70, creatinine 1.89, hemoglobin 9.8 g/dL. UA is quite benign. ASSESSMENT: 1. Acute kidney injury associated with hypovolemia and hypoperfusion in the setting of use of ASHELY inhibitors, currently improving with IV fluids and continue to hold off on the ASHELY inhibitors and diuretics for now. 2. Hyperkalemia associated with acute kidney injury use of ASHELY inhibitors currently improved. 3. History of hypertension. Blood pressure currently not elevated. Continue to hold off on antihypertensive medications. 4. Anemia, rule out iron deficiency. 5. Mental status changes, associated with volume depletion and acute kidney injury, expect improvement. PLAN: Avoid any nephrotoxic agents. Patient did receive IV contrast for angiogram done early this morning. Continue with IV fluids. Hold off on lisinopril hydrochlorothiazide. Repeat labs in a.m. Check ultrasound of the kidneys. Check iron studies. Thank you for this consultation. We will continue to follow the patient with you during his hospitalization. MMCARIDAD / LETIN: [id number] /
--- NOTE | 2021-07-28 13:58 | P.CNNES ---
History of Present Illness Consult date: 07/28/21 Requesting physician: Rene Edwards Reason for Consult: Code stroke, AMS History of Present Illness: This is an 86-year-old gentleman with medical history of skin cancer s/p radiation with residual right vision loss and right facial droop, bilateral lower extremity weakness and is wheel chair bound/non-ambulatory for past 5 years, hypertension, hypothyroidism, right hip replacement, bilateral knee replacement presented emergency department via EMS on 07/27/2021 complaining of intermittent right leg pain. History is obtained form patient power of trademark attorney (John) and some from his nurse. Neurology team consulted focal stroke and altered mental status. I spoke with a power of trademark attorney and he stated that the patient has been the altered for the past 2 weeks. He said about 2 weeks ago his a powered wheelchair got caught up to the cabinet and it felt onto his head and ever since and he felt he's been more confused. He brought him to the hospital since the patient was slow to respond not responding appropriately and that looked pale. Patient does not have any history of stroke, TIAs or seizures. Patient denies of any new focal weakness, numbness, visual disturbance or difficulty getting words out. He does have bilateral lower extremity weakness and is wheelchair-bound. In the ED it was felt the patient had altered mental status due to urinary tract infection as well as acute kidney injury. Patient had a CT of the head ordered by the ED team and it's reported as cerebral atrophy and hydrocephalus. Right maxillary sinusitis. No change. No acute abnormality. But according to the a.m. nurse today the night nurse felt the patient had left facial droop as well as right-sided that tingling as a result activities stroke code. The a.m. nurse did not know the exact story and she thought the patient the was at the nursing facility and was found outside walk-in and confused at [facility] that she was relayed to her (but I notified that patient is non-ambulatory). Patient scored 5 for NIH stroke scale (1LOC, 2 facial palsy, 1 language, 1 dysarthria). As stated earlier patient denied of any new weakness any tingling or numbness. Repeat CT of the head is reported as she will atrophy. No acute intracranial abnormality. No change compared to yesterday. I personally reviewed the CT of the head and I don't appreciate any acute or subacute ischemia. I feel the patient has generalized atrophy but the patient does have hydrocephalus and I feel that ventricles are dilated throughou t lateral third and fourth ventricle more than the atrophy. CT angiography of the head and neck was reported as atherosclerotic vascular disease. There is stenosis at the origin of both internal carotid arteries as above. No evidence of hemodynamic intracranial arterial stenosis. 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 Cerebral atrophy. In the body of the report it is mentioned there is estimated 60% diameter stenosis at the origin of the right internal carotid artery and 30% stenosis of the left internal carotid artery. No IV TPA since unknown when last normal. Patient will medication consist of lisinopril with hydrochlorothiazide, Synthroid, ropinirole 1mg qhs. Per the power of [employer] Chief (John), Patient uses a powered wheel chair for the past 5-6 years because failed right hip surgery and took out the right top leg since failed right hip. He is non-ambulatory since that time (5-6 years). He has been living at assisted living facility. He has history of right facial skin cancer s/p radiation and result has right visual loss and right facial droop. Some of the other workup in the hospital consisted of: Initial vital signs was blood pressure 100/54, heart rate of 82, respiratory of 18, temperature of 97.9 Fahrenheit oral and pulse ox of 94% liters at room air. White blood cell is 9.1. Initial creatinine is 2.18 repeat is 1.89. Initial potassium 6.0 and the repeated is 5.1. Sodium is 141, glucose is 88, calcium is 9.7, magnesium 2.1, AST of 58, ALT of 14, ammonia is less than 9. Urinalysis is urine leukocyte esterase is small, urine white blood cells 7, urine bacteria is many Urine toxicology screen is positive for opiates. Serum alcohol was less than 10. Ordonez virus PCR was not detected. Last troponin level is 0.037. EKG is reported as atrial fibrillation with premature ventricular or aberrantly conducted complexes. Left atrial fascicular block. Nonspecific ST abnormality, probably due to callus affected. Abnormal QRS angle, consider primary at T-wave abnormality. Review of Systems Review of system: The 12 point system was reviewed and apparent positive and negative per HPI. 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 RT KNEE REPLACED X2,LT KNEE REPLACED Past Anesthesia/Blood Transfusion Reactions: No Reported Reaction Past Psychological History: No Psychological Hx Reported Additional Psychological History / Comment(s): Pt lives alone in a multilevel home. Pt has a friend that is availabel to help him with any of his needs. Pt states his biggest problem is getting in and out of bed. Pt and his friend are hoping tohave pt go to [facility] for post op rehab. Pt is mostly in a w/c or bed at this time. Pt has a power w/chair at home and a chairlift to go up the stairs. There is no bathroom on the first floor of [facility]. Pt did have [facility] coming into the home once a week foe personal care. Pt did not have a good experience with [facility] in the past. Smoking Status: Unknown if ever smoked Past Alcohol Use History: None Reported Additional Past Alcohol Use History / Comment(s): STARTED SMOKING CIGARS 1964 QUIT SMOKING 1993 Past Drug Use History: None Reported - Past Family History Mother Family Medical History: Cancer Medications and Allergies Home Medications Medication Instructions Recorded Confirmed Type Levothyroxine Sodium [Synthroid] 75 mcg PO DAILY 06/24/19 07/27/21 History Lisinopril-Hctz 20-25 mg 1 tab PO DAILY 06/24/19 07/27/21 History [Zestoretic 20-25] rOPINIRole HCL [Requip] 1 mg PO HS 06/24/19 07/27/21 History Allergies Allergy/AdvReac Type Severity Reaction Status Date / Time No Known Allergies Allergy Verified 07/27/21 20:00 Physical Examination - Vital Signs Vital Signs: Vital Signs Temp Pulse Pulse Resp BP BP Pulse Ox 07/28/21 08:03 98.5 F 69 16 116/67 97 07/28/21 05:55 97.1 F L 65 16 126/87 95 07/28/21 01:41 98.7 F 16 07/27/21 23:55 98.3 F 80 18 110/51 95 07/27/21 22:34 89 18 115/87 95 07/27/21 19:25 97.9 F 82 18 100/54 94 L Intake and Output 07/27/21 07/28/21 07/28/21 22:59 06:59 14:59 Output Total 410 Balance -410 Output: Urine 410 Other: # Voids 1 # Bowel Movements 0 Weight 81.193 kg 81.193 kg GENERAL: The patient is lying in bed and is not in acute distress. CHEST: The heart rate is regular rate rhythm. No murmurs to auscultation. No carotid bruit bilaterally. LUNG: Clear to auscultation bilaterally no wheezing noted throughout. Not lab ored breathing. ABDOMEN/GI: Bowel sounds present in all 4 quadrants. No tenderness to palpation throughout. NEUROLOGICAL: Higher mental function: The patient is awake, alert, oriented to self, place and time. He is able to name objects correctly (pen and watch) Patient is following simple commands. No aphasia and no neglect. Cranial nerves: The right eye is opaque in coloration (old) and would be shut and is able to open it. Pupils are round, equal and reactive to light. Patient has only light/dark perception to color over right eye (old). Visual lee is hard to assess over the left. Extraocular movement is intact no nystagmus is noted. Facial sensation is normal to touch throughout. The facial strength is right lower facial droop with scar over the right (has hx of skin cancer s/p radiation). 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 Tongue is midline and moved [id number] without any difficulty. No dysarthria is noted. Shoulder shrug is normal bilaterally. Motor: Gait is deferred since is wheel chair bound. The strength is 5 over 5 throughout uppers while lowers could not assess because of his pain. He was able to have extend and flex his left knee while has slight movement over the right but was in pain (Baseline is wheel chair bound and has hx of weakness) and when I tried moving his leg he was in pain. Has atrophy over the right lower side compared to left. Normal tone in uppers. Cerebellum: Normal finger to nose bilaterally. Sensation: Sensation is normal to touch throughout. Reflexes (right/left): 2+ throughout uppers while lower could not assess because of pain. Plantars are mute bilaterally. Results - Laboratory Findings CBC and BMP: 07/28/21 03:58 07/28/21 03:58 Abnormal Lab Findings: Abnormal Labs 07/27/21 07/27/21 07/27/21 20:23 20:23 20:23 RBC 3.80 L Hgb 10.8 L Hct 34.7 L Lymphocytes # 0.9 L APTT 21.2 L Potassium Chloride BUN Creatinine Glucose Calcium Alkaline Phosphatase Troponin I Albumin Urine Protein Trace H Ur Leukocyte Esterase Small H Urine WBC 7 H Urine Bacteria Many H Urine Mucus Rare H Urine Yeast (Budding) Occasional H Urine Opiates Screen Detected H 07/27/21 07/28/21 07/28/21 20:23 03:58 03:58 RBC 3.40 L Hgb 9.8 L Hct 31.4 L Lymphocytes # 0.9 L APTT Potassium 6.0 H Chloride BUN 77 H Creatinine 2.18 H Glucose 105 H Calcium 10.7 H Alkaline Phosphatase 178 H Troponin I 0.037 H* Albumin 3.2 L Urine Protein Ur Leukocyte Esterase Urine WBC Urine Bacteria Urine Mucus Urine Yeast (Budding) Urine Opiates Screen 07/28/21 03:58 RBC Hgb Hct Lymphocytes # APTT Potassium Chloride 112 H BUN 70 H Creatinine 1.89 H Glucose Calcium Alkaline Phosphatase Troponin I Albumin Urine Protein Ur Leukocyte Esterase Urine WBC Urine Bacteria Urine Mucus Urine Yeast (Budding) Urine Opiates Screen Assessment and Plan Assessment: Altered mental status possibly a component of underlying urinary tract infection as well as metabolic encephalopathy--currently mentation is improving. 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 Cannot rule out finding was not result of hx of facial radiation. 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 Plan: * I am not 100% convinced that the patient had a stroke or TIA. Patient denies of strokelike symptoms. I spoke with the patient regarding doing further workup and he asked me to speak with a power of trademark attorney which I did. John (power of trademark attorney), stated that he did not want to pursue with further workup for this stroke/TIA. He does not want to get MRI, carotid duplex, 2-D echo or lipid panel or vascular surgery team. * I ordered TSH, hemoglobin A1c, vitamin B12, folate. * I started the patient on aspirin 81 mg and statin 20 mg which should help with the carotid stenosis * Continue neuro checks * On cardiac monitoring * Recommend patient to follow up with the neurosurgery team regarding ?venous malformation seen on the CTA, consider diagnostic cerebral angiogram as outpatient as well as consider further work-up for radiographic normal pressure hydrocephalus as outpatient (In my opinoin, I would avoid surgery for ?Normal pressure Hydrocephalus since patient is non-ambulatory at baseline and has been thru so many surgeries in the past but will defer it up to him and power of trademark attorney). * We'll defer the rest of the medical management to the primary team. * Upon discharge the patient needs to follow-up with a neurologist in outpatient within 1-2 weeks. The plan is discussed with his power of trademark attorney (John) via phone in length and his nurse Thank you for the Consultation. Romel Davenport M.D. Neuro-hospitalist Time with Patient: Greater than 30
--- NOTE | 2021-07-28 15:03 | US ---
EXAMINATION TYPE: US kidneys/renal and bladder DATE OF EXAM: 07/28/2021 COMPARISON: NONE CLINICAL HISTORY: RF. Renal failure on elderly male who is laying on his left sdie, cannot move and t ech had nop help to turn patient to his right to evaluate left renal EXAM MEASUREMENTS: Right Kidney: 11.7 x 4.0 x 5.7 cm Left Kidney: unable to scan patient voided in urinal just prior to exam Right Kidney: Hydronephrosis seen Left Kidney: unable to see due to patient positioning Bladder: not seen free fluid noted superior to bladder within pelvis IMPRESSION: There is some free fluid in the pelvis. Right kidney shows hydronephrosis. Left kidney was not evalua priti. There is no evidence of a solid mass in the right kidney. Urinary bladder not evaluated.
[2021-07-28] MEDS: ASPIRIN 81 MG PO SCH (17:14)
[2021-07-28 18:10] LABS: % Iron Saturation 7.87 (15.00-50.00)
[2021-07-28 18:43] LABS: Folate, Serum 5.6 ng/mL (4.40-31.00)
[2021-07-28] MEDS: ATORVASTATIN 20 MG TAB PO SCH (20:22)
[2021-07-29] MEDS: DEXTROSE 5%-0.45% NACL 1,000 ML IV SCH ×3 (02:45→23:32)
[2021-07-29] MEDS: LEVOTHYROXINE 75 MCG TAB PO SCH (05:39)
[2021-07-29] MEDS: ASPIRIN 81 MG PO SCH (08:16)
[2021-07-29] MEDS: FOLIC ACID 1 MG TAB PO SCH (08:18)
[2021-07-29] MEDS: CYANOCOBALAMIN 500 MCG TAB PO SCH (08:18)
[2021-07-29 08:57] LABS: African American GFR (CKD) 49 (>60 ml/min/1.73 sqM); Anion Gap 6 mmol/L; Blood Urea Nitrogen 47 mg/dL (9-20); Calcium 10.1 mg/dL (8.4-10.2); Carbon Dioxide 23 mmol/L (22-30); Chloride 112 mmol/L (98-107); Glucose 107 mg/dL (74-99); Non-African American GFR(CKD) 43 (>60 ml/min/1.73 sqM); Potassium 4.8 mmol/L (3.5-5.1); Sodium 141 mmol/L (137-145)
--- NOTE | 2021-07-29 09:29 | P.PN ---
Subjective Progress Note Date: 07/29/21 I saw the patient's at bedside and he feels about the same. Denies any neurological deficits. Per the patient's AM nurse she did not feel he was confused and seemed interacting appropriately and no events overnight. Objective - Vital Signs Vital signs: Vital Signs Temp 98.1 F 07/29/21 02:29 Pulse 69 07/29/21 02:29 Resp 17 07/29/21 02:29 BP 127/56 07/29/21 02:29 Pulse Ox 94 L 07/29/21 02:29 Intake & Output 07/28/21 07/29/21 07/29/21 18:59 06:59 18:59 Output Total 500 Balance -500 Weight 81.193 kg Output: Urine 500 Other: # Voids 3 4 - Exam GENERAL: The patient is lying in bed and is not in acute distress. NEUROLOGICAL: Higher mental function: The patient is awake, alert, oriented to self, place and time. He is able to name objects correctly (pen and watch) Patient is following simple commands. No aphasia and no neglect. Cranial nerves: The right eye is opaque in coloration (old) and would be shut and is able to open it. Pupils are round, equal and reactive to light. Patient has only light/dark perception to color over right eye (old). Visual lee is hard to assess over the left. Extraocular movement is intact no nystagmus is noted. Facial sensation is normal to touch throughout. The facial strength is right lower facial droop with scar over the right (has hx of skin cancer s/p radiation). 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 Tongue is midline and moved [id number] without any difficulty. No dysarthria is noted. Shoulder shrug is normal bilaterally. Motor: Gait is deferred since is wheel chair bound. The strength is 5 over 5 t hroughout uppers while lowers could not assess because of his pain. He was able to have extend and flex his left knee while has slight movement over the right but was in pain (Baseline is wheel chair bound and has hx of weakness) and when I tried moving his leg he was in pain. Has atrophy over the right lower side compared to left. Normal tone in uppers. Cerebellum: Normal finger to nose bilaterally. Sensation: Sensation is normal to touch throughout. Reflexes (right/left): 2+ throughout uppers while lower could not assess because of pain. Plantars are mute bilaterally. WORK-UP: Ammonia level is less than 9 Serum B12 is a 314 which is low normal. Serum folate is 5.6 which is low normal. HbA1c is 4.8. CT of the head ordered by the ED team and it's reported as cerebral atrophy and hydrocephalus. Right maxillary sinusitis. No change. No acute abnormality. Repeat CT of the head is reported as she will atrophy. No acute intracranial abnormality. No change compared to yesterday. I personally reviewed the CT of the head and I don't appreciate any acute or subacute ischemia. I feel the patient has generalized atrophy but the patient does have hydrocephalus and I feel that ventricles are dilated throughout lateral third and fourth ventricle more than the atrophy. CT angiography of the head and neck was reported as atherosclerotic vascular disease. There is stenosis at the origin of both internal carotid arteries as above. No evidence of hemodynamic intracranial arterial stenosis. 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 Cerebral atrophy. In the body of the report it is mentioned there is estimated 60% diameter stenosis at the origin of the right internal carotid artery and 30% stenosis of the left internal carotid artery. - Labs CBC & Chem 7: 07/28/21 03:58 07/29/21 06:43 Labs: Abnormal Lab Results - Last 24 Hours (Table) 07/28/21 Range/Units 06:13 Iron 16 L (65-175) ug/dL TIBC 206 L (228-460) ug/dL % Saturation 7.87 L (15.00-50.00) Transferrin 147.0 L (204.0-354.0) mg/dL Assessment and Plan Assessment: Altered mental status possibly a component of underlying urinary tract infection as well as metabolic encephalopathy--currently mentation is improving. 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 Cannot rule out finding was not result of hx of facial radiation. Low normal Vitamin B12 and folate level. 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 Plan: * I am not 100% convinced that the patient had a stroke or TIA and I feel patient's nurse did not know patient's complete history (skin cancer s/p radiation causing facial asymmetry). Patient denies of strokelike symptoms. I spoke with the patient regarding doing further workup and he asked me to speak with a power of attorney law clerk which I did. John (power of attorney law clerk), stated that he did not want to pursue with further workup for this stroke/TIA. He does not want to get MRI, carotid duplex, 2-D echo or lipid panel or vascular surgery team. * Because of low normal vitamin B12 (314) and folate (5.6): I will start the patient on Vitamin B12 1000mcg daily and folate 1mg daily. * Pending TSH * Continue aspirin 81 mg and statin 20 mg (both started during this hospital stay) which should help with the carotid stenosis * Ordered routine EEG. I will not start the patient on anti-epileptic drug unless there is epileptiform discharges or seizure on the EEG. But this can be done as outpatient if patient is discharged today. * Continue neuro checks * On cardiac monitoring * Recommend patient to follow up with the neurosurgery team regarding ?venous malformation seen on the CTA, consider diagnostic cerebral angiogram as outpatient (for diagnostic cereberal angiogram can contact the interventional neurologist at [phone] at [facility]) as well as consider further work-up for radiographic normal pressure hydrocephalus as outpatient (In my opinoin, I would avoid surgery for ?Normal pressure Hydrocephalus since patient is non-ambulatory at baseline and has been thru so many surgeries in the past but will defer it up to patient and power of attorney law clerk). * We'll defer the rest of the medical management to the primary team. * Upon discharge the patient needs to follow-up with a neurologist in outpatient within 1-2 weeks. The plan is discussed with his nurse. If EEG is negative then he is clear for discharge. No additional testing beside basic work-up stated above. Dr. Leung will take over neurology service tomorrow AM. Romel Davenport M.D. Neuro-hospitalist Time with Patient: Less than 30
--- NOTE | 2021-07-29 11:47 | PN ---
PROGRESS NOTE Patient is seen for followup for acute kidney injury. Patient's renal function continues to improve. His creatinine is down to 1.4 from 2.1 on initial admission. On examination today, blood pressure 116/42, heart rate 60 per minute. He is afebrile. EXAMINATION OF THE HEART: S1 and S2. EXAMINATION OF LUNGS: Bilateral breath sounds are heard. Abdomen is soft, non-tender. Examination of lower extremities shows no significant edema. Labs show sodium 141, potassium 4.8, chloride 112. CO2 is 23, BUN 47, creatinine 1.48. ASSESSMENT: 1. Acute kidney injury, prerenal, currently improving. Diuretics and ASHELY inhibitors on hold. 2. Hyperkalemia associated with acute kidney injury, use of ASHELY inhibitors, now improved. 3. History of hypertension. Blood pressure currently not elevated. 4. Mental status changes associated with volume depletion and renal failure, now slowly improving. 5. Iron deficiency. Add IV iron. PLAN: Continue IV fluids. Check labs in a.m. Monitor electrolytes. MMODL / IJN: [id number] /
--- NOTE | 2021-07-29 12:41 | CONS ---
CONSULTATION This patient is an 86-year-old gentleman who is admitted to hospital with change in mental status. He has a history of skin cancer with radiation and right facial droop and loss of vision. He has history of atrial fibrillation, hypertension, hypothyroidism. He is admitted with confusion and renal insufficiency. I have been consulted because of pauses that were less than 3 seconds in duration. He is a poor historian. I am not able to obtain much information from him, but he is lying comfortably in bed. I am told by the nurse that there were no episodes of more than 3- second pauses. His EKG shows atrial fibrillation with nonspecific ST-T wave changes. Cardiac enzymes show that the troponin is elevated at 0.037. BUN is 47, creatinine is 1.4. PAST MEDICAL HISTORY: Significant for hypertension and hypothyroidism. MEDICATIONS: Medications include Requip and Zestoretic and Synthroid. ALLERGIES: There are NO KNOWN DRUG ALLERGIES. Family history, social history and review of systems I am unable to obtain from the patient. PHYSICAL EXAMINATION: Afebrile. Heart rate is 60 beats per minute, blood pressure is , respiratory rate is 18, O2 saturation is 93% on room air. There is no jugular venous distention. Chest exam reveals diminished air entry at the bases. Heart exam reveals first and second heart sounds, irregular rhythm, and a systolic murmur at the left lower sternal border. Abdomen is soft. Examination of extremities revealed bilateral 1+ pitting edema. LABS: Potassium of 4.8, creatinine of 1.4. Hemoglobin is 9.8. ASSESSMENT: 1. Atrial fibrillation with asymptomatic pauses. 2. Elevated troponin secondary to renal insufficiency. PLAN: Please continue to watch him on telemetry. Obtain a 2D echo to document his LV function. MMODL / IJN: [id number] /
[2021-07-29] MEDS: SODIUM FERRIC GLUCONAT-SUCROSE 125 MG in SODIUM CHLORIDE 0.9% 100 ML IVPB SCH (13:11)
--- NOTE | 2021-07-29 13:50 | P.PN ---
Progress Note - Text Progress Note Date: 07/29/21 Chief Complaint: Altered mental status History of presenting complaint: This is a 86-year-old patient. EMS was called by a friend. Friend told the EMS that he is known the patient for about 10 years. He found him to be confusing looking pale. Not acting right. Patient had a fall about 10 days ago went to the ER was discharged. He has not seen him for about a week. Patient's apartment is trashed and he seems to be off. Patient is slow to answer questions. Patient's found to be an acute kidney injury in the ER. Patient is able to answer questions slowly. He is hungry. He knows that in the hospital. Not able to tell me much more. They can tell the month and the year slowly. Denies any fever and chills. No cough. July 29: Patient's had episodes of sinus pause. Cardiology consulted. Bit more responsive today. Eating about 25%. Moderate pain. IV fluids Review of systems: Was done for constitutional, cardiovascular, GI, pulmonary. relevant finding as above Active Medications Acetaminophen (Acetaminophen Tab 325 Mg Tab) 650 mg PO Q6HR PRN PRN Reason: Mild Pain or Fever > 100.5 Aspirin (Aspirin 81 Mg) 81 mg PO DAILY [facility] Last Admin: 07/29/21 08:16 Dose: 81 mg Documented by: Atorvastatin Calcium (Atorvastatin 20 Mg Tab) 20 mg PO HS [facility] Last Admin: 07/28/21 20:22 Dose: 20 mg Documented by: Cyanocobalamin (Cyanocobalamin 500 Mcg Tab) 1,000 mcg PO DAILY [facility] Last Admin: 07/29/21 08:18 Dose: 1,000 mcg Documented by: Folic Acid (Folic Acid 1 Mg Tab) 1 mg PO DAILY [facility] Last Admin: 07/29/21 08:18 Dose: 1 mg Documented by: Ceftriaxone Sodium 1 gm/ (Sodium Chloride) 50 mls @ 100 mls/hr IVPB Q24HR [facility] Last Admin: 07/29/21 08:16 Dose: 100 mls/hr Documented by: Dextrose/Sodium Chloride (Dextrose 5%-1/2ns Iv Soln) 1,000 mls @ 100 mls/hr IV .Q10H [facility] Last Admin: 07/29/21 02:45 Dose: Not Given Documented by: Ferric Sodium Gluconate 125 mg (/ Sodium Chloride) 110 mls @ 100 mls/hr IVPB DAILY [facility] Stop: 07/31/21 23:59 Last Admin: 07/29/21 13:11 Dose: 100 mls/hr Documented by: Levothyroxine Sodium (Levothyroxine 75 Mcg Tab) 75 mcg PO DAILY@0630 [facility] Last Admin: 07/29/21 05:39 Dose: 75 mcg Documented by: Naloxone HCl (Naloxone 0.4 Mg/Ml 1 Ml Vial) 0.2 mg IV Q2M PRN PRN Reason: Opioid Reversal Ondansetron HCl (Ondansetron 4 Mg/2 Ml Vial) 4 mg IVP Q8HR PRN PRN Reason: Nausea And Vomiting Past medical history to include: Hypertension, hypertension hypothyroid Social history: Lives at [facility]. Patient smoked cigars from 1963 through 1993. No alcohol. Family history: Cancer Physical examination: VITAL SIGNS: 98.3, 60, 18, 160 x 42, 93% room air GENERAL: laying in bed, tired, less lethargic. EYES: Pupils equal. Conjunctiva normal. HEENT: External appearance of nose and ears normal, oral cavity dry mucous membranes decreased hygiene. NECK: JVD not raised; masses not palpable. HEART: First and second heart sounds are normal; no edema. LUNGS: Respiratory rate normal; decreased breath sounds. ABDOMEN: Soft, nontender, liver spleen not palpable, no masses palpable. PSYCH: Lethargic but is able to state that he is in the hospital, knows the year and now started this falll. MUSCULAR skeletal: Evidence of OA INVESTIGATIONS, reviewed in the clinical context: July 29: Potassium 4.8 BUN 47 creatinine 1.48 Renal ultrasound: Right kidney hydronephrosis. White count 5.8 hemoglobin 9.8 platelets 159 potassium 5 BUN 70 creatinine 1.89 Admission labs: Hemoglobin 10.8 potassium 6 BUN 77 creatinine 2.18 Troponin I 0.018, 0.034, 0.037 UA positive for leukoesterase, WBC 7 Urine drug screen positive for opiates Coronavirus [PCR is back at: Not detected EKG tracing personally reviewed by me-atrial fibrillation rate 88 Computed tomography scan of the brain: Cerebral atrophy and hydrocephalus. Chest x-ray film personally reviewed by me: No infiltrates Assessment and plan: - likely metabolic encephalopathy as by the from underlying acute kidney injury.: Slow to respond Close neuro following. IV fluids. -Acute kidney injury. Prerenal. ATN cannot be ruled out. stop Zestoretic.Renal ultrasound. Strict I's and O's. Follow labs. IV fluids. -Right hydronephrosis, cause unclear Follow clinically -Hypothyroid Synthroid 25 g daily -Suspect underlying cognitive impairment. We will further evaluate after correcting dehydration. -Possible UTI with cystitis acute IV ceftriaxone -Troponin leak in the setting of acute hemodynamic mismatch. No obvious clinical suggestion of acute coronary syndrome Encourage diet. IV fluids. Follow renal function. Speech evaluation tomorrow. For swallowing ,
[2021-07-29] MEDS: ATORVASTATIN 20 MG TAB PO SCH (20:10)
[2021-07-30] MEDS: ACETAMINOPHEN TAB 325 MG TAB PO PRN ×2 (03:54→12:32)
[2021-07-30] MEDS: LEVOTHYROXINE 75 MCG TAB PO SCH (05:30)
[2021-07-30 07:02] LABS: African American GFR (CKD) 61 (>60 ml/min/1.73 sqM); Anion Gap 6 mmol/L; Blood Urea Nitrogen 35 mg/dL (9-20); Calcium 10.2 mg/dL (8.4-10.2); Carbon Dioxide 21 mmol/L (22-30); Chloride 113 mmol/L (98-107); Glucose 107 mg/dL (74-99); Non-African American GFR(CKD) 53 (>60 ml/min/1.73 sqM); Potassium 4.2 mmol/L (3.5-5.1); Sodium 140 mmol/L (137-145)
--- NOTE | 2021-07-30 10:11 | P.PN ---
Subjective Progress Note Date: 07/30/21 HISTORY OF PRESENT ILLNESS: This is an 86-year-old male who is admitted to hospital secondary to altered mental status. Patient has a history of atrial fibrillation, hypertension, and hypothyroidism. Patient examined this morning at the bedside. Patient denies chest pain or pressure. He denies shortness of breath. Telemetry reviewed revealing sinus mechanism with blocked PACs causing compensatory pauses. PHYSICAL EXAM: VITAL SIGNS: Reviewed. GENERAL: Well-developed in no acute distress. NECK: Supple. No JVD or thyromegaly LUNGS: Respirations even and unlabored. Lungs diminished to auscultation bilaterally. HEART: Regular rate and rhythm. S1 and S2 heard. Systolic murmur noted. EXTREMITIES: Normal range of motion. No clubbing or cyanosis. Peripheral pulses intact. Trace lower extremity edema ASSESSMENT: Altered mental status History of atrial fibrillation, not on long-term anticoagulation Acute kidney injury Abnormal troponins, secondary to above, no evidence of acute coronary syndrome Hypertension Hypothyroidism PLAN: Continue current cardiac medications No further inpatient recommendations from a cardiac perspective Patient is stable from a cardiac standpoint. We will sign off. Please reconsult if needed. Nurse practitioner note has been reviewed by physician. Signing provider agrees with the documented findings, assessment, and plan of care. Objective - Vital Signs Vital signs: Vital Signs Temp 99.1 F 07/30/21 08:05 Pulse 64 07/30/21 08:05 Resp 16 07/30/21 08:05 BP 116/55 07/30/21 08:05 Pulse Ox 96 07/30/21 08:05 Intake & Output 07/29/21 07/30/21 07/30/21 18:59 06:59 18:59 Output Total 1200 Balance -1200 Output: Urine 1200 Other: # Voids 4 4 # Bowel Movements 0 - Labs CBC & Chem 7: 07/28/21 03:58 07/30/21 06:17 Labs: Abnormal Lab Results - Last 24 Hours (Table) 07/30/21 Range/Units 06:17 Chloride 113 H (98-107) mmol/L Carbon Dioxide 21 L (22-30) mmol/L BUN 35 H (9-20) mg/dL Glucose 107 H (74-99) mg/dL
[2021-07-30] MEDS: ASPIRIN 81 MG PO SCH (10:31)
[2021-07-30] MEDS: CYANOCOBALAMIN 500 MCG TAB PO SCH (10:31)
[2021-07-30] MEDS: FOLIC ACID 1 MG TAB PO SCH (10:31)
[2021-07-30] MEDS: SODIUM FERRIC GLUCONAT-SUCROSE 125 MG in SODIUM CHLORIDE 0.9% 100 ML IVPB SCH (10:43)
[2021-07-30] MEDS: DEXTROSE 5%-0.45% NACL 1,000 ML IV SCH ×2 (12:39→17:19)
--- NOTE | 2021-07-30 16:16 | P.PN ---
Progress Note - Text Progress Note Date: 07/30/21 Chief Complaint: Altered mental status History of presenting complaint: This is a 86-year-old patient. EMS was called by a friend. Friend told the EMS that he is known the patient for about 10 years. He found him to be confusing looking pale. Not acting right. Patient had a fall about 10 days ago went to the ER was discharged. He has not seen him for about a week. Patient's apartment is trashed and he seems to be off. Patient is slow to answer questions. Patient's found to be an acute kidney injury in the ER. Patient is able to answer questions slowly. He is hungry. He knows that in the hospital. Not able to tell me much more. They can tell the month and the year slowly. Denies any fever and chills. No cough. July 29: Patient's had episodes of sinus pause. Cardiology consulted. Bit more responsive today. Eating about 25%. Moderate pain. IV fluids July 30: Answering questions more appropriately. He states that at baseline does use a wheelchair. He wants his friend to come and visit him. Seen by a therapist. Recommended ground textured diet with nectar thick liquids. EEG ordered by neurology. Review of systems: Was done for constitutional, cardiovascular, GI, pulmonary. relevant finding as above Active Medications Acetaminophen (Acetaminophen Tab 325 Mg Tab) 650 mg PO Q6HR PRN PRN Reason: Mild Pain or Fever > 100.5 Last Admin: 07/30/21 12:32 Dose: 650 mg Documented by: Aspirin (Aspirin 81 Mg) 81 mg PO DAILY [facility] Last Admin: 07/30/21 10:31 Dose: 81 mg Documented by: Atorvastatin Calcium (Atorvastatin 20 Mg Tab) 20 mg PO [facility] Last Admin: 07/29/21 20:10 Dose: 20 mg Documented by: Cyanocobalamin (Cyanocobalamin 500 Mcg Tab) 1,000 mcg PO DAILY [facility] Last Admin: 07/30/21 10:31 Dose: 1,000 mcg Documented by: Folic Acid (Folic Acid 1 Mg Tab) 1 mg PO DAILY [facility] Last Admin: 07/30/21 10:31 Dose: 1 mg Documented by: Ceftriaxone Sodium 1 gm/ (Sodium Chloride) 50 mls @ 100 mls/hr IVPB Q24HR [facility] Last Admin: 07/30/21 12:30 Dose: 100 mls/hr Documented by: Dextrose/Sodium Chloride (Dextrose 5%-1/2ns Iv Soln) 1,000 mls @ 100 mls/hr IV .Q10H [facility] Last Admin: 07/30/21 12:39 Dose: 100 mls/hr Documented by: Ferric Sodium Gluconate 125 mg (/ Sodium Chloride) 110 mls @ 100 mls/hr IVPB DAILY [facility] Stop: 07/31/21 23:59 Last Admin: 07/30/21 10:43 Dose: 100 mls/hr Documented by: Levothyroxine Sodium (Levothyroxine 75 Mcg Tab) 75 mcg PO DAILY@0630 [facility] Last Admin: 07/30/21 05:30 Dose: 75 mcg Documented by: Naloxone HCl (Naloxone 0.4 Mg/Ml 1 Ml Vial) 0.2 mg IV Q2M PRN PRN Reason: Opioid Reversal Ondansetron HCl (Ondansetron 4 Mg/2 Ml Vial) 4 mg IVP Q8HR PRN PRN Reason: Nausea And Vomiting Past medical history to include: Hypertension, hypertension hypothyroid Social history: Lives at [facility]. Patient smoked cigars from 1963 through 1993. No alcohol. Family history: Cancer Physical examination: VITAL SIGNS: 98.3, 65, 17, 145/57, 96% room air GENERAL: laying in bed, more awake, comfortable EYES: Pupils equal. Conjunctiva normal. HEENT: External appearance of nose and ears normal, oral cavity dry mucous membranes decreased hygiene. NECK: JVD not raised; masses not palpable. HEART: First and second heart sounds are normal; no edema. LUNGS: Respiratory rate normal; decreased breath sounds. ABDOMEN: Soft, nontender, liver spleen not palpable, no masses palpable. PSYCH: More awake and answering questions more appropriately. MUSCULAR skeletal: Evidence of OA INVESTIGATIONS, reviewed in the clinical context: July 30: Potassium 4.2 BUN 35 creatinine 1.24 July 29: Potassium 4.8 BUN 47 creatinine 1.48 Renal ultrasound: Right kidney hydronephrosis. White count 5.8 hemoglobin 9.8 platelets 159 potassium 5 BUN 70 creatinine 1.89 Admission labs: Hemoglobin 10.8 potassium 6 BUN 77 creatinine 2.18 Troponin I 0.018, 0.034, 0.037 UA positive for leukoesterase, WBC 7 Urine drug screen positive for opiates Coronavirus [PCR is back at: Not detected EKG tracing personally reviewed by me-atrial fibrillation rate 88 Computed tomography scan of the brain: Cerebral atrophy and hydrocephalus. Chest x-ray film personally reviewed by me: No infiltrates Assessment and plan: - likely metabolic encephalopathy as by the from underlying acute kidney injury.: Improvement Close neuro following. IV fluids. -Acute kidney injury. Prerenal. ATN cannot be ruled out. stop Zestoretic.Renal ultrasound. Strict I's and O's. Follow labs. IV fluids. -Right hydronephrosis, cause unclear, suspected to chronic Follow clinically -Hypothyroid Synthroid 25 g daily -Suspect underlying cognitive impairment. We will further evaluate after correcting dehydration. -Possible UTI with cystitis acute IV ceftriaxone -Troponin leak in the setting of acute hemodynamic mismatch. No obvious clinical suggestion of acute coronary syndrome -POA: John Holbrook Diet changed to a ground diet with nectar thick liquids.. manager universal is talking with POA. For discharge planning. ,
--- NOTE | 2021-07-30 17:14 | EEG ---
ELECTROENCEPHALOGRAM REPORT DATE OF SERVICE: 07/30/2021 PREAMBLE: This is an 86-year-old male with altered mental status. EEG FINDINGS: This is a 21 channel digital EEG recording with video component, utilizing 10-20 international system with referential and bipolar montages. The background consists of well-developed, moderately well regulated, predominantly 8-9 hertz alpha, which is posterior dominant and seems to be reactive to eye opening and closing. There is frequent myogenic artifact seen in bilateral temporal regions, left much more than right. A photic driving response was not clearly seen. Drowsiness was seen with appearance of bilaterally symmetric theta frequency rhythm, but deeper stages of sleep were not seen. No focal or generalized epileptiform activity was seen. IMPRESSION: This is a mildly abnormal EEG due to the presence of mild intermittent slowing in bitemporal region, left more than right. This could be artifactual from movement artifact, although focal slowing usually suggests underlying focal cortical neural dysfunction. No epileptiform activity was seen. MMODL / IJN: [id number] / [facility]ALTHFlori
[2021-07-30] MEDS: ENOXAPARIN 40 MG/0.4 ML SYRINGE SQ SCH (17:18)
--- NOTE | 2021-07-30 18:19 | PN ---
Pt was not seen on this day. MTDD
[2021-07-30] MEDS: ATORVASTATIN 20 MG TAB PO SCH (21:50)
[2021-07-31 06:38] LABS: African American GFR (CKD) 65 (>60 ml/min/1.73 sqM); Anion Gap 5 mmol/L; Blood Urea Nitrogen 29 mg/dL (9-20); Calcium 10.1 mg/dL (8.4-10.2); Carbon Dioxide 22 mmol/L (22-30); Chloride 112 mmol/L (98-107); Glucose 81 mg/dL (74-99); Non-African American GFR(CKD) 56 (>60 ml/min/1.73 sqM); Potassium 4.2 mmol/L (3.5-5.1); Sodium 139 mmol/L (137-145)
[2021-07-31] MEDS: LEVOTHYROXINE 75 MCG TAB PO SCH (07:58)
[2021-07-31] MEDS: ASPIRIN 81 MG PO SCH (11:06)
[2021-07-31] MEDS: FOLIC ACID 1 MG TAB PO SCH (11:11)
[2021-07-31] MEDS: CYANOCOBALAMIN 500 MCG TAB PO SCH (11:11)
[2021-07-31] MEDS: SODIUM FERRIC GLUCONAT-SUCROSE 125 MG in SODIUM CHLORIDE 0.9% 100 ML IVPB SCH (11:21)
[2021-07-31] MEDS: ENOXAPARIN 40 MG/0.4 ML SYRINGE SQ SCH (11:28)
--- NOTE | 2021-07-31 15:33 | PN ---
PROGRESS NOTE Patient is seen for followup for acute kidney injury. Patient's renal function has improved, serum creatinine down to 1.18. He has been maintained on IV fluids. PHYSICAL EXAMINATION: On examination today, blood pressure 145/57, heart rate 64 per minute. Patient is afebrile. Examination of the heart S1, S2. Examination of the lungs, bilateral breath sounds are heard. Abdomen is soft, nontender. Examination of lower extremities shows no significant edema. LAB: Show sodium 139, potassium 4.2, chloride 112, BUN 29, creatinine 1.18. ASSESSMENT: 1. Acute kidney injury, prerenal, currently improved. 2. Volume depletion, status post IV fluids. 3. Hyperkalemia, now improved, associated with acute kidney injury, use of ASHELY inhibitors. 4. Mental status changes associated with volume depletion and renal failure, now improved. 5. Iron deficiency status post IV iron. PLAN: Continue to encourage increased oral intake may DC IV fluids. MMODL / IJN: [id number] /
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
--- NOTE | 2021-07-31 17:26 | P.PN ---
Subjective Progress Note Date: 07/31/21 Patient was initially seen by Dr. Romel Davenport. Please refer to his note for details. Patient is a 86-year-old male, who had a stroke code activated while in the hospital on 07/28/2021. Patient does have a history of skin cancer on the face, for which he has received radiation therapy. Patient has some baseline facial asymmetry from scarring. Patient also has history of hip replacement. He is paraplegic. Patient has no obvious weakness of the upper extremities or any speech difficulty. Patient's power of personal injury attorney has recommended no workup. Patient has right cerebellar vermis malformation. EEG was performed for altered mental status off and on for last 2 weeks. Telemetry monitoring showing sinus rhythm, with PSVT and sinus bradycardia. Patient at present feels "lousy". Objective - Vital Signs Vital signs: Vital Signs Temp 97.8 F 07/31/21 07:20 Pulse 72 07/31/21 07:20 Resp 18 07/31/21 07:20 BP 134/44 07/31/21 07:20 Pulse Ox 92 L 07/31/21 07:20 Intake & Output 07/30/21 07/31/21 07/31/21 18:59 06:59 18:59 Output Total 300 Balance -300 Weight 81.193 kg Output: Urine 300 Other: Voiding Method External Catheter # Voids 2 # Bowel Movements 0 - Exam GENERAL: The patient is lying in bed and is not in acute distress. NEUROLOGICAL: Higher mental function: The patient is awake, alert, oriented to self, place and time. He is able to name objects correctly (pen and watch) Patient is follow ing simple commands. No aphasia and no neglect. Cranial nerves: The right eye is opaque in coloration (old) and would be shut and is able to open it. Pupils are round, equal and reactive to light. Visual lee are full. Extraocular movement is intact no nystagmus is noted. Facial sensation is normal to touch throughout. The facial strength is right lower facial droop with scar over the right (has hx of skin cancer s/p radiation). 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 Tongue is midline and moved [id number] without any difficulty. No dysarthria is noted. Shoulder shrug is normal bilaterally. Motor: Gait is deferred since is wheel chair bound. The strength is 5 over 5 throughout uppers while lowers could not assess because of his pain. He was able to have extend and flex his left knee while has slight movement over the right but was in pain (Baseline is wheel chair bound and has hx of weakness) and when I tried moving his leg he was in pain. Has atrophy over the right lower side compared to left. Normal tone in uppers. Cerebellum: Normal finger to nose bilaterally. Sensation: Sensation is normal to touch throughout. Reflexes (right/left): 2+ throughout uppers while lower could not assess because of pain. Plantars are mute bilaterally. - Labs CBC & Chem 7: 07/28/21 03:58 07/31/21 05:42 Labs: Abnormal Lab Results - Last 24 Hours (Table) 07/31/21 Range/Units 05:42 Chloride 112 H (98-107) mmol/L BUN 29 H (9-20) mg/dL Assessment and Plan Assessment: Altered mental status possibly a component of underlying urinary tract infection as well as metabolic encephalopathy--currently mentation is improving. 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 Cannot rule out finding was not result of hx of facial radiation. Low normal Vitamin B12 and folate level. 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 Plan: * No definitive evidence of a new stroke. Patient's right facial asymmetry is chronic from previous radiation for skin cancers. Patient denies of strokelike symptoms. Continue aspirin 81 mg and Lipitor. Patient's power of personal injury attorney Mr. Lopez had previously stated that he did not want to pursue with further workup for this stroke/TIA. He does not want to get MRI, carotid duplex, 2-D echo or lipid panel or vascular surgery team. * Because of low normal vitamin B12 (314) and folate (5.6): Continue on Vitamin B12 1000mcg daily and folate 1mg daily. * TSH 1.63 normal. * Continue aspirin 81 mg and statin 20 mg (both started during this hospital stay) which should help with the carotid stenosis * EEG was mildly abnormal due to presence of mild intermittent slowing in bitemporal region, left more than right. This could be artifactual from movement artifact, although focal slowing usually suggest underlying focal cortical neuronal dysfunction. No epileptiform activity was seen. No indication for AED. * On cardiac monitoring, showing sinus rhythm, with PSVT and sinus bradycardia. * Recommend patient to follow up with the neurosurgery team regarding ?venous malformation seen on the CTA, consider diagnostic cerebral angiogram as outpatient (for diagnostic cereberal angiogram can contact the interventional neurologist at [phone] at [facility]) as well as consider further work-up for radiographic normal pressure hydrocephalus as outpatient (In my opinoin, I would avoid surgery for ?Normal pressure Hydrocephalus since patient is non-ambulatory at baseline and has been thru so many surgeries in the past but will defer it up to patient and power of personal injury attorney). * We'll defer the rest of the medical management to the primary team. * Upon discharge the patient needs to follow-up with a neurologist in outpatient within 1-2 weeks. * Neurology will sign off. Please reconsult neurology if any concerns. WORK-UP: Ammonia level is less than 9 Serum B12 is a 314 which is low normal. Serum folate is 5.6 which is low normal. HbA1c is 4.8. CT of the head ordered by the ED team and it's reported as cerebral atrophy and hydrocephalus. Right maxillary sinusitis. No change. No acute abnormality. Repeat CT of the head is reported as she will atrophy. No acute intracranial abnormality. No change compared to yesterday. I personally reviewed the CT of the head and I don't appreciate any acute or subacute ischemia. I feel the patient has generalized atrophy but the patient does have hydrocephalus and I feel that ventricles are dilated throughout lateral third and fourth ventricle more than the atrophy. CT angiography of the head and neck was reported as atherosclerotic vascular disease. There is stenosis at the origin of both internal carotid arteries as above. No evidence of hemodynamic intracranial arterial stenosis. 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 Cerebral atrophy. In the body of the report it is mentioned there is estimated 60% diameter stenosis at the origin of the right internal carotid artery and 30% stenosis of the left internal carotid artery.
[2021-07-31] MEDS: CEPHALEXIN 250 MG CAP PO SCH ×2 (17:47→21:39)
[2021-07-31] MEDS: ATORVASTATIN 20 MG TAB PO SCH (21:39)
[2021-08-01] MEDS: LEVOTHYROXINE 75 MCG TAB PO SCH (06:07)
[2021-08-01] MEDS: CEPHALEXIN 250 MG CAP PO SCH ×4 (09:36→20:35)
[2021-08-01] MEDS: FOLIC ACID 1 MG TAB PO SCH (09:37)
[2021-08-01] MEDS: ASPIRIN 81 MG PO SCH (09:37)
[2021-08-01] MEDS: CYANOCOBALAMIN 500 MCG TAB PO SCH (09:37)
[2021-08-01] MEDS: ENOXAPARIN 40 MG/0.4 ML SYRINGE SQ SCH (09:37)
--- NOTE | 2021-08-01 15:47 | P.PN ---
Subjective Progress Note Date: 08/01/21 08/01/2021: Patient is laying in the bed. He states he feels "uncomfortable, because right leg hurts". He refers to the right foot in the knee. He wants to straighten his back. Patient currently not on any pain medication. 07/31/2021: Patient was initially seen by Dr. Romel Davenport. Please refer to his note for details. Patient is a 86-year-old male, who had a stroke code activated while in the hosp ital on 07/28/2021. Patient does have a history of skin cancer on the face, for which he has received radiation therapy. Patient has some baseline facial asymmetry from scarring. Patient also has history of hip replacement. He is paraplegic. Patient has no obvious weakness of the upper extremities or any speech difficulty. Patient's power of civil litigation attorney has recommended no workup. Patient has right cerebellar vermis malformation. EEG was performed for altered mental status off and on for last 2 weeks. Telemetry monitoring showing sinus rhythm, with PSVT and sinus bradycardia. Patient at present feels "lousy". Objective - Vital Signs Vital signs: Vital Signs Temp 98.2 F 08/01/21 12:40 Pulse 67 08/01/21 12:40 Resp 16 08/01/21 12:40 BP 129/58 08/01/21 12:40 Pulse Ox 94 L 08/01/21 12:40 Intake & Output 07/31/21 08/01/21 08/01/21 18:59 06:59 18:59 Other: Voiding Method Diaper Diaper External Catheter # Voids 3 4 - Exam GENERAL: The patient is lying in bed and is not in acute distress. NEUROLOGICAL: Higher mental function: The patient is awake, alert, oriented to self, place and time. He is able to name objects correctly (pen and watch) Patient is following simple commands. No aphasia and no neglect. Cranial nerves: The right eye is opaque in coloration (old) and would be shut and is able to open it. Pupils are round, equal and reactive to light. Visual lee are full. Extraocular movement is intact no nystagmus is noted. Facial sensation is normal to touch throughout. The facial strength is right lower facial droop with scar over the right (has hx of skin cancer s/p radiation). 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 Tongue is midline and moved [id number] without any difficulty. No dysarthria is noted. Shoulder shrug is normal bilaterally. Motor: Gait is deferred since is wheel chair bound. The strength is 5 over 5 th roughout uppers while lowers could not assess because of his pain. He was able to have extend and flex his left knee while has slight movement over the right but was in pain (Baseline is wheel chair bound and has hx of weakness) and when I tried moving his leg he was in pain. Has atrophy over the right lower side compared to left. Normal tone in uppers. Cerebellum: Normal finger to nose bilaterally. Sensation: Sensation is normal to touch throughout. Reflexes (right/left): 2+ throughout uppers while lower could not assess because of pain. Plantars are mute bilaterally. - Labs CBC & Chem 7: 07/28/21 03:58 07/31/21 05:42 Assessment and Plan Assessment: Altered mental status possibly due to mild encephalopathy from acute UTI. Improving. 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 Cannot rule out finding was not result of hx of facial radiation. Low normal Vitamin B12 and folate level. 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 Plan: * No definitive evidence of a new stroke. Patient's right facial asymmetry is chronic from previous radiation for skin cancers. Patient denies of strokelike symptoms. Continue aspirin 81 mg and Lipitor. Patient's power of civil litigation attorney Mr. Lopez had previously stated that he did not want to pursue with further workup for this stroke/TIA. He does not want to get MRI, carotid duplex, 2-D echo or lipid panel or vascular surgery team. * Because of low normal vitamin B12 (314) and folate (5.6): Continue on Vitamin B12 1000mcg daily and folate 1mg daily. * TSH 1.63 normal. * Continue aspirin 81 mg and statin 20 mg (both started during this hospital stay) which should help with the carotid stenosis * EEG was mildly abnormal due to presence of mild intermittent slowing in bitemporal region, left more than right. This could be artifactual from movement artifact, although focal slowing usually suggest underlying focal cortical neuronal dysfunction. No epileptiform activity was seen. No indication for AED. * On cardiac monitoring, showing sinus rhythm, with PSVT and sinus bradycardia. * Recommend patient to follow up with the neurosurgery team regarding ?venous malformation seen on the CTA, consider diagnostic cerebral angiogram as outpatient (for diagnostic cereberal angiogram can contact the interventional neurologist at [phone] at [facility]) as well as consider further work-up for radiographic normal pressure hydrocephalus as outpatient (In my opinoin, I would avoid surgery for ?Normal pressure Hydrocephalus since patient is non-ambulatory at baseline and has been thru so many surgeries in the past but will defer it up to patient and power of civil litigation attorney). * We'll defer the rest of the medical management to the primary team. * Upon discharge the patient needs to follow-up with a neurologist in outpatient within 1-2 weeks. * Patient appears to be in pain. Suggest pain control, consider pain consult. Neurology will sign off. Please reconsult neurology if any concerns. WORK-UP: Ammonia level is less than 9 Serum B12 is a 314 which is low normal. Serum folate is 5.6 which is low normal. HbA1c is 4.8. CT of the head ordered by the ED team and it's reported as cerebral atrophy and hydrocephalus. Right maxillary sinusitis. No change. No acute abnormality. Repeat CT of the head is reported as she will atrophy. No acute intracranial abnormality. No change compared to yesterday. I personally reviewed the CT of the head and I don't appreciate any acute or subacute ischemia. I feel the patient has generalized atrophy but the patient does have hydrocephalus and I feel that ventricles are dilated throughout lateral third and fourth ventricle more than the atrophy. CT angiography of the head and neck was reported as atherosclerotic vascular disease. There is stenosis at the origin of both internal carotid arteries as above. No evidence of hemodynamic intracranial arterial stenosis. 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 Cerebral atrophy. In the body of the report it is mentioned there is estimated 60% diameter stenosis at the origin of the right internal carotid artery and 30% stenosis of the left internal carotid artery.
--- NOTE | 2021-08-01 20:21 | PN ---
PROGRESS NOTE Patient is seen for followup for acute kidney injury. Patient's renal function has improved; creatinine now down to about 1.18. He is status post IV fluids, maintained on IV iron for severe iron deficiency. On examination, blood pressure was 133/54, heart rate of 67 per minute. He is afebrile. EXAMINATION OF THE HEART: S1 and S2. EXAMINATION OF LUNGS: Bilateral breath sounds are heard. Abdomen is soft, non-tender. Examination of lower extremities shows no significant edema. GENERAL ACCOUNTING CLERK exam shows patient does not move his lower extremities much. Labs show sodium 139, potassium 4.2, chloride 112, BUN 29, creatinine 1.18 from 07/31/2021. ASSESSMENT: 1. Acute kidney injury, prerenal, currently improved, status post IV fluids. 2. Hypovolemia, resolved. 3. Hyperkalemia associated with acute kidney injury, use of ASHELY inhibitors, now improved. 4. Mental status changes, being followed by Neurology, somewhat improved. 5. Iron deficiency, status post IV iron. PLAN: Continue to encourage increased oral intake. MMODL / IJN: [id number] /
[2021-08-01] MEDS: ATORVASTATIN 20 MG TAB PO SCH (20:35)
--- NOTE | 2021-08-01 21:22 | P.PN ---
Progress Note - Text Progress Note Date: 08/01/21 Chief Complaint: Altered mental status History of presenting complaint: This is a 86-year-old patient. EMS was called by a friend. Friend told the EMS that he is known the patient for about 10 years. He found him to be confusing looking pale. Not acting right. Patient had a fall about 10 days ago went to the ER was discharged. He has not seen him for about a week. Patient's apartment is trashed and he seems to be off. Patient is slow to answer questions. Patient's found to be an acute kidney injury in the ER. Patient is able to answer questions slowly. He is hungry. He knows that in the hospital. Not able to tell me much more. They can tell the month and the year slowly. Denies any fever and chills. No cough. July 29: Patient's had episodes of sinus pause. Cardiology consulted. Bit more responsive today. Eating about 25%. Moderate pain. IV fluids July 30: Answering questions more appropriately. He states that at baseline does use a wheelchair. He wants his friend to come and visit him. Seen by a therapist. Recommended ground textured diet with nectar thick liquids. EEG ordered by neurology. July 31: Laying in bed. Tired. poker manager not able to return as POA. Looking into possible rehab. Eating about 25%. August 01: Oral intake better. poker manager [facility]. It seems patient is less active than his baseline. He was able to feed himself. Started with a stent left. Manage his own affairs. . Looking into rehab Review of systems: Was done for constitutional, cardiovascular, GI, pulmonary. relevant finding as above Active Medications Acetaminophen (Acetaminophen Tab 325 Mg Tab) 650 mg PO Q6HR PRN PRN Reason: Mild Pain or Fever > 100.5 Last Admin: 07/30/21 12:32 Dose: 650 mg Documented by: Aspirin (Aspirin 81 Mg) 81 mg PO DAILY [facility] Last Admin: 08/01/21 09:37 Dose: 81 mg Documented by: Atorvastatin Calcium (Atorvastatin 20 Mg Tab) 20 mg PO HS [facility] Last Admin: 08/01/21 20:35 Dose: 20 mg Documented by: Cephalexin (Cephalexin 250 Mg Cap) 250 mg PO QID [facility] Last Admin: 08/01/21 20:35 Dose: 250 mg Documented by: Cyanocobalamin (Cyanocobalamin 500 Mcg Tab) 1,000 mcg PO DAILY [facility] Last Admin: 08/01/21 09:37 Dose: 1,000 mcg Documented by: Enoxaparin Sodium (Enoxaparin 40 Mg/0.4 Ml Syringe) 40 mg SQ DAILY [facility] Last Admin: 08/01/21 09:37 Dose: 40 mg Documented by: Folic Acid (Folic Acid 1 Mg Tab) 1 mg PO DAILY [facility] Last Admin: 08/01/21 09:37 Dose: 1 mg Documented by: Levothyroxine Sodium (Levothyroxine 75 Mcg Tab) 75 mcg PO DAILY@0630 [facility] Last Admin: 08/01/21 06:07 Dose: 75 mcg Documented by: Naloxone HCl (Naloxone 0.4 Mg/Ml 1 Ml Vial) 0.2 mg IV Q2M PRN PRN Reason: Opioid Reversal Ondansetron HCl (Ondansetron 4 Mg/2 Ml Vial) 4 mg IVP Q8HR PRN PRN Reason: Nausea And Vomiting Past medical history to include: Hypertension, hypertension hypothyroid Social history: Lives at [facility]. Patient smoked cigars from 1963 through 1993. No alcohol. Family history: Cancer Physical examination: VITAL SIGNS: 98.2, 67, 16, 1 29 x 58, 94% room air GENERAL: laying in bed, tired EYES: Pupils equal. Conjunctiva normal. HEENT: External appearance of nose and ears normal, oral cavity dry mucous m embranes NECK: JVD not raised; masses not palpable. HEART: First and second heart sounds are normal; no edema. LUNGS: Respiratory rate normal; decreased breath sounds. ABDOMEN: Soft, nontender, liver spleen not palpable, no masses palpable. PSYCH: Answering simple questions. MUSCULAR skeletal: Evidence of OA INVESTIGATIONS, reviewed in the clinical context: July 31: Potassium 4.2 creatinine 1.18 July 30: Potassium 4.2 BUN 35 creatinine 1.24 July 29: Potassium 4.8 BUN 47 creatinine 1.48 B12 3.4, folate 5.6, TSH 1.6 Iron 16 TIBC 206% saturation 7.8 transferred and 147 Renal ultrasound: Right kidney hydronephrosis. White count 5.8 hemoglobin 9.8 platelets 159 potassium 5 BUN 70 creatinine 1.89 Admission labs: Hemoglobin 10.8 potassium 6 BUN 77 creatinine 2.18 Troponin I 0.018, 0.034, 0.037 UA positive for leukoesterase, WBC 7 Urine drug screen positive for opiates Coronavirus [PCR is back at: Not detected EKG tracing personally reviewed by me-atrial fibrillation rate 88 Computed tomography scan of the brain: Cerebral atrophy and hydrocephalus. Chest x-ray film personally reviewed by me: No infiltrates Assessment and plan: - metabolic encephalopathy as by the from underlying acute kidney injury.: Improvement Close neuro following. IV fluids. -Acute kidney injury. Prerenal. Improving stop Zestoretic.Renal ultrasound. Strict I's and O's. Follow labs. IV fluids. -Right hydronephrosis, cause unclear, suspected to chronic Follow clinically -Hypothyroid Synthroid 25 g daily -Moderate cognitive impairment -Possible UTI with cystitis acute IV ceftriaxone -Troponin leak in the setting of acute hemodynamic mismatch. No obvious clinical suggestion of acute coronary syndrome -Acute on chronic medical debility. PT OT. -POA: John Holbrook Continue current medication. Looking for inpatient rehab. Follow
[2021-08-01] MEDS: ACETAMINOPHEN TAB 325 MG TAB PO PRN (21:32)
[2021-08-02] MEDS: LEVOTHYROXINE 75 MCG TAB PO SCH (05:46)
[2021-08-02 06:45] LABS: African American GFR (CKD) 59 (>60 ml/min/1.73 sqM); Anion Gap 6 mmol/L; Blood Urea Nitrogen 29 mg/dL (9-20); Calcium 10.6 mg/dL (8.4-10.2); Carbon Dioxide 23 mmol/L (22-30); Chloride 111 mmol/L (98-107); Glucose 79 mg/dL (74-99); Non-African American GFR(CKD) 51 (>60 ml/min/1.73 sqM); Potassium 4.5 mmol/L (3.5-5.1); Sodium 140 mmol/L (137-145)
[2021-08-02] MEDS: ASPIRIN 81 MG PO SCH (08:07)
[2021-08-02] MEDS: CYANOCOBALAMIN 500 MCG TAB PO SCH (08:07)
[2021-08-02] MEDS: ENOXAPARIN 40 MG/0.4 ML SYRINGE SQ SCH (08:07)
[2021-08-02] MEDS: CEPHALEXIN 250 MG CAP PO SCH ×4 (08:07→20:10)
[2021-08-02] MEDS: FOLIC ACID 1 MG TAB PO SCH (08:07)
[2021-08-02 19:46] VITALS: RESP 17
[2021-08-02] MEDS: ATORVASTATIN 20 MG TAB PO SCH (20:10)
--- NOTE | 2021-08-03 00:28 | P.PN ---
Progress Note - Text Progress Note Date: 08/03/21 Chief Complaint: Altered mental status History of presenting complaint: This is a 86-year-old patient. EMS was called by a friend. Friend told the EMS that he is known the patient for about 10 years. He found him to be confusing looking pale. Not acting right. Patient had a fall about 10 days ago went to the ER was discharged. He has not seen him for about a week. Patient's apartment is trashed and he seems to be off. Patient is slow to answer questions. Patient's found to be an acute kidney injury in the ER. Patient is able to answer questions slowly. He is hungry. He knows that in the hospital. Not able to tell me much more. They can tell the month and the year slowly. Denies any fever and chills. No cough. July 29: Patient's had episodes of sinus pause. Cardiology consulted. Bit more responsive today. Eating about 25%. Moderate pain. IV fluids July 30: Answering questions more appropriately. He states that at baseline does use a wheelchair. He wants his friend to come and visit him. Seen by a therapist. Recommended ground textured diet with nectar thick liquids. EEG ordered by neurology. July 31: Laying in bed. Tired. clinical manager home care not able to return as POA. Looking into possible rehab. Eating about 25%. August 01: Oral intake better. clinical manager home care spoke to the [facility]. It seems patient is less active than his baseline. He was able to feed himself. Started with a stent left. Manage his own affairs. . Looking into rehab August 02: Patient's laying in bed. Tired. Requiring assistance. Spoke to the physician from the. Review from patient's insurance company. Patient has a baseline is nonambulatory. Still not qualify for rehab. Spoke to the rn case manager hospice and child welfare social worker. Patient's POA still can't be reached. Patient will need to go back to his place with increased assistance. Review of systems: Was done for constitutional, cardiovascular, GI, pulmonary. relevant finding as above Active Medications Acetaminophen (Acetaminophen Tab 325 Mg Tab) 650 mg PO Q6HR PRN PRN Reason: Mild Pain or Fever > 100.5 Last Admin: 08/01/21 21:32 Dose: 650 mg Documented by: Aspirin (Aspirin 81 Mg) 81 mg PO DAILY [facility] Last Admin: 08/02/21 08:07 Dose: 81 mg Documented by: Atorvastatin Calcium (Atorvastatin 20 Mg Tab) 20 mg PO HS [facility] Last Admin: 08/02/21 20:10 Dose: 20 mg Documented by: Cephalexin (Cephalexin 250 Mg Cap) 250 mg PO QID [facility] Last Admin: 08/02/21 20:10 Dose: 250 mg Documented by: Cyanocobalamin (Cyanocobalamin 500 Mcg Tab) 1,000 mcg PO DAILY [facility] Last Admin: 08/02/21 08:07 Dose: 1,000 mcg Documented by: Enoxaparin Sodium (Enoxaparin 40 Mg/0.4 Ml Syringe) 40 mg SQ DAILY [facility] Last Admin: 08/02/21 08:07 Dose: 40 mg Documented by: Folic Acid (Folic Acid 1 Mg Tab) 1 mg PO DAILY [facility] Last Admin: 08/02/21 08:07 Dose: 1 mg Documented by: Levothyroxine Sodium (Levothyroxine 75 Mcg Tab) 75 mcg PO DAILY@0630 [facility] Last Admin: 08/02/21 05:46 Dose: 75 mcg Documented by: Naloxone HCl (Naloxone 0.4 Mg/Ml 1 Ml Vial) 0.2 mg IV Q2M PRN PRN Reason: Opioid Reversal Ondansetron HCl (Ondansetron 4 Mg/2 Ml Vial) 4 mg IVP Q8HR PRN PRN Reason: Nausea And Vomiting Ropinirole HCl (Ropinirole Hcl 1 Mg Tab) 1 mg PO HS [facility] Last Admin: 08/02/21 20:10 Dose: 1 mg Documented by: Past medical history to include: Hypertension, hypertension hypothyroid Social history: Lives at [facility]. Patient smoked cigars from 1963 through 1993. No alcohol. Family history: Cancer Physical examination: VITAL SIGNS: 97.4, 65, 16, 133 with 59, 95% room air GENERAL: laying in bed, tired EYES: Pupils equal. Conjunctiva normal. HEENT: External appearance of nose and ears normal, oral cavity dry mucous membranes NECK: JVD not raised; masses not palpable. HEART: First and second heart sounds are normal; no edema. LUNGS: Respiratory rate normal; decreased breath sounds. ABDOMEN: Soft, nontender, liver spleen not palpable, no masses palpable. PSYCH: Answering simple questions. MUSCULAR skeletal: Evidence of OA INVESTIGATIONS, reviewed in the clinical context: August 02: Potassium 4.5 BUN 29 creatinine 1.28 July 31: Potassium 4.2 creatinine 1.18 July 30: Potassium 4.2 BUN 35 creatinine 1.24 July 29: Potassium 4.8 BUN 47 creatinine 1.48 B12 3.4, folate 5.6, TSH 1.6 Iron 16 TIBC 206% saturation 7.8 transferred and 147 Renal ultrasound: Right kidney hydronephrosis. White count 5.8 hemoglobin 9.8 platelets 159 potassium 5 BUN 70 creatinine 1.89 Admission labs: Hemoglobin 10.8 potassium 6 BUN 77 creatinine 2.18 Troponin I 0.018, 0.034, 0.037 UA positive for leukoesterase, WBC 7 Urine drug screen positive for opiates Coronavirus [PCR is back at: Not detected EKG tracing personally reviewed by me-atrial fibrillation rate 88 Computed tomography scan of the brain: Cerebral atrophy and hydrocephalus. Chest x-ray film personally reviewed by me: No infiltrates Assessment and plan: - metabolic encephalopathy as by the from underlying acute kidney injury.: Improvement Close neuro following. IV fluids. -Acute kidney injury. Prerenal. Improving stop Zestoretic.Renal ultrasound. Strict I's and O's. Follow labs. IV fluids. -Right hydronephrosis, cause unclear, suspected to chronic Follow clinically -Hypothyroid Synthroid 25 g daily -Moderate cognitive impairment -Possible UTI with cystitis acute IV ceftriaxone -Troponin leak in the setting of acute hemodynamic mismatch. No obvious clinical suggestion of acute coronary syndrome -Acute on chronic medical debility. PT OT. -POA: John Holbrook Patient not qualify for [facility] rehab. Spoke at length with the case minutes child welfare social worker. Also spoke to this patient insurance company. Review. Total time spent today 45 minutes with over 25 minutes of discussion. Also APS was contacted to help to find out the POA.
[2021-08-03] MEDS: LEVOTHYROXINE 75 MCG TAB PO SCH (05:39)
[2021-08-03] MEDS: CYANOCOBALAMIN 500 MCG TAB PO SCH (08:20)
[2021-08-03] MEDS: FOLIC ACID 1 MG TAB PO SCH (08:20)
[2021-08-03] MEDS: ENOXAPARIN 40 MG/0.4 ML SYRINGE SQ SCH (08:20)
[2021-08-03] MEDS: ASPIRIN 81 MG PO SCH (08:20)
[2021-08-03] MEDS: CEPHALEXIN 250 MG CAP PO SCH ×2 (08:20→12:25)
[2021-08-03 14:32] VITALS: BP 132/65; PULSE 70; TEMP 97.6
--- NOTE | 2021-08-03 17:44 | P.DS ---
Providers Date of admission: 07/28/21 09:53 Expected date of discharge: 08/03/21 Attending physician: Rene Edwards Consults: 07/27/21 22:12 Consult Physician Routine Consulting Provider: Jane Cooper Consult Reason/Comments: TWAN, hyperkalemia, UTI Do you want consulting provider notified?: Yes 07/28/21 10:23 Consult Physician Routine Consulting Provider: Romel Davenport Consult Reason/Comments: code stroke, AMS Do you want consulting provider notified?: Yes Primary care physician: [facility] Course: Chief Complaint: Altered mental status History of presenting complaint: This is a 86-year-old patient. EMS was called by a friend. Friend told the EMS that he is known the patient for about 10 years. He found him to be confusing looking pale. Not acting right. Patient had a fall about 10 days ago went to the ER was discharged. He has not seen him for about a week. Patient's apartment is trashed and he seems to be off. Patient is slow to answer questions. Patient's found to be an acute kidney injury in the ER. Patient is able to answer questions slowly. He is hungry. He knows that in the hospital. Not able to tell me much more. They can tell the month and the year slowly. Denies any fever and chills. No cough. July 29: Patient's had episodes of sinus pause. Cardiology consulted. Bit more responsive today. Eating about 25%. Moderate pain. IV fluids July 30: Answering questions more appropriately. He states that at baseline does use a wheelchair. He wants his friend to come and visit him. Seen by a therapist. Recommended ground textured diet with nectar thick liquids. EEG ordered by neurology. July 31: Laying in bed. Tired. slot manager not able to return as POA. Looking into possible rehab. Eating about 25%. August 01: Oral intake better. slot manager spoke to the [facility]. It seems patient is less active than his baseline. He was able to feed himself. Started with a stent left. Manage his own affairs. . Looking into rehab August 02: Patient's laying in bed. Tired. Requiring assistance. Spoke to the physician from the. Review from patient's insurance company. Patient has a baseline is nonambulatory. Still not qualify for rehab. Spoke to the hospice case manager and social studies teacher. Patient's POA still can't be reached. Patient will need to go back to his place with increased assistance. August 03: Patient is SURINDER Lopez came to visit the patient yesterday. Spoke to the hospice case manager. Patient will go back to his previous assisted living. He will taken off any additional help at home care. Patient is doing better today. Tolerating a diet. Discussion and discharge planning more than 35 minutes Consultation: Cardiology associates Dr. Gallegos from neurology Past medical history to include: Hypertension, hypertension hypothyroid Social history: Lives at [facility]. Patient smoked cigars from 1963 through 1993. No alcohol. Family history: Cancer Physical examination: VITAL SIGNS: 97.6, 70, 17, 132/65, 94% room air GENERAL: Laying in bed, more comfortable awake EYES: Pupils equal. Conjunctiva normal. HEENT: External appearance of nose and ears normal, oral cavity dry mucous membranes NECK: JVD not raised; masses not palpable. HEART: First and second heart sounds are normal; no edema. LUNGS: Respiratory rate normal; decreased breath sounds. ABDOMEN: Soft, nontender, liver spleen not palpable, no masses palpable. PSYCH: Answering simple questions. MUSCULAR skeletal: Evidence of OA INVESTIGATIONS, reviewed in the clinical context: August 02: Potassium 4.5 BUN 29 creatinine 1.28 B12 3.4, folate 5.6, TSH 1.6 EEG: Negative for epilepsy Iron 16 TIBC 206% saturation 7.8 transferred and 147 Renal ultrasound: Right kidney hydronephrosis. White count 5.8 hemoglobin 9.8 platelets 159 potassium 5 BUN 70 creatinine 1.89 Admission labs: Hemoglobin 10.8 potassium 6 BUN 77 creatinine 2.18 Troponin I 0.018, 0.034, 0.037 UA positive for leukoesterase, WBC 7 Urine drug screen positive for opiates Coronavirus [PCR is back at: Not detected EKG tracing personally reviewed by me-atrial fibrillation rate 88 Computed tomography scan of the brain: Cerebral atrophy and hydrocephalus. Chest x-ray film personally reviewed by me: No infiltrates Assessment and plan: - metabolic encephalopathy as by the from underlying acute kidney injury.: Improved Close neuro following. IV fluids. -Acute kidney injury. Prerenal. Improving IV fluids. -Right hydronephrosis, cause unclear, suspected to chronic Follow clinically -Hypothyroid Synthroid 25 g daily -Moderate cognitive impairment -Possible UTI with cystitis acute IV ceftriaxone. Keflex 250 mg 4 times a day total 20 tablets -Troponin leak in the setting of acute hemodynamic mismatch. No obvious clinical suggestion of acute coronary syndrome -Baseline patient sits in a wheelchair. Needs assist with standing. Able to feed himself. -POA: John Holbrook Disposition: Assisted-living Plan - Discharge Summary New Discharge Prescriptions: New Aspirin 81 mg PO DAILY tab Cephalexin [Keflex] 250 mg PO QID #20 cap Atorvastatin [Lipitor] 20 mg PO HS #30 tab Acetaminophen Tab [Tylenol] 650 mg PO Q6HR PRN tab PRN Reason: Mild Pain Or Fever > 100.5 Cyanocobalamin [Vitamin B-12] 1,000 mcg PO DAILY #60 tab Folic Acid 1 mg PO DAILY #30 tab Continue rOPINIRole HCL [Requip] 1 mg PO HS Levothyroxine Sodium [Synthroid] 75 mcg PO DAILY Discontinued Lisinopril-Hctz 20-25 mg [Zestoretic 20-25] 1 tab PO DAILY Discharge Medication List Levothyroxine Sodium [Synthroid] 75 mcg PO DAILY 06/24/19 [History] rOPINIRole HCL [Requip] 1 mg PO HS 06/24/19 [History] Acetaminophen Tab [Tylenol] 650 mg PO Q6HR PRN tab 08/03/21 [Rx] Aspirin 81 mg PO DAILY tab 08/03/21 [Rx] Atorvastatin [Lipitor] 20 mg PO HS #30 tab 08/03/21 [Rx] Cephalexin [Keflex] 250 mg PO QID #20 cap 08/03/21 [Rx] Cyanocobalamin [Vitamin B-12] 1,000 mcg PO DAILY #60 tab 08/03/21 [Rx] Folic Acid 1 mg PO DAILY #30 tab 08/03/21 [Rx] Follow up Appointment(s)/Referral(s): [facility], [NON-STAFF] - Norman Ding MD [Primary Care Provider] - 1-2 days (states the he is no longer a patient here) Activity/Diet/Wound Care/Special Instructions: Discharging RN - please call Jayant Payne at discharge to update them to expect pt - [phone]. Jackson HANDY (P: [phone]) Discharge Disposition: HOME WITH HOME HEALTH SERVICES
== END 2021-08-03 15:04 | disposition home health service (06) | DRG 682 ==
LOC: EC 19:17 → 4SSUR 22:11 → OBSVTOIN 07-28 09:53
PROVIDERS: ADMIT Hospitalist; ATTEND Hospitalist
DX: N17.0 Acute kidney failure with tubular necrosis (principal); G93.41 Metabolic encephalopathy; G82.20 Paraplegia, unspecified; Z20.822 Contact with and (suspected) exposure to COVID-19; N13.6 Pyonephrosis; G89.29 Other chronic pain; E83.52 Hypercalcemia; E86.0 Dehydration; E86.1 Hypovolemia; E87.5 Hyperkalemia; I10 Essential (primary) hypertension; I48.91 Unspecified atrial fibrillation; Z99.3 Dependence on wheelchair; Z96.653 Presence of artificial knee joint, bilateral; Z96.641 Presence of right artificial hip joint; Z92.3 Personal history of irradiation; Z87.891 Personal history of nicotine dependence; Z87.01 Personal history of pneumonia (recurrent); Z85.828 Personal history of other malignant neoplasm of skin; Z79.890 Hormone replacement therapy; H91.90 Unspecified hearing loss, unspecified ear; I44.60 Unspecified fascicular block; J32.0 Chronic maxillary sinusitis; E61.1 Iron deficiency; E03.9 Hypothyroidism, unspecified; I65.23 Occlusion and stenosis of bilateral carotid arteries
CPT/HCPCS: 36415; 70450; 70496; 70498; 71045; 72170; 76770; 80048; 80053; 80306; 80320; 81001; 82140; 82607; 82746; 83036; 83540; 83550; 83605; 83735; 84132; 84443; 84484; 85025; 85610; 85730; 87635; 93005; 94760; 95816; 96361; 96374; 96375; 99285